=== PATIENT | female | born 1965 | race African-American/Black ===

== ENCOUNTER 2017-04-28 13:22 | Inpatient (IN) | payer OTHER ==
[2017-04-28 15:25] VITALS: BMI 20.8
--- NOTE | 2017-04-28 19:06 | HP ---
CIWA Score - CIWA Score Nausea/Vomitin-Mild Nausea/No Vomiting Muscle Tremors: 4-Moderate,w/Arms Extend Anxiety: 4-Mod. Anxious/Guarded Agitation: 4-Moderately Restless Paroxysmal Sweats: 1-Minimal Palms Moist Orientation: 1-Uncertain about Date Tacttile Disturbances: 0-None Auditory Disturbances: 0-None Visual Disturbances: 0-None Headache: 0-None Present CIWA-Ar Total Score: 15 Admission ROS S - HPI Chief Complaint: WITHDRAWAL SX Allergies/Adverse Reactions: Allergies Allergy/AdvReac Type Severity Reaction Status Date / Time erythromycin base Allergy Severe Hives Verified 04/28/17 17:52 tomato Allergy Severe Hives Verified 04/28/17 17:52 History of Present Illness: 51 YEARS OLD FEMALE WITH LONG HISTORY OF ALCOHOL NICOTINE DEPENDENCE HAS WEIGHT LOSS AND DEPRESSION IS ADMITTED TO DETOX Exam Limitations: No Limitations - Ebola screening Have you traveled outside of the country in the last 21 days: No Have you had contact with anyone from an Ebola affected area: No Have you been sick,other than usual withdrawal symptoms: No Do you have a fever: No - Review of Systems Constitutional: Loss of Appetite, Changes in sleep, Unintentional Wgt. Loss, Unexplained wgt Loss EENT: reports: No Symptoms Reported Respiratory: reports: No Symptoms reported Cardiac: reports: No Symptoms Reported GI: reports: Diarrhea, Nausea, Poor Appetite, Poor Fluid Intake, Abdominal cramping : reports: No Symptoms Reported Musculoskeletal: reports: No Symptoms Reported Integumentary: reports: No Symptoms Reported Neuro: reports: Tremors Endocrine: reports: No Symptoms Reported Hematology: reports: No Symptoms Reported Psychiatric: reports: Judgement Intact, Anxious, Depressed Other Systems: Reviewed and Negative Patient History - Patient Medical History Hx Anemia: No Hx Asthma: No Hx Chronic Obstructive Pulmonary Disease (COPD): No Hx Cancer: No Hx Cardiac Disorders: No Hx Congestive Heart Failure: No Hx Hypertension: No Hx Hypercholesterolemia: No Hx Pacemaker: No HX Cerebrovascular Accident: No Hx Seizures: No Hx Diabetes: No Hx Gastrointestinal Disorders: No Hx Liver Disease: No Hx Genitourinary Disorders: No Hx Sexually Transmitted Disorders: No Hx Renal Disease (ESRD): No Hx Thyroid Disease: No Hx Human Immunodeficiency Virus (HIV): No Hx Hepatitis C: No Hx Depression: Yes Hx Suicide Attempt: No Hx Bipolar Disorder: No Hx Schizophrenia: No - Patient Surgical History Past Surgical History: Yes Hx Neurologic Surgery: No Hx Cataract Extraction: No Hx Cardiac Surgery: No Hx Lung Surgery: No Hx Breast Surgery: No Hx Breast Biopsy: No Hx Abdominal Surgery: No Hx Appendectomy: No Hx Cholecystectomy: No Hx Genitourinary Surgery: No Hx Section: No Hx Orthopedic Surgery: No Hx Hysterectomy: No Other Surgical History: 1997 RIGHT OVERY REMOVED Anesthesia Reaction: No - PPD History Previous Implant?: Yes Documented Results: Negative w/o proof Implanted On Prior [facility] Admission?: No PPD to be Administered?: Yes - Reproductive History Patient is a Female of Child Bearing Age (11 -55 yrs old): Yes Last Menstrual Period: 04/27/08 Patient : No - Smoking Cessation Smoking history: Current every day smoker Have you smoked in the past 12 months: Yes Aproximately how many cigarettes per day: 5 Hx Chewing Tobacco Use: No Initiated information on smoking cessation: Yes 'Breaking Loose' booklet given: 04/28/17 - Substance & Tx. History Hx Alcohol Use: Yes Hx Substance Use: Yes Substance Use Type: Alcohol, Cocaine Hx Substance Use Treatment: Yes (2014) - Substances Abused Alcohol Route: Oral Frequency: Daily Amount used: liquor- 3 pints, beer- 3 six packs Age of first use: 27 Date of Last Use: 04/28/17 Crack Route: Smoking Frequency: Daily Amount used: 10 bags Age of first use: 32 Date of Last Use: 04/28/17 Family Disease History - Family Disease History Family Disease History: [place]: Mother (), Other: Father ( KILLED), Mother Admission Physical Exam [facility] - Vital Signs Vital Signs: Vital Signs - 24 hr 04/28/17 15:19 Temperature 98.1 F Pulse Rate 92 H Respiratory 78 H Rate Blood Pressure 100/78 - Physical General Appearance: Yes: Appropriately Dressed, Mild Distress, Moderate Distress , Thin, Tremorous, Irritable, Sweating, Anxious HEENTM: Yes: Hearing grossly Normal, Normal ENT Inspection, Normocephalic, Normal Voice Respiratory: Yes: Chest Non-Tender, Lungs Clear, Normal Breath Sounds, No Respiratory Distress, No Accessory Muscle Use Neck: Yes: Supple, Trachea in good position Breast: Yes: Breasts Symetrical Cardiology: Yes: Regular Rhythm, S1, S2, Tachycardia Abdominal: Yes: Normal Bowel Sounds, Non Tender, Soft Genitourinary: Yes: Within Normal Limits Back: Yes: Normal Inspection Musculoskeletal: Yes: full range of Motion, Gait Steady Extremities: Yes: Normal Inspection, Normal Range of Motion, Non-Tender, Tremors Neurological: Yes: Alert, Motor Strength 5/5, Normal Response, Depressed Affect Integumentary: Yes: Warm Lymphatic: Yes: Within Normal Limits - Diagnostic (1) Alcohol dependence with uncomplicated withdrawal Current Visit: Yes Status: Acute (2) Nicotine dependence Current Visit: Yes Status: Acute Qualifiers: Nicotine product type: cigarettes Substance use status: in withdrawal Qualified Code(s): F17.213 - Nicotine dependence, cigarettes, with withdrawal (3) Weight loss Current Visit: Yes Status: Acute (4) Depression (emotion) Current Visit: Yes Status: Suspected Qualifiers: Depression Type: dysthymia Qualified Code(s): F34.1 - Dysthymic disorder Cleared for Admission [facility] - Detox or Rehab [facility] Level of Care: Medically Managed Detox Regimen/Protocol: Librium [facility] Breath Alcohol Content Breath Alcohol Content: 0 Urine Pregancy Test - Result Urine Test Results: Negative- NO Line Present Urine Drug Screen - Results Drug Screen Negative: No Urine Drug Screen Results: CLARISSA-Cocaine, BZO-Benzodiazepines
[2017-04-28] MEDS ORDERED: MAGNESIUM HYDROX 2400MG/30ML ORAL SUSPENSION 30 ML CUP PO PRN (19:09)
[2017-04-28] MEDS ORDERED: diphenhydrAMINE HCL 50 MG CAPSULE PO PRN (19:09)
[2017-04-28] MEDS ORDERED: MAG HYDROX/AL HYDROX/SIMETH 30 ML UNIT-DOSE CUP PO PRN (19:09)
[2017-04-28] MEDS ORDERED: ACETAMINOPHEN 325 MG TABLET (FP) PO PRN (19:09)
[2017-04-28] MEDS ORDERED: LOPERAMIDE HCL 2 MG CAPSULE PO PRN (19:09)
[2017-04-28] MEDS ORDERED: guaiFENesin/D-METHORPHAN HB 10 ML UNIT-DOSE CUPS PO PRN (19:09)
[2017-04-28] MEDS ORDERED: P-EPHED 60MG/TRIPROLIDI 2.5MG TABLET PO PRN (19:09)
[2017-04-28] MEDS ORDERED: chlordiazePOXIDE HCL 25 MG CAPSULE PO PRN (19:09)
[2017-04-28] MEDS ORDERED: IBUPROFEN 400 MG TABLET (FP) PO PRN (19:09)
[2017-04-28] MEDS ORDERED: MENTHOL/PHENOL 1 EACH UD MM PRN (19:09)
[2017-04-28] MEDS ORDERED: NICOTINE POLACRILEX 2 MG GUM BC PRN (19:09)
[2017-04-28] MEDS ORDERED: chlordiazePOXIDE HCL 25 MG CAPSULE PO ONE (19:09)
[2017-04-28] MEDS ORDERED: MAGNESIUM CITRATE 300 ML BOTTLE PO PRN (19:09)
[2017-04-28] MEDS ORDERED: hydrOXYzine PAMOATE 50 MG CAPSULE (FP) PO PRN (19:09)
[2017-04-28] MEDS: THIAMINE HCL 100 MG TABLET (FP) PO SCH (23:32)
[2017-04-28] MEDS: chlordiazePOXIDE HCL 25 MG CAPSULE PO SCH (23:32)
[2017-04-29 00:16] LABS: URINE APPEARANCE SLCLOUDY; URINE BILIRUBIN NEGATIVE (NEGATIVE); URINE BLOOD NEGATIVE (NEGATIVE); URINE COLOR YELLOW; URINE GLUCOSE (UA) NEGATIVE (NEGATIVE); URINE KETONE NEGATIVE (NEGATIVE); URINE NITRITE NEGATIVE (NEGATIVE); URINE PROTEIN NEGATIVE (NEGATIVE)
[2017-04-29 00:18] LABS: URINE LEUK ESTERASE 3+ (NEGATIVE)
[2017-04-29 00:24] LABS: URINE RBC 2 /hpf (0-3); URINE WBC 42 /hpf (3-5)
[2017-04-29] MEDS: chlordiazePOXIDE HCL 25 MG CAPSULE PO SCH ×4 (06:42→22:58)
--- NOTE | 2017-04-29 09:30 | EKG ---
Test Reason : Blood Pressure : / mmHG Vent. Rate : 076 BPM Atrial Rate : 076 BPM P-R Int : 154 ms QRS Dur : 090 ms QT Int : 402 ms P-R-T Axes : 067 024 057 degrees QTc Int : 452 ms NORMAL SINUS RHYTHM NORMAL ECG NO PREVIOUS ECGS AVAILABLE Confirmed by MD TRAV, TEGAN ([id number]) on 04/29/2017 9:29:39 AM Referred By: Confirmed By:TEGAN RAVI MD
[2017-04-29 11:03] LABS: MCH 32.2 pg (25.7-33.7); MCHC 33.2 g/dl (32.0-36.0); MEAN CELL VOLUME 97.1 fl (80-96); MEAN PLT VOLUME 9.7 fl (7.5-11.1); PLATELET COUNT 157 K/MM3 (134-434); RDW 13.9 % (11.6-15.6); WHITE BLOOD COUNT 3.7 K/mm3 (4.0-10.0)
[2017-04-29] MEDS: PRENATAL VITAMINS W/ FOLIC ACID TABLET (FP) PO SCH (11:07)
[2017-04-29] MEDS: NICOTINE 14 MG/24 HOURS TOPICAL PATCH TD SCH (11:08)
[2017-04-29 11:17] LABS: ALBUMIN 3.4 g/dl (3.4-5.0); ALK PHOS 79 U/L (45-117); ANION GAP 12 (8-16); BILIRUBIN,TOTAL 0.7 mg/dL (0.2-1.0); CALCIUM 9.8 mg/dL (8.5-10.1); CO2 25 mmol/L (21-32); CREATININE 0.8 mg/dL (0.55-1.02); GLUCOSE,RANDOM 156 mg/dL (74-106); SGOT/AST 16 U/L (15-37); SGPT/ALT 28 U/L (12-78); TOT PROT 8.6 g/dl (6.4-8.2)
--- NOTE | 2017-04-29 13:14 | PN ---
S CIWA - CIWA Score Nausea/Vomitin Muscle Tremors: 2 Anxiety: 2 Agitation: 2 Paroxysmal Sweats: 2 Orientation: 0-Oriented Tacttile Disturbances: 1-Very Mild Itch/Numbness Auditory Disturbances: 1-Very Mild Visual Disturbances: 1-Very Mild Sensitivity Headache: 2-Mild CIWA-Ar Total Score: 15 S Progress Note (SOAP) Subjective: tremors, sweats, sleep interruption Objective: 04/29/17 13:13 Vital Signs - 8 hr 04/29/17 04/29/17 06:55 10:00 Temperature 97.2 F L 96.8 F L Pulse Rate 82 105 H Respiratory 18 18 Rate Blood Pressure 116/75 94/65 Laboratory Last Values WBC 3.7 K/mm3 (4.0-10.0) L 04/29/17 07:50 RBC 4.04 M/mm3 (3.60-5.2) 04/29/17 07:50 Hgb 13.0 GM/dL (10.7-15.3) 04/29/17 07:50 Hct 39.3 % (32.4-45.2) 04/29/17 07:50 MCV 97.1 fl (80-96) H 04/29/17 07:50 MCH 32.2 pg (25.7-33.7) 04/29/17 07:50 MCHC 33.2 g/dl (32.0-36.0) 04/29/17 07:50 RDW 13.9 % (11.6-15.6) 04/29/17 07:50 Plt Count 157 K/MM3 (134-434) 04/29/17 07:50 MPV 9.7 fl (7.5-11.1) 04/29/17 07:50 Sodium 138 mmol/L (136-145) 04/29/17 07:50 Potassium 4.1 mmol/L (3.5-5.1) 04/29/17 07:50 Chloride 101 mmol/L (98-107) 04/29/17 07:50 Carbon Dioxide 25 mmol/L (21-32) 04/29/17 07:50 Anion Gap 12 (8-16) 04/29/17 07:50 BUN 15 mg/dL (7-18) 04/29/17 07:50 Creatinine 0.8 mg/dL (0.55-1.02) 04/29/17 07:50 Creat Clearance w eGFR > 60 (>60) 04/29/17 07:50 Random Glucose 156 mg/dL (74-106) H 04/29/17 07:50 Calcium 9.8 mg/dL (8.5-10.1) 04/29/17 07:50 Total Bilirubin 0.7 mg/dL (0.2-1.0) 04/29/17 07:50 AST 16 U/L (15-37) 04/29/17 07:50 ALT 28 U/L (12-78) 04/29/17 07:50 Alkaline Phosphatase 79 U/L (45-117) 04/29/17 07:50 Total Protein 8.6 g/dl (6.4-8.2) H 04/29/17 07:50 Albumin 3.4 g/dl (3.4-5.0) 04/29/17 07:50 Urine Color Yellow 04/28/17 20:22 Urine Appearance Slcloudy 04/28/17 20:22 Urine pH 7.0 (5.0-8.0) 04/28/17 20:22 Ur Specific [place] 1.015 (1.005-1.025) 04/28/17 20:22 Urine Protein Negative (NEGATIVE) 04/28/17 20:22 Urine Glucose (UA) Negative (NEGATIVE) 04/28/17 20:22 Urine Ketones Negative (NEGATIVE) 04/28/17 20:22 Urine Blood Negative (NEGATIVE) 04/28/17 20:22 Urine Nitrite Negative (NEGATIVE) 04/28/17 20:22 Urine Bilirubin Negative (NEGATIVE) 04/28/17 20:22 Urine Urobilinogen 2.0 mg/dL (0.2-1.0) H 04/28/17 20:22 Ur Leukocyte Esterase 3+ (NEGATIVE) H 04/28/17 20:22 Urine RBC 2 /hpf (0-3) 04/28/17 20:22 Urine WBC 42 /hpf (3-5) 04/28/17 20:22 Ur Epithelial Cells Moderate /hpf (FEW) 04/28/17 20:22 labs noted, positive leukocyte esterase Assessment: 04/29/17 13:13 withdrawal sx Plan: continue detox, repeat UA
--- NOTE | 2017-04-29 18:20 | CONSULT ---
[facility] Psychiatric Consult - Data Date of interview: 04/29/17 Admission source: [facility] Identifying data: First admission to [facility] for this 51 y/o AA female seeking detox treatment on for alcohol and cocaine (crack) dependence.Patient is single,a mother of ten,domiciled,unemployed and supported on SSI benefits. Substance Abuse History: Discussed with patient in this interview. Smoking Cessation. Smoking history: Current every day smoker. Have you smoked in the past 12 months: Yes. Aproximately how many cigarettes per day: 5. Hx Chewing Tobacco Use: No. Initiated information on smoking cessation: Yes. 'Breaking Loose' booklet given: 04/28/17. - Substance & Tx. History. Hx Alcohol Use: Yes. Hx Substance Use: Yes. Substance Use Type: Alcohol, Cocaine. Hx Substance Use Treatment: Yes (2014). - Substances Abused. Alcohol. Route: Oral. Frequency: Daily. Amount used: liquor- 3 pints, beer- 3 six packs. Age of first use: 27. Date of Last Use: 04/28/17. Crack. Route: Smoking. Frequency: Daily. Amount used: 10 bags. Age of first use: 32. Date of Last Use: 04/28/17 Medical History: Patient endorses good general health. Psychiatric History: Patient denies. Physical/Sexual Abuse/Trauma History: No reported history of abuse. Additional Comment: Urine Drug Screen Results: CLARISSA-Cocaine, BZO- Benzodiazepines.Noted. Mental Status Exam - Mental Status Exam Alert and Oriented to: Time, Place, Person Cognitive Function: Good Patient Appearance: Well Groomed Mood: Hopeful, Euthymic Affect: Appropriate, Normal Range Patient Behavior: Cooperative Speech Pattern: Clear Voice Loudness: Normal Thought Process: Intact, Goal Oriented Thought Disorder: Not Present Hallucinations: Denies Suicidal Ideation: Denies Homicidal Ideation: Denies Insight/Judgement: Poor Sleep: Poorly, Difficulty falling asleep Appetite: Good Muscle strength/Tone: Normal Gait/Station: Normal Psychiatric Findings - Problem List ([place] 1, 2,3) (1) Alcohol dependence with uncomplicated withdrawal Current Visit: Yes Status: Acute (2) Cocaine dependence Current Visit: Yes Status: Acute (3) Nicotine dependence Current Visit: Yes Status: Acute Qualifiers: Nicotine product type: cigarettes Substance use status: in withdrawal Qualified Code(s): F17.213 - Nicotine dependence, cigarettes, with withdrawal (4) Insomnia Current Visit: Yes Status: Acute - Initial Treatment Plan Initial Treatment Plan: Psychoeducation.Detoxification.Ambien 5 mg po hs.Side effects/benefits discussed with patient.She agrees with careplan.Observation.
[2017-04-29] MEDS: ZOLPIDEM TARTRATE 5 MG TABLET PO PRN (22:58)
[2017-04-29] MEDS: THIAMINE HCL 100 MG TABLET (FP) PO SCH (22:58)
[2017-04-30] MEDS: chlordiazePOXIDE HCL 25 MG CAPSULE PO SCH ×2 (06:06→10:30)
[2017-04-30] MEDS: PRENATAL VITAMINS W/ FOLIC ACID TABLET (FP) PO SCH (10:30)
[2017-04-30] MEDS: NICOTINE 14 MG/24 HOURS TOPICAL PATCH TD SCH (10:30)
--- NOTE | 2017-04-30 13:37 | PN ---
[facility] CIWA - CIWA Score Nausea/Vomitin-No Nausea/No Vomiting Muscle Tremors: 3 Anxiety: 3 Agitation: 2 Paroxysmal Sweats: 2 Orientation: 0-Oriented Tacttile Disturbances: 0-None Auditory Disturbances: 0-None Visual Disturbances: 0-None Headache: 0-None Present CIWA-Ar Total Score: 10 S Progress Note (SOAP) Subjective: Anxiety,tremors,sweating,interrupted sleep,restless Objective: 04/30/17 13:37 Vital Signs - 8 hr 04/30/17 04/30/17 06:50 10:00 Temperature 97.6 F 97.7 F Pulse Rate 77 95 H Respiratory 18 18 Rate Blood Pressure 107/74 102/79 Laboratory Last Values WBC 3.7 K/mm3 (4.0-10.0) L 04/29/17 07:50 RBC 4.04 M/mm3 (3.60-5.2) 04/29/17 07:50 Hgb 13.0 GM/dL (10.7-15.3) 04/29/17 07:50 Hct 39.3 % (32.4-45.2) 04/29/17 07:50 MCV 97.1 fl (80-96) H 04/29/17 07:50 MCH 32.2 pg (25.7-33.7) 04/29/17 07:50 MCHC 33.2 g/dl (32.0-36.0) 04/29/17 07:50 RDW 13.9 % (11.6-15.6) 04/29/17 07:50 Plt Count 157 K/MM3 (134-434) 04/29/17 07:50 MPV 9.7 fl (7.5-11.1) 04/29/17 07:50 Sodium 138 mmol/L (136-145) 04/29/17 07:50 Potassium 4.1 mmol/L (3.5-5.1) 04/29/17 07:50 Chloride 101 mmol/L (98-107) 04/29/17 07:50 Carbon Dioxide 25 mmol/L (21-32) 04/29/17 07:50 Anion Gap 12 (8-16) 04/29/17 07:50 BUN 15 mg/dL (7-18) 04/29/17 07:50 Creatinine 0.8 mg/dL (0.55-1.02) 04/29/17 07:50 Creat Clearance w eGFR > 60 (>60) 04/29/17 07:50 Random Glucose 156 mg/dL (74-106) H 04/29/17 07:50 Calcium 9.8 mg/dL (8.5-10.1) 04/29/17 07:50 Total Bilirubin 0.7 mg/dL (0.2-1.0) 04/29/17 07:50 AST 16 U/L (15-37) 04/29/17 07:50 ALT 28 U/L (12-78) 04/29/17 07:50 Alkaline Phosphatase 79 U/L (45-117) 04/29/17 07:50 Total Protein 8.6 g/dl (6.4-8.2) H 04/29/17 07:50 Albumin 3.4 g/dl (3.4-5.0) 04/29/17 07:50 Urine Color Yellow 04/28/17 20:22 Urine Appearance Slcloudy 04/28/17 20:22 Urine pH 7.0 (5.0-8.0) 04/28/17 20:22 Ur Specific [place] 1.015 (1.005-1.025) 04/28/17 20:22 Urine Protein Negative (NEGATIVE) 04/28/17 20:22 Urine Glucose (UA) Negative (NEGATIVE) 04/28/17 20:22 Urine Ketones Negative (NEGATIVE) 04/28/17 20:22 Urine Blood Negative (NEGATIVE) 04/28/17 20:22 Urine Nitrite Negative (NEGATIVE) 04/28/17 20:22 Urine Bilirubin Negative (NEGATIVE) 04/28/17 20:22 Urine Urobilinogen 2.0 mg/dL (0.2-1.0) H 04/28/17 20:22 Ur Leukocyte Esterase 3+ (NEGATIVE) H 04/28/17 20:22 Urine RBC 2 /hpf (0-3) 04/28/17 20:22 Urine WBC 42 /hpf (3-5) 04/28/17 20:22 Ur Epithelial Cells Moderate /hpf (FEW) 04/28/17 20:22 RPR Titer Nonreactive (NONREACTIVE) 04/29/17 07:50 labs noted Assessment: 04/30/17 13:37 Withdrawal sx. Plan: Continue detox
[2017-04-30] MEDS: chlordiazePOXIDE 5 MG CAPSULE PO SCH ×2 (17:07→22:32)
[2017-04-30] MEDS: ZOLPIDEM TARTRATE 5 MG TABLET PO PRN (22:32)
[2017-04-30] MEDS: THIAMINE HCL 100 MG TABLET (FP) PO SCH (22:32)
[2017-04-30] MEDS ORDERED: chlordiazePOXIDE 5 MG CAPSULE PO SCH (23:00)
[2017-05-01] MEDS: chlordiazePOXIDE 5 MG CAPSULE PO SCH ×2 (06:02→10:46)
[2017-05-01 06:43] VITALS: TEMP 97.5
[2017-05-01] MEDS: PRENATAL VITAMINS W/ FOLIC ACID TABLET (FP) PO SCH (10:42)
[2017-05-01] MEDS: NICOTINE 14 MG/24 HOURS TOPICAL PATCH TD SCH (10:47)
--- NOTE | 2017-05-01 11:37 | PN ---
[facility] Progress Note (SOAP) Subjective: feeling fine a little anxious Objective: 05/01/17 11:36 Vital Signs Temperature 97.5 F L 05/01/17 06:00 Pulse Rate 80 05/01/17 06:00 Respiratory Rate 18 05/01/17 06:00 Blood Pressure 105/68 05/01/17 06:00 O2 Sat by Pulse Oximetry (%) awake/alert ambulating no acute distress Assessment: 05/01/17 11:37 mild withdrawal sx Plan: continue detox d/c in am
--- NOTE | 2017-05-01 14:21 | PN ---
[facility] Progress Note Note: pt has an opportunity to go to rehab today,pt denies any withdrawals and feels fine. pt will be d/c today.
--- NOTE | 2017-05-01 14:27 | DS ---
[facility] Detox Discharge Summary Admission Date: 04/28/17 - Physical Exam Results Vital Signs: Vital Signs Temperature 97.5 F L 05/01/17 06:00 Pulse Rate 80 05/01/17 06:00 Respiratory Rate 18 05/01/17 06:00 Blood Pressure 105/68 05/01/17 06:00 O2 Sat by Pulse Oximetry (%) - Medication Discharge Medications: Ambulatory Orders NK [No Known Home Medication] 04/28/17
[2017-05-01 15:22] VITALS: BP 103/73; PULSE 97
[2017-05-01] MEDS ORDERED: chlordiazePOXIDE HCL 10 MG CAPSULE PO SCH ×2 (17:00→23:00)
== END 2017-05-01 15:05 | disposition other institution (70) | DRG 774 ==
LOC: YASAS 13:22 → Y6N 17:28
PROVIDERS: ADMIT Internal Medicine Addiction Medicine; ATTEND Internal Medicine Addiction Medicine
PROC: HZ2ZZZZ Detoxification Services for Substance Abuse Treatment (ICD-10-PCS; principal; 2017-04-28)
DX: F10.230 Alcohol dependence with withdrawal, uncomplicated (principal); F14.20 Cocaine dependence, uncomplicated; F17.213 Nicotine dependence, cigarettes, with withdrawal; F34.1 Dysthymic disorder; R00.0 Tachycardia, unspecified; G47.00 Insomnia, unspecified; Z91.018 Allergy to other foods; Z87.898 Personal history of other specified conditions
CPT/HCPCS: 36415; 80053; 81003; 81015; 85027; 86593; 93005; 93010

== ENCOUNTER 2017-05-01 15:15 | Inpatient (IN) | payer OTHER ==
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
[2017-05-01] MEDS ORDERED: SUVOREXANT 10 MG TABLET PO PRN (16:24)
[2017-05-01] MEDS ORDERED: LOPERAMIDE HCL 2 MG CAPSULE PO PRN (16:26)
[2017-05-01] MEDS ORDERED: IBUPROFEN 400 MG TABLET (FP) PO PRN (16:26)
[2017-05-01] MEDS ORDERED: NICOTINE 14 MG/24 HOURS TOPICAL PATCH TD PRN (16:26)
[2017-05-01] MEDS ORDERED: MAGNESIUM HYDROX 2400MG/30ML ORAL SUSPENSION 30 ML CUP PO PRN (16:26)
[2017-05-01] MEDS ORDERED: MAGNESIUM CITRATE 300 ML BOTTLE PO PRN (16:26)
[2017-05-01] MEDS ORDERED: MENTHOL/PHENOL 1 EACH UD MM PRN (16:26)
[2017-05-01] MEDS ORDERED: ACETAMINOPHEN 325 MG TABLET (FP) PO PRN (16:26)
[2017-05-01] MEDS ORDERED: NICOTINE POLACRILEX 2 MG GUM BUC PRN (16:26)
[2017-05-01] MEDS ORDERED: MAG HYDROX/AL HYDROX/SIMETH 30 ML UNIT-DOSE CUP PO PRN (16:26)
[2017-05-01] MEDS ORDERED: P-EPHED 60MG/TRIPROLIDI 2.5MG TABLET PO PRN (16:26)
[2017-05-01] MEDS ORDERED: guaiFENesin/D-METHORPHAN HB 10 ML UNIT-DOSE CUPS PO PRN (16:26)
[2017-05-01] MEDS ORDERED: diphenhydrAMINE HCL 50 MG CAPSULE PO PRN (16:26)
--- NOTE | 2017-05-01 16:26 | HP ---
[facility] Re[facility] Assess/Revision - Admission History Admitted to Rehab from: [facility] [place] Date of Admission to Rehab: 05/01/17 - Findings Detox History & Physical reviewed: Yes Concur with findings: Yes Comments/Additional Findings: transferred from detox to rehab admission as per protocol
[2017-05-01] MEDS ORDERED: THIAMINE HCL 100 MG TABLET (FP) PO SCH (22:00)
[2017-05-02] MEDS ORDERED: metFORMIN HCL 500 MG TABLET (FP) PO SCH (07:00)
--- NOTE | 2017-05-02 07:33 | PN ---
S Progress Note (SOAP) Subjective: Pt. had two falls within less than one hour. 1st fall: occurred at 6:05am: Pt. reports she was in bathroom and went to flush the toilet and missed the handle. She fell on her right side of her upper body. 2nd fall: occurred at 6:45am: Pt. walking to her room and states her knees gave out and she fell on her left hip. She denies hitting her head on both occasions. Objective: 05/02/17 07:31 Last Vital Signs Temp Pulse Resp BP Pulse Ox 97.6 F 75 18 111/77 05/02/17 07:18 05/02/17 07:18 05/02/17 07:18 05/02/17 07:18 Assessment: 05/02/17 07:31 VSS, skin intact, no bruises noted, full ROM Plan: During the assessment, pt. reported she did not disclose during her admission that she is diabetic and bipolar. She has not had her anti-psychotic or diabetic since prior to admission. Plan: Fall protocol #2 initiated BGM BIDAC Metformin 500mg PO BID IBU prn 1:1 ordered Psych consult
[2017-05-02 09:05] VITALS: BP 94/68; PULSE 93; TEMP 97.8
[2017-05-02] MEDS ORDERED: PRENATAL VITAMINS W/ FOLIC ACID TABLET (FP) PO SCH (10:00)
--- NOTE | 2017-05-02 10:02 | PN ---
[facility] Progress Note Note: Pt. decided to sign out ama. I came up unit to see pt. and assess her mental status. She's currently on fall protocol #2,she does not want to stay for 24hrs to complete the protocol. She's alert,coherent,oriented and cooperative. Mini mental exam is normal. Vital Signs - 8 hr 05/02/17 05/02/17 05/02/17 02:46 03:30 07:18 Temperature 97.7 F 97.6 F Pulse Rate 67 75 Respiratory 18 18 18 Rate Blood Pressure 111/76 111/77 05/02/17 05/02/17 07:39 08:05 Temperature 97.5 F L 97.8 F Pulse Rate 79 93 H Respiratory 18 18 Rate Blood Pressure 120/84 94/68 Laboratory Last Values POC Glucometer 92 UNITS (()) 05/02/17 06:40 Pt. filled her prescriptions for zoloft, depakote & metformin between 04/14 to 04/27/17. She does not need any prescriptions.
== END 2017-05-02 11:10 | disposition left against medical advice (07) | DRG 770 ==
LOC: YASAS 15:15 → Y3E 15:17
PROVIDERS: ADMIT Psychiatry & Neurology Psychiatry; ATTEND Psychiatry & Neurology Psychiatry
PROC: HZ42ZZZ Group Counseling for Substance Abuse Treatment, Cognitive-Behavioral (ICD-10-PCS; principal; 2017-05-01)
DX: F10.20 Alcohol dependence, uncomplicated (principal); F14.20 Cocaine dependence, uncomplicated; F17.210 Nicotine dependence, cigarettes, uncomplicated; F19.24 Other psychoactive substance dependence with psychoactive substance-induced mood disorder; E11.9 Type 2 diabetes mellitus without complications; Z91.018 Allergy to other foods; Z79.84 Long term (current) use of oral hypoglycemic drugs; W18.30XA Fall on same level, unspecified, initial encounter; Z91.81 History of falling; Y93.89 Activity, other specified; Y92.230 Patient room in hospital as the place of occurrence of the external cause

== ENCOUNTER 2017-07-05 11:18 | Inpatient (IN) | payer OTHER ==
[2017-07-05 12:57] VITALS: BMI 21.6
--- NOTE | 2017-07-05 15:02 | HP ---
CIWA Score - CIWA Score Nausea/Vomitin Muscle Tremors: 3 Anxiety: 3 Agitation: 3 Paroxysmal Sweats: 2 Orientation: 0-Oriented Tacttile Disturbances: 2-Mild Itch/Numbness/Burn Auditory Disturbances: 2-Mild Harshness/Frighten Visual Disturbances: 1-Very Mild Sensitivity Headache: 2-Mild CIWA-Ar Total Score: 21 Admission ROS BHS - HPI Chief Complaint: i need help to stop drinking alcohol and crack Allergies/Adverse Reactions: Allergies Allergy/AdvReac Type Severity Reaction Status Date / Time erythromycin base Allergy Severe Hives Verified 07/05/17 14:54 tomato Allergy Severe Hives Verified 07/05/17 14:54 History of Present Illness: this 51 years old female with alcohol and crack dependence,seeking detox,last treatment 04/28/17 to 05/01/17 syncope alcohol related nicotine dependence bipolar disorder longest period of sobriety 10 years Exam Limitations: No Limitations - Ebola screening Have you traveled outside of the country in the last 21 days: No (N) Have you had contact with anyone from an Ebola affected area: No Have you been sick,other than usual withdrawal symptoms: No Do you have a fever: No - Review of Systems Constitutional: Loss of Appetite, Malaise, Night Sweats, Changes in sleep, Weakness, Unintentional Wgt. Loss EENT: reports: Nose Congestion Respiratory: reports: No Symptoms reported Cardiac: reports: No Symptoms Reported GI: reports: Diarrhea, Nausea, Vomiting, Abdominal cramping : reports: No Symptoms Reported Musculoskeletal: reports: Back Pain, Muscle Pain Integumentary: reports: Dryness Neuro: reports: Headache, Tremors Endocrine: reports: No Symptoms Reported Hematology: reports: No Symptoms Reported Psychiatric: reports: No Sypmtoms Reported, Judgement Intact, Mood/Affect Appropiate, Depressed Patient History - Patient Medical History Hx Anemia: No Hx Asthma: No Hx Chronic Obstructive Pulmonary Disease (COPD): No Hx Cancer: No Hx Cardiac Disorders: No Hx Congestive Heart Failure: No Hx Hypertension: No Hx Hypercholesterolemia: No Hx Pacemaker: No HX Cerebrovascular Accident: No Hx Seizures: No Hx Diabetes: No Hx Gastrointestinal Disorders: No Hx Liver Disease: No Hx Genitourinary Disorders: No Hx Sexually Transmitted Disorders: No Hx Renal Disease (ESRD): No Hx Thyroid Disease: No Hx Human Immunodeficiency Virus (HIV): No (07/07 negative) Hx Hepatitis C: No Hx Depression: No Hx Suicide Attempt: No Hx Bipolar Disorder: No Hx Schizophrenia: No Other Medical History: no suicidal,no homicidal - Patient Surgical History Past Surgical History: Yes Hx Neurologic Surgery: No Hx Cataract Extraction: No Hx Cardiac Surgery: No Hx Lung Surgery: No Hx Breast Surgery: No Hx Breast Biopsy: No Hx Abdominal Surgery: No Hx Appendectomy: No Hx Cholecystectomy: No Hx Genitourinary Surgery: No Hx Section: No Hx Orthopedic Surgery: No Hx Hysterectomy: No Other Surgical History: 1997 RIGHT OVERY REMOVED Anesthesia Reaction: No - PPD History Previous Implant?: Yes Documented Results: Negative w/proof Date: 04/30/17 Results: 0 mm PPD to be Administered?: No - Reproductive History Patient is a Female of Child Bearing Age (11 -55 yrs old): Yes Last Menstrual Period: 08/29/07 Patient : No - Smoking Cessation Smoking history: Current every day smoker Have you smoked in the past 12 months: Yes Aproximately how many cigarettes per day: 5 Hx Chewing Tobacco Use: No Initiated information on smoking cessation: Yes 'Breaking Loose' booklet given: 07/05/17 - Substance & Tx. History Hx Alcohol Use: Yes Hx Substance Use: Yes Substance Use Type: Alcohol, Cocaine Hx Substance Use Treatment: Yes ([facility] 04/28/17 to 05/01/17) - Substances Abused Alcohol Route: Oral Frequency: Daily Amount used: 3 PINTS RUM Age of first use: 27 Date of Last Use: 07/05/17 Cocaine Route: Smoking Frequency: Daily Amount used: $200 Age of first use: 27 Date of Last Use: 07/05/17 Family Disease History - Family Disease History Family Disease History: [place]: Mother (), Other: Father ( KILLED), Mother Admission Physical Exam S - Vital Signs Vital Signs: Vital Signs - 24 hr 07/05/17 12:51 Temperature 97 F L Pulse Rate 93 H Respiratory 20 Rate Blood Pressure 86/70 - Physical General Appearance: Yes: Moderate Distress, Tremorous, Irritable, Sweating, Anxious HEENTM: Yes: Normal ENT Inspection, JENNIFER, Pharynx Normal Respiratory: Yes: Lungs Clear, Normal Breath Sounds, No Respiratory Distress Neck: Yes: Within Normal Limits, Supple, Trachea in good position Breast: Yes: Breast Exam Deferred Cardiology: Yes: Within Normal Limits, Regular Rhythm, Regular Rate, S1, S2 Abdominal: Yes: Within Normal Limits, Normal Bowel Sounds, Non Tender, Flat, Soft Genitourinary: Yes: Within Normal Limits Back: Yes: Muscle Spasm Musculoskeletal: Yes: full range of Motion, Back pain, Muscle Pain Extremities: Yes: Within Normal Limits, Normal Range of Motion, Tremors Neurological: Yes: Within Normal Limits, clinical molecular geneticist II-XII NML intact, Alert, Motor Strength 5/5 Integumentary: Yes: Dry Lymphatic: Yes: Within Normal Limits - Diagnostic (1) Alcohol dependence with uncomplicated withdrawal Current Visit: No Status: Chronic (2) Diabetes mellitus, type 2 Current Visit: No Status: Acute (3) Weight loss Current Visit: No Status: Acute (4) Cocaine dependence Current Visit: No Status: Chronic Qualifiers: Substance use status: uncomplicated Qualified Code(s): F14.20 - Cocaine dependence, uncomplicated (5) Insomnia Current Visit: No Status: Chronic (6) Nicotine dependence Current Visit: No Status: Chronic Qualifiers: Nicotine product type: cigarettes Substance use status: uncomplicated Qualified Code(s): F17.210 - Nicotine dependence, cigarettes, uncomplicated (7) Bipolar disorder Current Visit: Yes Status: Acute Cleared for Admission [facility] - Detox or Rehab [facility] Level of Care: Medically Managed Detox Regimen/Protocol: Librium [facility] Breath Alcohol Content Breath Alcohol Content: 0 Urine Pregancy Test - Result Urine Test Results: Negative- NO Line Present Urine Drug Screen - Results Drug Screen Negative: No Urine Drug Screen Results: CLARISSA-Cocaine, BZO-Benzodiazepines
[2017-07-05] MEDS ORDERED: MAGNESIUM HYDROX 2400MG/30ML ORAL SUSPENSION 30 ML CUP PO PRN (15:12)
[2017-07-05] MEDS ORDERED: hydrOXYzine PAMOATE 25 MG CAPSULE (FP) PO PRN (15:12)
[2017-07-05] MEDS ORDERED: MAGNESIUM CITRATE 300 ML BOTTLE PO PRN (15:12)
[2017-07-05] MEDS ORDERED: chlordiazePOXIDE HCL 25 MG CAPSULE PO PRN (15:12)
[2017-07-05] MEDS ORDERED: ACETAMINOPHEN 325 MG TABLET (FP) PO PRN (15:12)
[2017-07-05] MEDS ORDERED: guaiFENesin/D-METHORPHAN HB 10 ML UNIT-DOSE CUPS PO PRN (15:12)
[2017-07-05] MEDS ORDERED: MAG HYDROX/AL HYDROX/SIMETH 30 ML UNIT-DOSE CUP PO PRN (15:12)
[2017-07-05] MEDS ORDERED: LOPERAMIDE HCL 2 MG CAPSULE PO PRN (15:12)
[2017-07-05] MEDS ORDERED: MENTHOL/PHENOL 1 EACH UD MM PRN (15:12)
[2017-07-05] MEDS ORDERED: P-EPHED 60MG/TRIPROLIDI 2.5MG TABLET PO PRN (15:12)
[2017-07-05] MEDS ORDERED: chlordiazePOXIDE HCL 25 MG CAPSULE PO ONE (15:42)
[2017-07-05] MEDS: chlordiazePOXIDE HCL 25 MG CAPSULE PO SCH ×2 (17:17→22:43)
[2017-07-05] MEDS: THIAMINE HCL 100 MG TABLET (FP) PO SCH (22:43)
[2017-07-06] MEDS: chlordiazePOXIDE HCL 25 MG CAPSULE PO SCH (05:39)
--- NOTE | 2017-07-06 08:23 | CONSULT ---
[facility] Psychiatric Consult - Data Date of interview: 07/06/17 Admission source: [facility] Identifying data: This is 51 uyears old female with Bipolar Disorder hjistory, psychiatric hospitalization history inntoxoicated with: Alcohol, Cocaien and Nicotine Substance Abuse History: - Smoking Cessation. Smoking history: Current every day smoker. Have you smoked in the past 12 months: Yes. Aproximately how many cigarettes per day: 5. Hx Chewing Tobacco Use: No. Initiated information on smoking cessation: Yes. 'Breaking Loose' booklet given: 07/05/17. - Substance & Tx. History. Hx Alcohol Use: Yes. Hx Substance Use: Yes. Substance Use Type : Alcohol, Cocaine. Hx Substance Use Treatment: Yes ([facility] 04/28/17 to 05/01/17) Medical History: DM-2, Weight loss history, Psychiatric History: Patient reports to carry Bipolar disorder with most recent psychiatric admission on 1-2 months ago at [facility]. Reports taking currently: Trazodone 300mg po qhs. Risperdal 4mg poqd. Zoloft 10mg po qhs Physical/Sexual Abuse/Trauma History: Denies Additional Comment: Trazodone 300mg po qhs. Risperdal 4mg poqd. Zoloft 10mg po qhs Mental Status Exam - Mental Status Exam Alert and Oriented to: Person Cognitive Function: Fair Patient Appearance: Unkempt Mood: Sad Affect: Mood Congruent Patient Behavior: Cooperative Speech Pattern: Appropriate Voice Loudness: Mildly Soft/Quiet Thought Process: Circumstantial Thought Disorder: Being Controlled Hallucinations: Denies Suicidal Ideation: Denies Homicidal Ideation: Denies Insight/Judgement: Fair Sleep: Difficulty falling asleep Appetite: Weight loss Muscle strength/Tone: Normal Gait/Station: Normal Additional Comments: Trazodone 300mg po qhs. Risperdal 4mg poqd. Zoloft 10mg po qhs Psychiatric Findings - Problem List ([place] 1, 2,3) (1) Bipolar disorder Current Visit: Yes Status: Acute (2) Weight loss Current Visit: No Status: Acute (3) Alcohol dependence Current Visit: No Status: Chronic (4) Alcohol dependence with uncomplicated withdrawal Current Visit: No Status: Chronic (5) Cocaine dependence Current Visit: No Status: Chronic Qualifiers: Substance use status: uncomplicated Qualified Code(s): F14.20 - Cocaine dependence, uncomplicated (6) Nicotine dependence Current Visit: No Status: Chronic Qualifiers: Nicotine product type: cigarettes Substance use status: uncomplicated Qualified Code(s): F17.210 - Nicotine dependence, cigarettes, uncomplicated (7) Substance induced mood disorder Current Visit: No Status: Chronic - Initial Treatment Plan Initial Treatment Plan: Trazodone 300mg po qhs. Risperdal 4mg poqd. Zoloft 10mg po qhs
--- NOTE | 2017-07-06 09:21 | PN ---
S CIWA - CIWA Score Nausea/Vomitin Muscle Tremors: 3 Anxiety: 3 Agitation: 2 Paroxysmal Sweats: 1-Minimal Palms Moist Orientation: 0-Oriented Tacttile Disturbances: 1-Very Mild Itch/Numbness Auditory Disturbances: 1-Very Mild Visual Disturbances: 0-None Headache: 2-Mild CIWA-Ar Total Score: 16 BHS Progress Note (SOAP) Subjective: ALERT,IRRITABLE,ANXIOUS,INTERRUPTED SLEEP,TREMOR Objective: 07/06/17 09:20 Vital Signs Temperature 97.9 F 07/06/17 06:11 Pulse Rate 72 07/06/17 06:11 Respiratory Rate 18 07/06/17 06:11 Blood Pressure 127/77 07/06/17 06:11 O2 Sat by Pulse Oximetry (%) EKG NSR,NORMAL ECG Laboratory Last Values POC Glucometer 120 UNITS (80-120) 07/06/17 05:43 LABS PENDING Assessment: 07/06/17 09:21 WITHDRAWAL SYMPTOM Plan: CONTINUE DETOX,BGM MONITORING
--- NOTE | 2017-07-06 10:18 | PN ---
S CIWA - CIWA Score Nausea/Vomitin Muscle Tremors: 3 Anxiety: 3 Agitation: 2 Paroxysmal Sweats: 1-Minimal Palms Moist Orientation: 0-Oriented Tacttile Disturbances: 1-Very Mild Itch/Numbness Auditory Disturbances: 1-Very Mild Visual Disturbances: 0-None Headache: 2-Mild CIWA-Ar Total Score: 16 BHS Progress Note (SOAP) Subjective: ALERT,IRRITABLE,ANXIOUS,INTERRUPTED SLEEP,TREMOR Objective: 07/06/17 09:16 Vital Signs Temperature 97.9 F 07/06/17 06:11 Pulse Rate 72 07/06/17 06:11 Respiratory Rate 18 07/06/17 06:11 Blood Pressure 127/77 07/06/17 06:11 O2 Sat by Pulse Oximetry (%)
[2017-07-06 10:20] LABS: URINE APPEARANCE SLCLOUDY; URINE BILIRUBIN NEGATIVE (NEGATIVE); URINE BLOOD NEGATIVE (NEGATIVE); URINE COLOR YELLOW; URINE GLUCOSE (UA) NEGATIVE (NEGATIVE); URINE KETONE NEGATIVE (NEGATIVE); URINE NITRITE NEGATIVE (NEGATIVE); URINE PROTEIN NEGATIVE (NEGATIVE)
[2017-07-06 10:23] LABS: MEAN PLT VOLUME 9.6 fl (7.5-11.1); PLATELET COUNT 156 K/MM3 (134-434); RDW 13.7 % (11.6-15.6); WHITE BLOOD COUNT 3.1 K/mm3 (4.0-10.0)
[2017-07-06] MEDS: PRENATAL VITAMINS W/ FOLIC ACID TABLET (FP) PO SCH (10:24)
[2017-07-06] MEDS: risperiDONE 2 MG TABLET PO SCH (10:24)
[2017-07-06] MEDS: SERTRALINE HCL 50 MG TABLET (FP) PO SCH (10:24)
[2017-07-06] MEDS ORDERED: diazePAM 5 MG TABLET PO PRN (10:29)
--- NOTE | 2017-07-06 10:31 | PN ---
BHS Progress Note Note: PATIENT WOULD LIKE REGIMEN TO CHANGE FROM LIBRIUM TO VALIUM
[2017-07-06] MEDS ORDERED: diazePAM 5 MG TABLET PO ONE (10:38)
[2017-07-06] MEDS: IBUPROFEN 400 MG TABLET (FP) PO PRN (10:48)
[2017-07-06 10:54] LABS: ALBUMIN 3.4 g/dl (3.4-5.0); ANION GAP 9 (8-16); BILIRUBIN,TOTAL 0.4 mg/dL (0.2-1.0); CALCIUM 8.8 mg/dL (8.5-10.1); CO2 27 mmol/L (21-32); CREATININE 0.7 mg/dL (0.55-1.02); GLUCOSE,RANDOM 110 mg/dL (74-106); SGOT/AST 18 U/L (15-37); TOT PROT 8.1 g/dl (6.4-8.2)
[2017-07-06 10:55] LABS: ALK PHOS 66 U/L (45-117); SGPT/ALT 20 U/L (12-78)
--- NOTE | 2017-07-06 12:35 | EKG ---
Test Reason : Blood Pressure : / mmHG Vent. Rate : 082 BPM Atrial Rate : 082 BPM P-R Int : 162 ms QRS Dur : 090 ms QT Int : 406 ms P-R-T Axes : 058 029 052 degrees QTc Int : 474 ms NORMAL SINUS RHYTHM NORMAL ECG WHEN COMPARED WITH ECG OF 28-APR-2017 19:29, NO SIGNIFICANT CHANGE WAS FOUND Confirmed by BAL SLAUGHTER MD ([id number]) on 07/06/2017 12:34:53 PM Referred By: Confirmed By:BAL SLAUGHTER MD
[2017-07-06] MEDS: diazePAM 5 MG TABLET PO SCH ×2 (15:00→22:48)
[2017-07-06 16:55] LABS: URINE LEUK ESTERASE Negative (NEGATIVE)
[2017-07-06] MEDS ORDERED: chlordiazePOXIDE HCL 25 MG CAPSULE PO SCH (17:00)
[2017-07-06] MEDS: traZODone HCL 100 MG TABLET (FP) PO SCH (22:28)
[2017-07-06] MEDS: THIAMINE HCL 100 MG TABLET (FP) PO SCH (22:29)
[2017-07-07] MEDS: IBUPROFEN 400 MG TABLET (FP) PO PRN (04:01)
[2017-07-07] MEDS: diazePAM 5 MG TABLET PO SCH ×3 (05:14→23:07)
--- NOTE | 2017-07-07 10:14 | PN ---
BHS Progress Note (SOAP) Subjective: alert,irritable,anxious,interrupted sleep Objective: 07/07/17 10:12 Vital Signs Temperature 99 F 07/07/17 05:53 Pulse Rate 90 07/07/17 05:53 Respiratory Rate 20 07/07/17 05:53 Blood Pressure 118/79 07/07/17 05:53 O2 Sat by Pulse Oximetry (%) Laboratory Last Values WBC 3.1 K/mm3 (4.0-10.0) L 07/06/17 04:00 RBC 3.94 M/mm3 (3.60-5.2) 07/06/17 04:00 Hgb 12.6 GM/dL (10.7-15.3) 07/06/17 04:00 Hct 38.2 % (32.4-45.2) 07/06/17 04:00 MCV 97.0 fl (80-96) H 07/06/17 04:00 MCH 32.0 pg (25.7-33.7) 07/06/17 04:00 MCHC 33.0 g/dl (32.0-36.0) 07/06/17 04:00 RDW 13.7 % (11.6-15.6) 07/06/17 04:00 Plt Count 156 K/MM3 (134-434) 07/06/17 04:00 MPV 9.6 fl (7.5-11.1) 07/06/17 04:00 Sodium 141 mmol/L (136-145) 07/06/17 04:00 Potassium 4.1 mmol/L (3.5-5.1) 07/06/17 04:00 Chloride 105 mmol/L (98-107) 07/06/17 04:00 Carbon Dioxide 27 mmol/L (21-32) 07/06/17 04:00 Anion Gap 9 (8-16) 07/06/17 04:00 BUN 15 mg/dL (7-18) 07/06/17 04:00 Creatinine 0.7 mg/dL (0.55-1.02) 07/06/17 04:00 Creat Clearance w eGFR > 60 (>60) 07/06/17 04:00 POC Glucometer 156 UNITS (80-120) 07/07/17 05:16 Random Glucose 110 mg/dL (74-106) H D 07/06/17 04:00 Calcium 8.8 mg/dL (8.5-10.1) 07/06/17 04:00 Total Bilirubin 0.4 mg/dL (0.2-1.0) D 07/06/17 04:00 AST 18 U/L (15-37) 07/06/17 04:00 ALT 20 U/L (12-78) D 07/06/17 04:00 Alkaline Phosphatase 66 U/L (45-117) 07/06/17 04:00 Total Protein 8.1 g/dl (6.4-8.2) 07/06/17 04:00 Albumin 3.4 g/dl (3.4-5.0) 07/06/17 04:00 Urine Color Yellow 07/06/17 08:00 Urine Appearance Slcloudy 07/06/17 08:00 Urine pH 6.0 (5.0-8.0) 07/06/17 08:00 Ur Specific [place] 1.021 (1.001-1.035) 07/06/17 08:00 Urine Protein Negative (NEGATIVE) 07/06/17 08:00 Urine Glucose (UA) Negative (NEGATIVE) 07/06/17 08:00 Urine Ketones Negative (NEGATIVE) 07/06/17 08:00 Urine Blood Negative (NEGATIVE) 07/06/17 08:00 Urine Nitrite Negative (NEGATIVE) 07/06/17 08:00 Urine Bilirubin Negative (NEGATIVE) 07/06/17 08:00 Urine Urobilinogen 2.0 mg/dL (0.2-1.0) H 07/06/17 08:00 Ur Leukocyte Esterase Negative (NEGATIVE) 07/06/17 08:00 RPR Titer Nonreactive (NONREACTIVE) 07/06/17 04:00 Assessment: 07/07/17 10:13 withdrawal symptom Plan: continue detox,bgm monitoring
[2017-07-07] MEDS: risperiDONE 2 MG TABLET PO SCH (10:45)
[2017-07-07] MEDS: PRENATAL VITAMINS W/ FOLIC ACID TABLET (FP) PO SCH (10:45)
[2017-07-07] MEDS: SERTRALINE HCL 50 MG TABLET (FP) PO SCH (10:45)
[2017-07-07] MEDS ORDERED: chlordiazePOXIDE 5 MG CAPSULE PO SCH (17:00)
[2017-07-07] MEDS: traZODone HCL 100 MG TABLET (FP) PO SCH (23:07)
[2017-07-07] MEDS: THIAMINE HCL 100 MG TABLET (FP) PO SCH (23:07)
[2017-07-08] MEDS: IBUPROFEN 400 MG TABLET (FP) PO PRN (04:30)
[2017-07-08] MEDS: risperiDONE 2 MG TABLET PO SCH (10:34)
[2017-07-08] MEDS: PRENATAL VITAMINS W/ FOLIC ACID TABLET (FP) PO SCH (10:35)
[2017-07-08] MEDS: diazePAM 5 MG TABLET PO SCH ×2 (10:35→22:27)
[2017-07-08] MEDS: SERTRALINE HCL 50 MG TABLET (FP) PO SCH (10:35)
--- NOTE | 2017-07-08 14:34 | PN ---
BHS Progress Note (SOAP) Subjective: Sweating,interrupted sleep,restless Objective: 07/08/17 14:33 Vital Signs - 8 hr 07/08/17 07/08/17 10:00 14:05 Temperature 98.1 F 97.7 F Pulse Rate 104 H 109 H Respiratory 18 16 Rate Blood Pressure 102/69 100/67 Laboratory Tests 07/05/17 07/06/17 07/06/17 15:06 04:00 04:00 WBC 3.1 L RBC 3.94 Hgb 12.6 Hct 38.2 MCV 97.0 H MCH 32.0 MCHC 33.0 RDW 13.7 Plt Count 156 MPV 9.6 Sodium 141 Potassium 4.1 Chloride 105 Carbon Dioxide 27 Anion Gap 9 BUN 15 Creatinine 0.7 Creat Clearance w eGFR > 60 POC Glucometer 143 Random Glucose 110 H D Calcium 8.8 Total Bilirubin 0.4 D AST 18 ALT 20 D Alkaline Phosphatase 66 Total Protein 8.1 Albumin 3.4 Urine Color Urine Appearance Urine pH Ur Specific [place] Urine Protein Urine Glucose (UA) Urine Ketones Urine Blood Urine Nitrite Urine Bilirubin Urine Urobilinogen Ur Leukocyte Esterase RPR Titer 07/06/17 07/06/17 07/06/17 04:00 05:43 08:00 WBC RBC Hgb Hct MCV MCH MCHC RDW Plt Count MPV Sodium Potassium Chloride Carbon Dioxide Anion Gap BUN Creatinine Creat Clearance w eGFR POC Glucometer 120 Random Glucose Calcium Total Bilirubin AST ALT Alkaline Phosphatase Total Protein Albumin Urine Color Yellow Urine Appearance Slcloudy Urine pH 6.0 Ur Specific [place] 1.021 Urine Protein Negative Urine Glucose (UA) Negative Urine Ketones Negative Urine Blood Negative Urine Nitrite Negative Urine Bilirubin Negative Urine Urobilinogen 2.0 H Ur Leukocyte Esterase Negative RPR Titer Nonreactive 07/06/17 07/07/17 07/07/17 16:25 05:16 16:30 WBC RBC Hgb Hct MCV MCH MCHC RDW Plt Count MPV Sodium Potassium Chloride Carbon Dioxide Anion Gap BUN Creatinine Creat Clearance w eGFR POC Glucometer 106 156 166 Random Glucose Calcium Total Bilirubin AST ALT Alkaline Phosphatase Total Protein Albumin Urine Color Urine Appearance Urine pH Ur Specific [place] Urine Protein Urine Glucose (UA) Urine Ketones Urine Blood Urine Nitrite Urine Bilirubin Urine Urobilinogen Ur Leukocyte Esterase RPR Titer 07/08/17 05:59 WBC RBC Hgb Hct MCV MCH MCHC RDW Plt Count MPV Sodium Potassium Chloride Carbon Dioxide Anion Gap BUN Creatinine Creat Clearance w eGFR POC Glucometer 107 Random Glucose Calcium Total Bilirubin AST ALT Alkaline Phosphatase Total Protein Albumin Urine Color Urine Appearance Urine pH Ur Specific [place] Urine Protein Urine Glucose (UA) Urine Ketones Urine Blood Urine Nitrite Urine Bilirubin Urine Urobilinogen Ur Leukocyte Esterase RPR Titer labs noted Assessment: 07/08/17 14:33 withdrawal sx. Plan: Continue detox
[2017-07-08] MEDS ORDERED: chlordiazePOXIDE HCL 10 MG CAPSULE PO SCH (17:00)
[2017-07-08] MEDS: THIAMINE HCL 100 MG TABLET (FP) PO SCH (22:27)
[2017-07-08] MEDS: traZODone HCL 100 MG TABLET (FP) PO SCH (22:27)
[2017-07-09] MEDS: IBUPROFEN 400 MG TABLET (FP) PO PRN (03:05)
[2017-07-09] MEDS: risperiDONE 2 MG TABLET PO SCH (09:00)
[2017-07-09] MEDS: PRENATAL VITAMINS W/ FOLIC ACID TABLET (FP) PO SCH (09:00)
[2017-07-09] MEDS: SERTRALINE HCL 50 MG TABLET (FP) PO SCH (09:00)
[2017-07-09 09:25] VITALS: BP 112/78; PULSE 94; TEMP 97.3
[2017-07-09] MEDS ORDERED: diazePAM 5 MG TABLET PO SCH (10:00)
--- NOTE | 2017-07-09 11:46 | DS ---
[facility] Detox Discharge Summary Admission Date: 07/05/17 Discharge Date: 07/09/17 - History Present History: Alcohol Dependence, Cocaine Dependence Pertinent Past History: insomnia - Physical Exam Results Vital Signs: Vital Signs Temperature 97.3 F L 07/09/17 09:25 Pulse Rate 94 H 07/09/17 09:25 Respiratory Rate 18 07/09/17 09:25 Blood Pressure 112/78 07/09/17 09:25 O2 Sat by Pulse Oximetry (%) Pertinent Admission Physical Exam Findings: diet controlled type II DM Laboratory Last Values WBC 3.1 K/mm3 (4.0-10.0) L 07/06/17 04:00 RBC 3.94 M/mm3 (3.60-5.2) 07/06/17 04:00 Hgb 12.6 GM/dL (10.7-15.3) 07/06/17 04:00 Hct 38.2 % (32.4-45.2) 07/06/17 04:00 MCV 97.0 fl (80-96) H 07/06/17 04:00 MCH 32.0 pg (25.7-33.7) 07/06/17 04:00 MCHC 33.0 g/dl (32.0-36.0) 07/06/17 04:00 RDW 13.7 % (11.6-15.6) 07/06/17 04:00 Plt Count 156 K/MM3 (134-434) 07/06/17 04:00 MPV 9.6 fl (7.5-11.1) 07/06/17 04:00 Sodium 141 mmol/L (136-145) 07/06/17 04:00 Potassium 4.1 mmol/L (3.5-5.1) 07/06/17 04:00 Chloride 105 mmol/L (98-107) 07/06/17 04:00 Carbon Dioxide 27 mmol/L (21-32) 07/06/17 04:00 Anion Gap 9 (8-16) 07/06/17 04:00 BUN 15 mg/dL (7-18) 07/06/17 04:00 Creatinine 0.7 mg/dL (0.55-1.02) 07/06/17 04:00 Creat Clearance w eGFR > 60 (>60) 07/06/17 04:00 POC Glucometer 107 UNITS (80-120) 07/09/17 05:31 Random Glucose 110 mg/dL (74-106) H D 07/06/17 04:00 Calcium 8.8 mg/dL (8.5-10.1) 07/06/17 04:00 Total Bilirubin 0.4 mg/dL (0.2-1.0) D 07/06/17 04:00 AST 18 U/L (15-37) 07/06/17 04:00 ALT 20 U/L (12-78) D 07/06/17 04:00 Alkaline Phosphatase 66 U/L (45-117) 07/06/17 04:00 Total Protein 8.1 g/dl (6.4-8.2) 07/06/17 04:00 Albumin 3.4 g/dl (3.4-5.0) 07/06/17 04:00 Urine Color Yellow 07/06/17 08:00 Urine Appearance Slcloudy 07/06/17 08:00 Urine pH 6.0 (5.0-8.0) 07/06/17 08:00 Ur Specific [place] 1.021 (1.001-1.035) 07/06/17 08:00 Urine Protein Negative (NEGATIVE) 07/06/17 08:00 Urine Glucose (UA) Negative (NEGATIVE) 07/06/17 08:00 Urine Ketones Negative (NEGATIVE) 07/06/17 08:00 Urine Blood Negative (NEGATIVE) 07/06/17 08:00 Urine Nitrite Negative (NEGATIVE) 07/06/17 08:00 Urine Bilirubin Negative (NEGATIVE) 07/06/17 08:00 Urine Urobilinogen 2.0 mg/dL (0.2-1.0) H 07/06/17 08:00 Ur Leukocyte Esterase Negative (NEGATIVE) 07/06/17 08:00 RPR Titer Nonreactive (NONREACTIVE) 07/06/17 04:00 labs noted - Treatment Hospital Course: Detox Protocol Followed, Detoxed Safely, Responded well, Discharged Condition Good, Rehab Referral Accepted Patient has Accepted a Rehab Referral to: [facility], 2nd choice [facility] - Medication Discharge Medications: Ambulatory Orders Risperidone [Risperdal -] 4 mg PO DAILY #30 tablet 07/06/17 Sertraline HCl [Zoloft -] 50 mg PO DAILY #30 tablet 07/06/17 Trazodone HCl 300 mg PO HS #30 tablet 07/06/17 - Diagnosis (1) Alcohol dependence with uncomplicated withdrawal Current Visit: Yes Status: Chronic (2) Cocaine dependence Current Visit: Yes Status: Chronic Qualifiers: Substance use status: uncomplicated Qualified Code(s): F14.20 - Cocaine dependence, uncomplicated (3) Insomnia Current Visit: No Status: Chronic (4) Substance induced mood disorder Current Visit: No Status: Chronic
[2017-07-10] MEDS ORDERED: diazePAM 5 MG TABLET PO SCH (10:00)
== END 2017-07-09 09:05 | disposition home or self-care (01) | DRG 774 ==
LOC: YASAS 11:18 → Y6N 15:26
PROVIDERS: ADMIT Internal Medicine; ATTEND Internal Medicine
PROC: HZ2ZZZZ Detoxification Services for Substance Abuse Treatment (ICD-10-PCS; principal; 2017-07-05)
DX: F10.230 Alcohol dependence with withdrawal, uncomplicated (principal); F14.20 Cocaine dependence, uncomplicated; F19.24 Other psychoactive substance dependence with psychoactive substance-induced mood disorder; G47.00 Insomnia, unspecified; F31.9 Bipolar disorder, unspecified; E11.9 Type 2 diabetes mellitus without complications; R63.4 Abnormal weight loss; Z68.21 Body mass index [BMI] 21.0-21.9, adult
CPT/HCPCS: 36415; 80053; 81003; 85027; 86593; 93005; 93010

== ENCOUNTER 2017-08-16 12:47 | Inpatient (IN) | payer OTHER ==
[2017-08-16 14:02] VITALS: BMI 22.1
[2017-08-16] MEDS ORDERED: hydrOXYzine PAMOATE 50 MG CAPSULE (FP) PO PRN (16:34)
[2017-08-16] MEDS ORDERED: MENTHOL/PHENOL 1 EACH UD MM PRN (16:34)
[2017-08-16] MEDS ORDERED: P-EPHED 60MG/TRIPROLIDI 2.5MG TABLET PO PRN (16:34)
[2017-08-16] MEDS ORDERED: MAGNESIUM CITRATE 300 ML BOTTLE PO PRN (16:34)
[2017-08-16] MEDS ORDERED: NICOTINE POLACRILEX 2 MG GUM BUC PRN (16:34)
[2017-08-16] MEDS ORDERED: ACETAMINOPHEN 325 MG TABLET (FP) PO PRN (16:34)
[2017-08-16] MEDS ORDERED: guaiFENesin/D-METHORPHAN HB 10 ML UNIT-DOSE CUPS PO PRN (16:34)
[2017-08-16] MEDS ORDERED: MAGNESIUM HYDROX 2400MG/30ML ORAL SUSPENSION 30 ML CUP PO PRN (16:34)
[2017-08-16] MEDS ORDERED: LOPERAMIDE HCL 2 MG CAPSULE PO PRN (16:34)
[2017-08-16] MEDS ORDERED: MAG HYDROX/AL HYDROX/SIMETH 30 ML UNIT-DOSE CUP PO PRN (16:34)
--- NOTE | 2017-08-16 16:43 | HP ---
CIWA Score - CIWA Score Nausea/Vomitin Muscle Tremors: 3 Anxiety: 3 Agitation: 3 Paroxysmal Sweats: 3 Orientation: 0-Oriented Tacttile Disturbances: 1-Very Mild Itch/Numbness Auditory Disturbances: 0-None Visual Disturbances: 0-None Headache: 1-Very Mild CIWA-Ar Total Score: 17 Admission [facility] Chief Complaint: alcohol withdrawal sx Allergies/Adverse Reactions: Allergies Allergy/AdvReac Type Severity Reaction Status Date / Time erythromycin base Allergy Severe Hives Verified 08/16/17 15:28 tomato Allergy Severe Hives Verified 08/16/17 15:28 History of Present Illness: 51 yo f with h/o chronic alcoholism, crack cocaine and nicotine dependence readmitted for inpatient detoxification from alcohol. Reports alcohol withdrawal sx when she does nto drink. denies seizures, dts. no si or suicide attempts in past. PMHX bipolar do onmeds Exam Limitations: No Limitations - Ebola screening Have you traveled outside of the country in the last 21 days: No (N) Have you had contact with anyone from an Ebola affected area: No Have you been sick,other than usual withdrawal symptoms: No Do you have a fever: No - Review of Systems Constitutional: Chills, Diaphoresis, Night Sweats, Changes in sleep, Unintentional Wgt. Loss EENT: reports: No Symptoms Reported Respiratory: reports: No Symptoms reported Cardiac: reports: No Symptoms Reported GI: reports: Diarrhea, Nausea, Poor Fluid Intake, Vomiting, Abdominal cramping : reports: No Symptoms Reported Musculoskeletal: reports: No Symptoms Reported Integumentary: reports: Flushing, Sweating Neuro: reports: Headache, Numbness, Tingling, Tremors Endocrine: reports: Flushing, Increased Thirst Hematology: reports: No Symptoms Reported Psychiatric: reports: Judgement Intact, Mood/Affect Appropiate, Orientated x3, Anxious, Depressed Other Systems: Reviewed and Negative Patient History - Patient Medical History Hx Anemia: No Hx Asthma: No Hx Chronic Obstructive Pulmonary Disease (COPD): No Hx Cancer: No Hx Cardiac Disorders: No Hx Congestive Heart Failure: No Hx Hypertension: No Hx Hypercholesterolemia: No Hx Pacemaker: No HX Cerebrovascular Accident: No Hx Seizures: No Hx Diabetes: Yes (pt report her took her off metformin) Hx Gastrointestinal Disorders: No Hx Liver Disease: No Hx Genitourinary Disorders: No Hx Sexually Transmitted Disorders: No Hx Renal Disease (ESRD): No Hx Thyroid Disease: No Hx Human Immunodeficiency Virus (HIV): No (07/07 negative) Hx Hepatitis C: No Hx Depression: No Hx Suicide Attempt: No Hx Bipolar Disorder: Yes (on meds) Hx Schizophrenia: No - Patient Surgical History Past Surgical History: Yes Hx Neurologic Surgery: No Hx Cataract Extraction: No Hx Cardiac Surgery: No Hx Lung Surgery: No Hx Breast Surgery: No Hx Breast Biopsy: No Hx Abdominal Surgery: No Hx Appendectomy: No Hx Cholecystectomy: No Hx Genitourinary Surgery: No Hx Section: No Hx Orthopedic Surgery: No Hx Hysterectomy: No Other Surgical History: 1997 RIGHT OVERY REMOVED Anesthesia Reaction: No - PPD History Previous Implant?: Yes Documented Results: Negative w/proof Implanted On Prior [facility] Admission?: Yes Date: 04/30/17 Results: 0.0 mm PPD to be Administered?: No - Reproductive History Patient is a Female of Child Bearing Age (11 -55 yrs old): Yes Last Menstrual Period: 08/29/07 Patient : No (last menstrual period was in 2007) - Smoking Cessation Smoking history: Current every day smoker Have you smoked in the past 12 months: Yes Aproximately how many cigarettes per day: 5 Cigars Per Day: 0 Hx Chewing Tobacco Use: No Initiated information on smoking cessation: Yes 'Breaking Loose' booklet given: 08/16/17 - Substance & Tx. History Hx Alcohol Use: Yes Hx Substance Use: Yes Substance Use Type: Alcohol, Cocaine Hx Substance Use Treatment: Yes ([facility]) - Substances Abused Alcohol Route: Oral Frequency: Daily Amount used: 6-packs of beer and Vodka 1 pint Age of first use: 27 Date of Last Use: 08/16/17 Cocaine Route: Smoking Frequency: Daily Amount used: $ 200 Age of first use: 27 Date of Last Use: 08/16/17 Family Disease History - Family Disease History Family Disease History: CA: Mother (), Other: Father ( KILLED), Mother Admission Physical Exam S - Vital Signs Vital Signs: Vital Signs - 24 hr 08/16/17 14:01 Temperature 97.4 F L Pulse Rate 88 Respiratory 16 Rate Blood Pressure 131/87 - Physical General Appearance: Yes: Nourished, Appropriately Dressed, Disheveled, Mild Distress, Thin, Tremorous, Irritable, Sweating, Anxious HEENTM: Yes: Within Normal Limits, EOMI, Hearing grossly Normal, Normal ENT Inspection, Normocephalic, Normal Voice, JENNIFER, Pharynx Normal Respiratory: Yes: Within Normal Limits, Chest Non-Tender, Lungs Clear, Normal Breath Sounds, No Respiratory Distress, No Accessory Muscle Use Neck: Yes: Within Normal Limits, No masses,lesions,Nodules, Supple, Trachea in good position Breast: Yes: Breast Exam Deferred Cardiology: Yes: Within Normal Limits, Regular Rhythm, Regular Rate, S1, S2 Abdominal: Yes: Within Normal Limits, Normal Bowel Sounds, Non Tender, Flat, Soft Genitourinary: Yes: Within Normal Limits Back: Yes: Within Normal Limits, Normal Inspection Musculoskeletal: Yes: Within Normal Limits, full range of Motion, Gait Steady, Pelvis Stable Extremities: Yes: Normal Capillary Refill, Normal Range of Motion, Non-Tender, Tremors Neurological: Yes: mastic floor layer II-XII NML intact, Fully Oriented, Alert, Motor Strength 5/5, Normal Response, Depressed Affect Integumentary: Yes: Normal Color, Warm, Diaphoresis, Moist Lymphatic: Yes: Within Normal Limits - Addiitonal Findings: withdrawal sx - Diagnostic (1) Bipolar disorder Current Visit: No Status: Acute (2) Alcohol dependence with uncomplicated withdrawal Current Visit: No Status: Chronic (3) Cocaine dependence Current Visit: No Status: Chronic Qualifiers: (4) Nicotine dependence Current Visit: No Status: Chronic Qualifiers: (5) Substance induced mood disorder Current Visit: No Status: Chronic Cleared for Admission [facility] - Detox or Rehab [facility] Level of Care: Medically Managed Detox Regimen/Protocol: Librium [facility] Breath Alcohol Content Breath Alcohol Content: 0 Urine Pregancy Test - Result Urine Test Results: Negative- NO Line Present Urine Drug Screen - Results Drug Screen Negative: No Urine Drug Screen Results: CLARISSA-Cocaine
[2017-08-16 18:56] LABS: URINE APPEARANCE SLCLOUDY; URINE BILIRUBIN NEGATIVE (NEGATIVE); URINE BLOOD NEGATIVE (NEGATIVE); URINE COLOR YELLOW; URINE GLUCOSE (UA) NEGATIVE (NEGATIVE); URINE KETONE NEGATIVE (NEGATIVE); URINE NITRITE NEGATIVE (NEGATIVE); URINE PROTEIN NEGATIVE (NEGATIVE); URINE UROBILINOGEN 4.0 E.U/dl mg/dL (0.2-1.0)
[2017-08-16 19:22] LABS: URINE LEUK ESTERASE 2+ (NEGATIVE)
[2017-08-16] MEDS: chlordiazePOXIDE HCL 25 MG CAPSULE PO PRN (19:35)
[2017-08-16] MEDS: IBUPROFEN 400 MG TABLET (FP) PO PRN (19:35)
[2017-08-16 22:00] LABS: URINE LEUK ESTERASE 1+ (NEGATIVE)
[2017-08-16 22:42] LABS: URINE MUCUS RARE; URINE RBC 3 /hpf (0-3); URINE WBC 6 /hpf (3-5)
[2017-08-16] MEDS: chlordiazePOXIDE HCL 25 MG CAPSULE PO SCH (23:38)
[2017-08-16] MEDS: THIAMINE HCL 100 MG TABLET (FP) PO SCH (23:39)
[2017-08-17] MEDS: chlordiazePOXIDE HCL 25 MG CAPSULE PO SCH ×4 (05:26→22:58)
[2017-08-17 09:57] LABS: MCH 31.6 pg (25.7-33.7); MCHC 32.3 g/dl (32.0-36.0); MEAN PLT VOLUME 9.8 fl (7.5-11.1); PLATELET COUNT 147 K/MM3 (134-434); RDW 13.4 % (11.6-15.6); WHITE BLOOD COUNT 2.5 K/mm3 (4.0-10.0)
[2017-08-17] MEDS ORDERED: DIVALPROEX NA *ER* EXTEND REL 500 MG TABLET.SA (FP) PO SCH (10:00)
[2017-08-17 10:18] LABS: ALBUMIN 3.2 g/dl (3.4-5.0); ALK PHOS 70 U/L (45-117); ANION GAP 8 (8-16); BILIRUBIN,TOTAL 0.3 mg/dL (0.2-1.0); CALCIUM 9.2 mg/dL (8.5-10.1); CO2 24 mmol/L (21-32); CREATININE 0.8 mg/dL (0.55-1.02); GLUCOSE,RANDOM 144 mg/dL (74-106); SGOT/AST 15 U/L (15-37); SGPT/ALT 18 U/L (12-78)
--- NOTE | 2017-08-17 10:47 | CONSULT ---
[facility] Psychiatric Consult - Data Date of interview: 08/17/17 Admission source: [facility] Identifying data: Pt. is a 51 year old female, , mother of ten, and on SSI. Pt. has been admitted to [facility] multiple times. Pt. admitted to for alcohol and cocaine dependence. Substance Abuse History: Following information confirmed by Mrs. Burnette: Smoking Cessation. Smoking history: Current every day smoker. Have you smoked in the past 12 months: Yes. Aproximately how many cigarettes per day: 5. Hx Alcohol Use: Yes. Hx Substance Use: Yes. Substance Use Type: Alcohol, Cocaine. Hx Substance Use Treatment: Yes ([facility] detox). Alcohol- Route : Oral Frequency: Daily. Amount used: 6-packs of beer and Vodka 1 pint. Age of first use: 27 Date of Last Use: 08/16/17. Cocaine- Route: Smoking Frequency: Daily. Amount used: $ 200 Age of first use: 27. Date of Last Use: 08/16/17 Medical History: Diabetes Psychiatric History: Pt. reports multiple psychiatric hospitalizations from 1997 -present. States her most recent psychiatric hospitalization was in 2017 at [facility]. States she was hospitalized for 2 weeks and has a diagnosis of Bipolar disorder. Claims she has been seeing an outpatient psychiatrist for 3 months by the name of Dr. Madden at [facility]. As per pharmacy claims patient has had prescriptions ordered for depakote, trazodone, risperdal, and zoloft. Depakote level result this morning was <3.000. Pt irritable and agitated towards senior technical writer. Requesting specific dosages and not accepting feedback. Pt. states she last took risperdal , depakote and trazodone three days ago. Pt. denies h/o suicide attempt. Pt. denies suicidal and homicidial ideation. Physical/Sexual Abuse/Trauma History: Denies. Mental Status Exam - Mental Status Exam Alert and Oriented to: Time, Place, Person Cognitive Function: Fair Patient Appearance: Unkempt Mood: Irritable (Pt. cooperative at first and quickly became irritable when discussing the dosages she wanted while in the hospital. ) Affect: Mood Congruent Patient Behavior: Uncooperative Speech Pattern: Pressured Voice Loudness: Mildly Loud Thought Process: Goal Oriented Thought Disorder: Not Present Hallucinations: Denies Suicidal Ideation: Denies Homicidal Ideation: Denies Insight/Judgement: Poor Sleep: Poorly Appetite: Poor Muscle strength/Tone: Normal Gait/Station: Normal Psychiatric Findings - Problem List ([place] 1, 2,3) (1) Alcohol dependence Current Visit: Yes Status: Acute (2) Alcohol dependence with uncomplicated withdrawal Current Visit: Yes Status: Acute (3) Bipolar disorder Current Visit: Yes Status: Chronic (4) Cocaine dependence Current Visit: Yes Status: Chronic Qualifiers: (5) Insomnia Current Visit: Yes Status: Acute (6) Substance induced mood disorder Current Visit: Yes Status: Chronic (7) Nicotine dependence Current Visit: Yes Status: Chronic Qualifiers: - Initial Treatment Plan Initial Treatment Plan: Psychoeducation provided.Detox in progress. Chart and pharmacy claims reviewed. Medications to be resumed/restated. Depakote 500mg BID , Risperdal 2mg BID and trazodone 100mg qhs. Benefits and side effects discussed. Verbal consent given. Pt. agreeable with plan.
[2017-08-17] MEDS: NICOTINE 14 MG/24 HOURS TOPICAL PATCH TD SCH (10:49)
[2017-08-17] MEDS: PRENATAL VITAMINS W/ FOLIC ACID TABLET (FP) PO SCH (10:49)
[2017-08-17] MEDS: DIVALPROEX SODIUM 500 MG TABLET E.C. PO SCH ×2 (10:51→22:57)
[2017-08-17] MEDS: risperiDONE 2 MG TABLET PO SCH ×2 (10:51→22:57)
--- NOTE | 2017-08-17 13:11 | EKG ---
Test Reason : Blood Pressure : / mmHG Vent. Rate : 077 BPM Atrial Rate : 077 BPM P-R Int : 160 ms QRS Dur : 094 ms QT Int : 394 ms P-R-T Axes : 059 013 043 degrees QTc Int : 445 ms NORMAL SINUS RHYTHM NORMAL ECG WHEN COMPARED WITH ECG OF 16-AUG-2017 17:58, NO SIGNIFICANT CHANGE WAS FOUND Confirmed by BAL SLAUGHTER MD ([id number]) on 08/17/2017 1:11:06 PM Referred By: Confirmed By:BAL SLAUGHTER MD
--- NOTE | 2017-08-17 13:13 | EKG ---
Test Reason : Blood Pressure : / mmHG Vent. Rate : 073 BPM Atrial Rate : 073 BPM P-R Int : 160 ms QRS Dur : 094 ms QT Int : 418 ms P-R-T Axes : 058 006 039 degrees QTc Int : 460 ms NORMAL SINUS RHYTHM WITH SINUS ARRHYTHMIA POSSIBLE LEFT ATRIAL ENLARGEMENT BORDERLINE ECG WHEN COMPARED WITH ECG OF 05-JUL-2017 17:22, NO SIGNIFICANT CHANGE WAS FOUND Confirmed by BAL SLAUGHTER MD ([id number]) on 08/17/2017 1:12:28 PM Referred By: Juan MARIE Confirmed By:BAL SLAUGHTER MD
--- NOTE | 2017-08-17 17:26 | PN ---
S CIWA - CIWA Score Nausea/Vomitin-Mild Nausea/No Vomiting Muscle Tremors: 4-Moderate,w/Arms Extend Anxiety: 4-Mod. Anxious/Guarded Agitation: 4-Moderately Restless Paroxysmal Sweats: 3 Orientation: 0-Oriented Tacttile Disturbances: 1-Very Mild Itch/Numbness Auditory Disturbances: 0-None Visual Disturbances: 0-None Headache: 1-Very Mild CIWA-Ar Total Score: 18 S Progress Note (SOAP) Subjective: Irritable, sweating, chills, agitated Objective: 08/17/17 17:23 Last Vital Signs Temp Pulse Resp BP Pulse Ox 98.2 F 77 18 110/67 08/17/17 15:30 08/17/17 15:30 08/17/17 15:30 08/17/17 15:30 Laboratory Tests 08/16/17 08/16/17 08/17/17 15:45 18:15 05:29 WBC RBC Hgb Hct MCV MCH MCHC RDW Plt Count MPV Sodium Potassium Chloride Carbon Dioxide Anion Gap BUN Creatinine Creat Clearance w eGFR POC Glucometer 137 121 Random Glucose Calcium Total Bilirubin AST ALT Alkaline Phosphatase Total Protein Albumin Urine Color Yellow Urine Appearance Slcloudy Urine pH 5.0 Ur Specific [place] 1.024 Urine Protein Negative Urine Glucose (UA) Negative Urine Ketones Negative Urine Blood Negative Urine Nitrite Negative Urine Bilirubin Negative Urine Urobilinogen 4.0 e.u/dl H Ur Leukocyte Esterase 1+ H Urine WBC (Auto) 6 Urine RBC (Auto) 3 Ur Epithelial Cells Moderate Urine Mucus Rare Valproic Acid RPR Titer 08/17/17 08/17/17 08/17/17 07:30 07:30 07:30 WBC 2.5 L RBC 4.25 Hgb 13.4 Hct 41.6 MCV 98.0 H MCH 31.6 MCHC 32.3 RDW 13.4 Plt Count 147 MPV 9.8 Sodium 142 Potassium 3.8 Chloride 110 H Carbon Dioxide 24 Anion Gap 8 BUN 17 Creatinine 0.8 Creat Clearance w eGFR > 60 POC Glucometer Random Glucose 144 H D Calcium 9.2 Total Bilirubin 0.3 D AST 15 ALT 18 Alkaline Phosphatase 70 Total Protein 8.0 Albumin 3.2 L Urine Color Urine Appearance Urine pH Ur Specific [place] Urine Protein Urine Glucose (UA) Urine Ketones Urine Blood Urine Nitrite Urine Bilirubin Urine Urobilinogen Ur Leukocyte Esterase Urine WBC (Auto) Urine RBC (Auto) Ur Epithelial Cells Urine Mucus Valproic Acid RPR Titer Nonreactive 08/17/17 08:00 WBC RBC Hgb Hct MCV MCH MCHC RDW Plt Count MPV Sodium Potassium Chloride Carbon Dioxide Anion Gap BUN Creatinine Creat Clearance w eGFR POC Glucometer Random Glucose Calcium Total Bilirubin AST ALT Alkaline Phosphatase Total Protein Albumin Urine Color Urine Appearance Urine pH Ur Specific [place] Urine Protein Urine Glucose (UA) Urine Ketones Urine Blood Urine Nitrite Urine Bilirubin Urine Urobilinogen Ur Leukocyte Esterase Urine WBC (Auto) Urine RBC (Auto) Ur Epithelial Cells Urine Mucus Valproic Acid < 3.000 L RPR Titer Labs noted: hyperglycemia Assessment: 08/17/17 17:23 Withdrawal symptoms Noted with hyperglycemia r/t DMT2 Plan: Continue detox Hyperglycemia secondary to DMT2: start finger stick glucose ac meal with insulin sliding scale, change ensure to glucerna, start metformin 500mg PO bid, encourage adherence to diabetic diet, follow up with PCP post discharge for management
[2017-08-17] MEDS: metFORMIN HCL 500 MG TABLET (FP) PO SCH (18:06)
[2017-08-17] MEDS: chlordiazePOXIDE HCL 25 MG CAPSULE PO PRN (18:07)
[2017-08-17] MEDS: INSULIN SLIDING SCALE (NOVOLOG) 1 VIAL SQ SCH (18:53)
[2017-08-17] MEDS ORDERED: traZODone HCL 100 MG TABLET (FP) PO SCH (22:00)
[2017-08-17] MEDS ORDERED: traZODone HCL 50 MG TABLET (FP) PO SCH (22:00)
[2017-08-18] MEDS: THIAMINE HCL 100 MG TABLET (FP) PO SCH (00:08)
[2017-08-18] MEDS: chlordiazePOXIDE HCL 25 MG CAPSULE PO SCH ×2 (06:23→11:24)
[2017-08-18] MEDS: metFORMIN HCL 500 MG TABLET (FP) PO SCH (06:24)
[2017-08-18] MEDS: IBUPROFEN 400 MG TABLET (FP) PO PRN (06:29)
[2017-08-18] MEDS: INSULIN SLIDING SCALE (NOVOLOG) 1 VIAL SQ SCH ×2 (07:03→11:24)
[2017-08-18 10:50] VITALS: BP 122/80; PULSE 90; TEMP 97
[2017-08-18] MEDS: risperiDONE 2 MG TABLET PO SCH (11:20)
[2017-08-18] MEDS: NICOTINE 14 MG/24 HOURS TOPICAL PATCH TD SCH (11:20)
[2017-08-18] MEDS: DIVALPROEX SODIUM 500 MG TABLET E.C. PO SCH (11:20)
[2017-08-18] MEDS: PRENATAL VITAMINS W/ FOLIC ACID TABLET (FP) PO SCH (11:20)
--- NOTE | 2017-08-18 16:51 | DS ---
[facility] Detox Discharge Summary Admission Date: 08/16/17 Discharge Date: 08/18/17 - History Present History: Alcohol Dependence, Cocaine Dependence Additional Comments: Patient left AMA despite encouragement from staff to stay and complete her detox. Patient aware of possible withdrawal symptoms and possible from withdrawing. Pertinent Past History: DMT2 with hyperglycemia - Physical Exam Results Vital Signs: Vital Signs Temperature 97 F L 08/18/17 10:00 Pulse Rate 90 08/18/17 10:00 Respiratory Rate 16 08/18/17 10:00 Blood Pressure 122/80 08/18/17 10:00 O2 Sat by Pulse Oximetry (%) Pertinent Admission Physical Exam Findings: Withdrawal symptoms Laboratory Tests 08/16/17 08/16/17 08/17/17 15:45 18:15 05:29 WBC RBC Hgb Hct MCV MCH MCHC RDW Plt Count MPV Sodium Potassium Chloride Carbon Dioxide Anion Gap BUN Creatinine Creat Clearance w eGFR POC Glucometer 137 121 Random Glucose Calcium Total Bilirubin AST ALT Alkaline Phosphatase Total Protein Albumin Urine Color Yellow Urine Appearance Slcloudy Urine pH 5.0 Ur Specific [place] 1.024 Urine Protein Negative Urine Glucose (UA) Negative Urine Ketones Negative Urine Blood Negative Urine Nitrite Negative Urine Bilirubin Negative Urine Urobilinogen 4.0 e.u/dl H Ur Leukocyte Esterase 1+ H Urine WBC (Auto) 6 Urine RBC (Auto) 3 Ur Epithelial Cells Moderate Urine Mucus Rare Valproic Acid RPR Titer 08/17/17 08/17/17 08/17/17 07:30 07:30 07:30 WBC 2.5 L RBC 4.25 Hgb 13.4 Hct 41.6 MCV 98.0 H MCH 31.6 MCHC 32.3 RDW 13.4 Plt Count 147 MPV 9.8 Sodium 142 Potassium 3.8 Chloride 110 H Carbon Dioxide 24 Anion Gap 8 BUN 17 Creatinine 0.8 Creat Clearance w eGFR > 60 POC Glucometer Random Glucose 144 H D Calcium 9.2 Total Bilirubin 0.3 D AST 15 ALT 18 Alkaline Phosphatase 70 Total Protein 8.0 Albumin 3.2 L Urine Color Urine Appearance Urine pH Ur Specific [place] Urine Protein Urine Glucose (UA) Urine Ketones Urine Blood Urine Nitrite Urine Bilirubin Urine Urobilinogen Ur Leukocyte Esterase Urine WBC (Auto) Urine RBC (Auto) Ur Epithelial Cells Urine Mucus Valproic Acid RPR Titer Nonreactive 08/17/17 08/17/17 08/18/17 08:00 16:40 06:24 WBC RBC Hgb Hct MCV MCH MCHC RDW Plt Count MPV Sodium Potassium Chloride Carbon Dioxide Anion Gap BUN Creatinine Creat Clearance w eGFR POC Glucometer 119 115 Random Glucose Calcium Total Bilirubin AST ALT Alkaline Phosphatase Total Protein Albumin Urine Color Urine Appearance Urine pH Ur Specific [place] Urine Protein Urine Glucose (UA) Urine Ketones Urine Blood Urine Nitrite Urine Bilirubin Urine Urobilinogen Ur Leukocyte Esterase Urine WBC (Auto) Urine RBC (Auto) Ur Epithelial Cells Urine Mucus Valproic Acid < 3.000 L RPR Titer 08/18/17 11:23 WBC RBC Hgb Hct MCV MCH MCHC RDW Plt Count MPV Sodium Potassium Chloride Carbon Dioxide Anion Gap BUN Creatinine Creat Clearance w eGFR POC Glucometer 104 Random Glucose Calcium Total Bilirubin AST ALT Alkaline Phosphatase Total Protein Albumin Urine Color Urine Appearance Urine pH Ur Specific [place] Urine Protein Urine Glucose (UA) Urine Ketones Urine Blood Urine Nitrite Urine Bilirubin Urine Urobilinogen Ur Leukocyte Esterase Urine WBC (Auto) Urine RBC (Auto) Ur Epithelial Cells Urine Mucus Valproic Acid RPR Titer Labs noted - Medication Discharge Medications: Ambulatory Orders Trazodone HCl 300 mg PO HS #30 tablet 07/06/17 Divalproex [Depakote -] 1,000 mg PO HS 08/16/17 Divalproex [Depakote -] 500 mg PO DAILY 08/16/17 - Diagnosis (1) Type 2 diabetes mellitus with hyperglycemia Status: Chronic (2) Alcohol dependence with uncomplicated withdrawal Status: Acute (3) Cocaine dependence Status: Chronic Qualifiers: (4) Bipolar disorder Status: Chronic (5) Nicotine dependence Status: Chronic Qualifiers: (6) Substance induced mood disorder Status: Chronic - AMA Did Patient Leave Against Medical Advice: Yes (F/U with PCP within 3 days)
[2017-08-18] MEDS ORDERED: chlordiazePOXIDE 5 MG CAPSULE PO SCH (23:00)
[2017-08-19] MEDS ORDERED: chlordiazePOXIDE HCL 10 MG CAPSULE PO SCH (23:00)
== END 2017-08-18 13:50 | disposition left against medical advice (07) | DRG 770 ==
LOC: YASAS 12:47 → Y6N 16:04
PROVIDERS: ADMIT Internal Medicine; ATTEND Internal Medicine
PROC: HZ2ZZZZ Detoxification Services for Substance Abuse Treatment (ICD-10-PCS; principal; 2017-08-16)
DX: F10.230 Alcohol dependence with withdrawal, uncomplicated (principal); F14.20 Cocaine dependence, uncomplicated; F17.210 Nicotine dependence, cigarettes, uncomplicated; F31.9 Bipolar disorder, unspecified; F19.24 Other psychoactive substance dependence with psychoactive substance-induced mood disorder; E11.65 Type 2 diabetes mellitus with hyperglycemia; G47.00 Insomnia, unspecified; Z88.1 Allergy status to other antibiotic agents; Z91.018 Allergy to other foods; Z79.84 Long term (current) use of oral hypoglycemic drugs
CPT/HCPCS: 36415; 80053; 80164; 81003; 81015; 85027; 86593; 93005; 93010

== ENCOUNTER 2018-10-30 11:02 | Inpatient (IN) | payer OTHER ==
[2018-10-30 14:01] VITALS: BMI 22.8
--- NOTE | 2018-10-30 14:11 | HP ---
CIWA Score Nausea/Vomitin-No Nausea/No Vomiting Muscle Tremors: 3 Anxiety: 0-No Anxiety, at Ease Agitation: 4-Moderately Restless Paroxysmal Sweats: 2 Orientation: 0-Oriented Tacttile Disturbances: 0-None Auditory Disturbances: 1-Very Mild Visual Disturbances: 2-Mild Sensitivity Headache: 0-None Present CIWA-Ar Total Score: 12 - Admission Criteria [facility] Guidelines: Admission for Medically Managed Detox: Requires at least one of the followin. CIWA greater than 12 2. Seizures within the past 24 hours 3. Delirium tremens within the past 24 hours 4. Hallucinations within the past 24 hours 5. Acute intervention needed for co occurring medical disorder 6. Acute intervention needed for co occurring psychiatric disorder 7. Severe withdrawal that cannot be handled at a lower level of care (continued vomiting, continued diarrhea, abnormal vital signs) requiring intravenous medication and/or fluids 8. Admission ROS S - HPI Allergies/Adverse Reactions: Allergies Allergy/AdvReac Type Severity Reaction Status Date / Time erythromycin base Allergy Severe Hives Verified 10/30/18 14:37 tomato Allergy Severe Hives Verified 10/30/18 14:37 History of Present Illness: pt here requesting detox from etoh use , reports 2 pints bacardi/day and 6-pk beer /day , latest use this morning, current symptoms as above , reports tremors if not drinking, diarrhea/ vomiting , denies seizures, blackouts , reports use x 7 months , prior use since age 27 in lower amounts , longest sobriety 2014 while on parole . cocaine : denies ivdu , reports 300-400 $/day , " from sun up to sun down " since age 27 tobacco : 08/24 ppd since age 27 PMhx/ Pshx : denies Psych : denies , denies Si / HI SHx : lives w/ BF , denies current legal issues Exam Limitations: Clinical Condition, Intoxication - Ebola screening Have you traveled outside of the country in the last 21 days: No Have you had contact with anyone from an Ebola affected area: No Have you been sick,other than usual withdrawal symptoms: No Do you have a fever: No - Review of Systems Constitutional: See HPI EENT: reports: Other (denies dysphagia , rpeorts some difficulty chewing due to missing teeth , denies vision loss) Respiratory: reports: No Symptoms reported Cardiac: reports: No Symptoms Reported GI: reports: See HPI : reports: No Symptoms Reported Musculoskeletal: reports: No Symptoms Reported Integumentary: reports: No Symptoms Reported Psychiatric: reports: Orientated x3, Agitated, Anxious Patient History - Patient Medical History Hx Anemia: No Hx Asthma: No Hx Chronic Obstructive Pulmonary Disease (COPD): No Hx Cancer: No Hx Cardiac Disorders: No Hx Congestive Heart Failure: No Hx Hypertension: No Hx Hypercholesterolemia: No Hx Pacemaker: No HX Cerebrovascular Accident: No Hx Seizures: No Hx Diabetes: Yes (pt report her took her off metformin) Hx Gastrointestinal Disorders: No Hx Liver Disease: No Hx Genitourinary Disorders: No Hx Sexually Transmitted Disorders: No Hx Renal Disease (ESRD): No Hx Thyroid Disease: No Hx Human Immunodeficiency Virus (HIV): No (07/07 negative) Hx Hepatitis C: No Hx Depression: No Hx Suicide Attempt: No Hx Bipolar Disorder: Yes (on meds) Hx Schizophrenia: No - Patient Surgical History Past Surgical History: Yes Hx Neurologic Surgery: No Hx Cataract Extraction: No Hx Cardiac Surgery: No Hx Lung Surgery: No Hx Breast Surgery: No Hx Breast Biopsy: No Hx Abdominal Surgery: No Hx Appendectomy: No Hx Cholecystectomy: No Hx Genitourinary Surgery: No Hx Section: No Hx Orthopedic Surgery: No Hx Hysterectomy: No Other Surgical History: 1997 RIGHT OVERY REMOVED Anesthesia Reaction: No - PPD History Date: 04/30/17 Results: 0.0 mm - Reproductive History Last Menstrual Period: 08/29/07 - Smoking Cessation Smoking history: Current every day smoker Have you smoked in the past 12 months: Yes Aproximately how many cigarettes per day: 5 Cigars Per Day: 0 Hx Chewing Tobacco Use: No Initiated information on smoking cessation: No - Substances Abused Alcohol Route: Oral Frequency: Daily Amount used: 2 pints rum/ 6pk beer Age of first use: 27 Date of Last Use: 10/30/18 Crack Route: Smoking Frequency: Daily Amount used: $300 Age of first use: 27 Date of Last Use: 10/29/18 Family Disease History - Family Disease History Family Disease History: CA: Mother (), Other: Father ( KILLED), Mother Admission Physical Exam [facility] - Vital Signs Vital Signs: Vital Signs - 24 hr 10/30/18 13:58 Temperature 97.3 F L Pulse Rate 85 Respiratory 18 Rate Blood Pressure 131/79 - Physical General Appearance: Yes: Disheveled, Mild Distress, Thin, Anxious HEENTM: Yes: EOMI, Hearing grossly Normal, Normocephalic, Normal Voice, Other ( poor dentition) Respiratory: Yes: Chest Non-Tender, Lungs Clear, Normal Breath Sounds Neck: Yes: No masses,lesions,Nodules, Trachea in good position Cardiology: Yes: Regular Rhythm, Regular Rate, S1, S2 Abdominal: Yes: Normal Bowel Sounds, Non Tender, Soft Back: Yes: Normal Inspection Musculoskeletal: Yes: Gait Steady Extremities: Yes: Non-Tender Neurological: Yes: Motor Strength 5/5 Integumentary: Yes: Dry - Diagnostic (1) Alcohol dependence with uncomplicated withdrawal Current Visit: Yes Status: Acute (2) Cocaine dependence Current Visit: Yes Status: Chronic Qualifiers: Substance use status: uncomplicated Qualified Code(s): F14.20 - Cocaine dependence, uncomplicated (3) Nicotine dependence Current Visit: Yes Status: Chronic Qualifiers: Nicotine product type: cigarettes BHS Breath Alcohol Content Breath Alcohol Content: 0 Urine Pregancy Test - Result Urine Test Results: Negative - NO Line Present Urine Drug Screen - Results Drug Screen Negative: No Urine Drug Screen Results: CLARISSA-Cocaine Inpatient Rehab Admission - Rehab Decision to Admit Inpatient rehab admission?: No
[2018-10-30] MEDS ORDERED: MELATONIN 5 MG TABLETS PO PRN (14:15)
[2018-10-30] MEDS ORDERED: IBUPROFEN 400 MG TABLET (FP) PO PRN (14:15)
[2018-10-30] MEDS ORDERED: ACETAMINOPHEN 325 MG TABLET (FP) PO PRN (14:15)
[2018-10-30] MEDS ORDERED: MAG HYDROX/AL HYDROX/SIMETH 30 ML UNIT-DOSE CUP PO PRN (14:15)
[2018-10-30] MEDS ORDERED: DICYCLOMINE HCL 10 MG CAPSULE PO PRN (14:15)
[2018-10-30] MEDS ORDERED: MAGNESIUM HYDROX 2400MG/30ML ORAL SUSPENSION 30 ML CUP PO PRN (14:15)
[2018-10-30] MEDS ORDERED: MAGNESIUM CITRATE 300 ML BOTTLE PO PRN (14:15)
[2018-10-30] MEDS ORDERED: diazePAM 5 MG TABLET PO PRN (14:15)
[2018-10-30] MEDS ORDERED: MENTHOL/PHENOL 1 EACH UD MM PRN (14:15)
[2018-10-30] MEDS: THIAMINE HCL 100 MG TABLET (FP) PO SCH (22:39)
[2018-10-30] MEDS: diazePAM 5 MG TABLET PO SCH (22:40)
[2018-10-31] MEDS: diazePAM 5 MG TABLET PO SCH ×3 (05:51→22:15)
[2018-10-31] MEDS: PRENATAL VITAMINS W/ FOLIC ACID TABLET (FP) PO SCH (10:42)
[2018-10-31 10:56] LABS: HEMATOCRIT 38.7 % (32.4-45.2); MCH 33.1 pg (25.7-33.7); MCHC 33.6 g/dl (32.0-36.0); MEAN CELL VOLUME 98.7 fl (80-96); MEAN PLT VOLUME 9.8 fl (7.5-11.1); PLATELET COUNT 184 K/MM3 (134-434); RBC 3.92 M/mm3 (3.60-5.2); RDW 14.1 % (11.6-15.6); WHITE BLOOD COUNT 2.8 K/mm3 (4.0-10.0)
[2018-10-31 11:23] LABS: ALBUMIN 3.7 g/dl (3.4-5.0); ALK PHOS 82 U/L (45-117); ANION GAP 8 MMOL/L (8-16); BILIRUBIN,TOTAL 0.4 mg/dL (0.2-1); BLOOD UREA NITROGEN 15 mg/dL (7-18); CHLORIDE 105 mmol/L (98-107); CO2 25 mmol/L (21-32); CREATININE 0.9 mg/dL (0.55-1.3); GLUCOSE,RANDOM 102 mg/dL (74-106); POTASSIUM 4.3 mmol/L (3.5-5.1); SGOT/AST 17 U/L (15-37); SGPT/ALT 21 U/L (13-61); SODIUM 138 mmol/L (136-145); TOT PROT 8.6 g/dl (6.4-8.2)
--- NOTE | 2018-10-31 13:54 | PN ---
S CIWA - CIWA Score Nausea/Vomitin-Mild Nausea/No Vomiting Muscle Tremors: 2 Anxiety: 2 Agitation: 2 Paroxysmal Sweats: 1-Minimal Palms Moist Orientation: 0-Oriented Tacttile Disturbances: 0-None Auditory Disturbances: 0-None Visual Disturbances: 0-None Headache: 1-Very Mild CIWA-Ar Total Score: 9 S Progress Note (SOAP) Subjective: tremor tremor restlessness trouble sleep at night Objective: 10/31/18 13:59 Vital Signs Temperature 99.0 F 10/31/18 13:30 Pulse Rate 88 10/31/18 13:30 Respiratory Rate 18 10/31/18 13:30 Blood Pressure 119/77 10/31/18 13:30 O2 Sat by Pulse Oximetry (%) Laboratory Last Values WBC 2.8 K/mm3 (4.0-10.0) L 10/31/18 06:00 RBC 3.92 M/mm3 (3.60-5.2) 10/31/18 06:00 Hgb 13.0 GM/dL (10.7-15.3) 10/31/18 06:00 Hct 38.7 % (32.4-45.2) 10/31/18 06:00 MCV 98.7 fl (80-96) H 10/31/18 06:00 MCH 33.1 pg (25.7-33.7) 10/31/18 06:00 MCHC 33.6 g/dl (32.0-36.0) 10/31/18 06:00 RDW 14.1 % (11.6-15.6) 10/31/18 06:00 Plt Count 184 K/MM3 (134-434) D 10/31/18 06:00 MPV 9.8 fl (7.5-11.1) 10/31/18 06:00 Sodium 138 mmol/L (136-145) 10/31/18 06:00 Potassium 4.3 mmol/L (3.5-5.1) 10/31/18 06:00 Chloride 105 mmol/L (98-107) 10/31/18 06:00 Carbon Dioxide 25 mmol/L (21-32) 10/31/18 06:00 Anion Gap 8 MMOL/L (8-16) 10/31/18 06:00 BUN 15 mg/dL (7-18) 10/31/18 06:00 Creatinine 0.9 mg/dL (0.55-1.3) 10/31/18 06:00 Creat Clearance w eGFR > 60 (>60) 10/31/18 06:00 Random Glucose 102 mg/dL (74-106) 10/31/18 06:00 Calcium 9.0 mg/dL (8.5-10.1) 10/31/18 06:00 Total Bilirubin 0.4 mg/dL (0.2-1) 10/31/18 06:00 AST 17 U/L (15-37) 10/31/18 06:00 ALT 21 U/L (13-61) 10/31/18 06:00 Alkaline Phosphatase 82 U/L (45-117) 10/31/18 06:00 Total Protein 8.6 g/dl (6.4-8.2) H 10/31/18 06:00 Albumin 3.7 g/dl (3.4-5.0) 10/31/18 06:00 RPR Titer Nonreactive (NONREACTIVE) 10/31/18 06:00 lab noted encourage the patient bring in lab report to psychiatrist low wbc repeat wbc 10/31/18 14:03 Assessment: 10/31/18 14:04 withdrawal sx low wbc Plan: continue detox repeat cbc patient is taking depakote for bipolar
--- NOTE | 2018-10-31 17:49 | CONSULT ---
[facility] Psychiatric Consult - Data Date of interview: 10/31/18 Admission source: [facility] Identifying data: This is one of multiple admissions to [facility] for this 52 y/ o AA female self-referred for detoxification (alcohol, crack/cocaine). Interviewed on . Patient is giorgie, a mother of ten, domiciled, unemployed and supported on SSI benefits. Substance Abuse History: Discussed in this session. patient admits to a long standing history of alcohol abuse (2 pints of rum + 1 X 6 pack of beer daily since age 26) and reports spending up to 200-400 dollars on crack/cocaine. dditional details in current [facility] report as follows : Smoking history: Current every day smoker. Have you smoked in the past 12 months: Yes. Aproximately how many cigarettes per day: 5. Cigars Per Day: 0. Hx Chewing Tobacco Use: No. Initiated information on smoking cessation: No. - Substances Abused. Alcohol. Route: Oral. Frequency: Daily. Amount used: 2 pints rum/ 6pk beer. Age of first use: 27. Date of Last Use: 10/30/18. Crack. Route: Smoking. Frequency: Daily. Amount used: $300. Age of first use: 27. Date of Last Use: 10/29/18 Medical History: Patient reports gout, neuropathy, diabetes mellitus ( questionable), antecedent of ectopic pregnacy and a history of right oophorectomy. Psychiatric History: Patient endorses a history of multiple psychiatric hospitalizations ([facility], [facility], [facility] [place] Onset of psychiatric disturbances : 1997. Ms Burnette has been reportedly diagnosed with Bipolar Disorder and prescribed valproate, risperdal and trazodone. Not always adherent to her medications. Patient attributes this lack of compliance to problems with insurance coverage. " I had difficulty to get my refills because of problems with my insurance ". Most recent psychiatric rehospitalization was at [facility] (2017). Patient used to see Dr. Madden , psychiatrist at the [facility] clinic in [facility]. No show for several months. In this interview, the patient reports that she has neglected OPD care since March 2018. Patient denies history of suicide attempts. Physical/Sexual Abuse/Trauma History: Not discussed. Patient declines. Additional Comment: Urine Drug Screen Results: CLARISSA-Cocaine. Noted. Mental Status Exam - Mental Status Exam Alert and Oriented to: Time, Place, Person Cognitive Function: Good Patient Appearance: Disheveled Mood: Withdrawn, Anxious, Irritable Affect: Mood Congruent, Constricted Patient Behavior: Fatigued, Cooperative (marginally cooperative) Speech Pattern: Clear, Appropriate Voice Loudness: Normal Thought Process: Goal Oriented Thought Disorder: Not Present Hallucinations: Denies Suicidal Ideation: Denies Homicidal Ideation: Denies Insight/Judgement: Poor Sleep: Poorly, Difficulty falling asleep Appetite: Good Gait/Station: Normal Psychiatric Findings - Problem List ([place] 1, 2,3) (1) Alcohol dependence with uncomplicated withdrawal Current Visit: Yes Status: Acute (2) Cocaine dependence Current Visit: Yes Status: Chronic Qualifiers: Substance use status: uncomplicated Qualified Code(s): F14.20 - Cocaine dependence, uncomplicated (3) Nicotine dependence Current Visit: Yes Status: Chronic Qualifiers: Nicotine product type: cigarettes (4) Substance induced mood disorder Current Visit: Yes Status: Chronic (5) Bipolar disorder Current Visit: Yes Status: Chronic (6) Insomnia Current Visit: Yes Status: Chronic (7) Non-compliance Current Visit: Yes Status: Chronic - Initial Treatment Plan Initial Treatment Plan: Records at [facility] revisited. Psychoeducation. Sleep hygiene recommended. Detoxification initiated. AA meetings. Patient will be informed, during treatment, about strategies for relapse prevention (medication- assisted approach, AA fellowship, counseling, harm reduction principles). Made aware of the benefits of adherence to mood stabilizers + atypical agents. Patient verbalizes intent to resume her medications (noted refills for depakote , risperdal and trazodone issued on 09/18/18 : not picked up by the patient). Will resume risperdal at the dose of 0.5 mg po bid + trazodone 50 mg po hs. Depakote held until further orders. Side effects/benefits of these three drugs are discussed with patient. Made aware of potential for movement disorders ( dystonias, dyskinesias, akathisia, akinesia), neuroleptic malignant syndrome, endocrine issues (galactorrhea, gynecomastia, sexual dysfunction) and cardiac adverse events. No report of history of adverse effects on this combination. Mr Burnette consents (verbally) to get back on these drugs. Observation.
[2018-10-31] MEDS ORDERED: traZODone HCL 50 MG TABLET (FP) PO ONE (22:00)
[2018-10-31] MEDS: THIAMINE HCL 100 MG TABLET (FP) PO SCH (22:14)
[2018-10-31] MEDS: risperiDONE 0.5 MG TABLET (FP) PO SCH (22:18)
[2018-10-31] MEDS: traZODone HCL 50 MG TABLET (FP) PO SCH (22:18)
[2018-11-01] MEDS: ACETAMINOPHEN 325 MG TABLET (FP) PO PRN ×2 (06:01→15:16)
[2018-11-01] MEDS: PRENATAL VITAMINS W/ FOLIC ACID TABLET (FP) PO SCH (10:08)
[2018-11-01] MEDS: diazePAM 5 MG TABLET PO SCH ×2 (10:08→21:04)
[2018-11-01] MEDS: risperiDONE 0.5 MG TABLET (FP) PO SCH ×2 (10:08→21:04)
[2018-11-01 10:22] LABS: BASO % 0.8 % (0-2.0); EOS % 3.1 % (0-4.5); HEMATOCRIT 37.9 % (32.4-45.2); HEMOGLOBIN 12.6 GM/dL (10.7-15.3); MCH 32.9 pg (25.7-33.7); MCHC 33.3 g/dl (32.0-36.0); MEAN CELL VOLUME 98.7 fl (80-96); MEAN PLT VOLUME 9.8 fl (7.5-11.1); MONO % 15.7 % (3.8-10.2); NEUT % 49.4 % (42.8-82.8); PLATELET COUNT 164 K/MM3 (134-434); RBC 3.84 M/mm3 (3.60-5.2); RDW 14.1 % (11.6-15.6); WHITE BLOOD COUNT 3.6 K/mm3 (4.0-10.0)
--- NOTE | 2018-11-01 16:01 | PN ---
[facility] CIWA - CIWA Score Nausea/Vomitin-No Nausea/No Vomiting Muscle Tremors: None Anxiety: 4-Mod. Anxious/Guarded Agitation: 0-Normal Activity Paroxysmal Sweats: No Perspiration Orientation: 0-Oriented Tacttile Disturbances: 3-Moderate Itch/Numb/Burn Auditory Disturbances: 0-None Visual Disturbances: 2-Mild Sensitivity Headache: 0-None Present CIWA-Ar Total Score: 9 BHS Progress Note (SOAP) Subjective: Anxious, Fatigue. Patient Reports sensations of Vaginal "Burning and Itching" along with vaginal discharge with a foul odor X approx. 1 week. Patient also reports "Burning" sensation when urinating during that same time period. Objective: PATIENT A & O X 3. IN NO ACUTE DISTRESS. 11/01/18 15:57 Vital Signs Temperature 98.4 F 11/01/18 14:16 Pulse Rate 116 H 11/01/18 14:16 Respiratory Rate 18 11/01/18 14:16 Blood Pressure 112/77 11/01/18 14:16 O2 Sat by Pulse Oximetry (%) Laboratory Tests 10/31/18 10/31/18 10/31/18 06:00 06:00 06:00 WBC 2.8 L RBC 3.92 Hgb 13.0 Hct 38.7 MCV 98.7 H MCH 33.1 MCHC 33.6 RDW 14.1 Plt Count 184 D MPV 9.8 Absolute Neuts (auto) Neutrophils % Lymphocytes % Monocytes % Eosinophils % Basophils % Nucleated RBC % Sodium 138 Potassium 4.3 Chloride 105 Carbon Dioxide 25 Anion Gap 8 BUN 15 Creatinine 0.9 Creat Clearance w eGFR > 60 Random Glucose 102 Calcium 9.0 Total Bilirubin 0.4 AST 17 ALT 21 Alkaline Phosphatase 82 Total Protein 8.6 H Albumin 3.7 RPR Titer Nonreactive 11/01/18 07:00 WBC 3.6 L RBC 3.84 Hgb 12.6 Hct 37.9 MCV 98.7 H MCH 32.9 MCHC 33.3 RDW 14.1 Plt Count 164 MPV 9.8 Absolute Neuts (auto) 1.8 Neutrophils % 49.4 Lymphocytes % 31.0 Monocytes % 15.7 H Eosinophils % 3.1 Basophils % 0.8 Nucleated RBC % 0 Sodium Potassium Chloride Carbon Dioxide Anion Gap BUN Creatinine Creat Clearance w eGFR Random Glucose Calcium Total Bilirubin AST ALT Alkaline Phosphatase Total Protein Albumin RPR Titer LABS NOTED. Assessment: 11/01/18 15:58 WITHDRAWAL SYMPTOMS. Plan: CONTINUE DETOX. INCREASE DAILY PO FLUID INTAKE. UA ORDERED. MONITSTAT VAGINAL CREAM ORDERED FOR VAGINAL SYMPTOMS.
[2018-11-01 19:14] LABS: URINE APPEARANCE SLCLOUDY; URINE BILIRUBIN NEGATIVE (<2.0 mg/dL); URINE COLOR YELLOW; URINE GLUCOSE (UA) NEGATIVE (NEGATIVE); URINE KETONE NEGATIVE (NEGATIVE); URINE LEUK ESTERASE 3+ (NEGATIVE); URINE NITRITE NEGATIVE (NEGATIVE); URINE PROTEIN NEGATIVE (NEGATIVE)
[2018-11-01 19:32] LABS: EPI CELLS RARE /HPF (FEW); URINE BACTERIA RARE /hpf (NONE SEEN); URINE MUCUS RARE
[2018-11-01] MEDS: THIAMINE HCL 100 MG TABLET (FP) PO SCH (21:04)
[2018-11-01] MEDS: traZODone HCL 50 MG TABLET (FP) PO SCH (21:06)
[2018-11-01] MEDS ORDERED: MICONAZOLE NITRATE 2% VAGINAL CREAM 45 GM TUBE VG SCH (22:00)
[2018-11-02] MEDS: ACETAMINOPHEN 325 MG TABLET (FP) PO PRN (05:58)
[2018-11-02] MEDS ORDERED: diazePAM 5 MG TABLET PO SCH (06:00)
[2018-11-02 06:44] VITALS: BP 132/92; PULSE 93; TEMP 97.4
--- NOTE | 2018-11-02 18:29 | DS ---
[facility] Detox Discharge Summary Admission Date: 10/30/18 Discharge Date: 11/02/18 - History Present History: Alcohol Dependence, Cocaine Dependence Additional Comments: PATIENT GOING HOME FOR NEXT COUPLE OF DAYS TO ATTEND TO PERSONAL MATTERS, THEN SHE WILL GO TO APPLY FOR ADMISSION FOR REHAB AT [facility] ([place], [place]) ON 11/05/2018. RESULTS OF UA DONE PRIOR TO DISCHARGE NOTED PRESCRIPTION FOR BACTRIM DS (FOR TREATMENT OF URINARY TRACT INFECTION) SENT TO [facility] ([address] [place] [address]) FOR FOLLOW-UP AFTERCARE. PATIENT ADVISED TO COMPLETE FULL COURSE OF ANTIBIOTIC AND TO INCREASE DAILY INTAKE OF WATER. PATIENT VERBALIZED UNDERSTANDING OF RECOMMENDATION. PATIENT WAS DISCHARGED FROM DETOX UNIT IN STABLE MEDICAL CONDITION. Pertinent Past History: Nicotine Dependence, DM, History of Bipolar Disorder, Leukopenia, Insomnia. - Physical Exam Results Vital Signs: Vital Signs Temperature 97.4 F L 11/02/18 06:43 Pulse Rate 93 H 11/02/18 06:43 Respiratory Rate 18 11/02/18 06:43 Blood Pressure 132/92 11/02/18 06:43 O2 Sat by Pulse Oximetry (%) Pertinent Admission Physical Exam Findings: WITHDRAWAL SYMPTOMS. Laboratory Tests 10/31/18 10/31/18 10/31/18 06:00 06:00 06:00 WBC 2.8 L RBC 3.92 Hgb 13.0 Hct 38.7 MCV 98.7 H MCH 33.1 MCHC 33.6 RDW 14.1 Plt Count 184 D MPV 9.8 Absolute Neuts (auto) Neutrophils % Lymphocytes % Monocytes % Eosinophils % Basophils % Nucleated RBC % Sodium 138 Potassium 4.3 Chloride 105 Carbon Dioxide 25 Anion Gap 8 BUN 15 Creatinine 0.9 Creat Clearance w eGFR > 60 Random Glucose 102 Calcium 9.0 Total Bilirubin 0.4 AST 17 ALT 21 Alkaline Phosphatase 82 Total Protein 8.6 H Albumin 3.7 Urine Color Urine Appearance Urine pH Ur Specific [place] Urine Protein Urine Glucose (UA) Urine Ketones Urine Blood Urine Nitrite Urine Bilirubin Urine Urobilinogen Ur Leukocyte Esterase Urine WBC (Auto) Urine RBC (Auto) Ur Epithelial Cells Urine Bacteria Urine Mucus RPR Titer Nonreactive 11/01/18 11/01/18 07:00 15:56 WBC 3.6 L RBC 3.84 Hgb 12.6 Hct 37.9 MCV 98.7 H MCH 32.9 MCHC 33.3 RDW 14.1 Plt Count 164 MPV 9.8 Absolute Neuts (auto) 1.8 Neutrophils % 49.4 Lymphocytes % 31.0 Monocytes % 15.7 H Eosinophils % 3.1 Basophils % 0.8 Nucleated RBC % 0 Sodium Potassium Chloride Carbon Dioxide Anion Gap BUN Creatinine Creat Clearance w eGFR Random Glucose Calcium Total Bilirubin AST ALT Alkaline Phosphatase Total Protein Albumin Urine Color Yellow Urine Appearance Slcloudy Urine pH 6.0 Ur Specific [place] 1.020 Urine Protein Negative Urine Glucose (UA) Negative Urine Ketones Negative Urine Blood Negative Urine Nitrite Negative Urine Bilirubin Negative Urine Urobilinogen 2.0 H Ur Leukocyte Esterase 3+ H Urine WBC (Auto) 4 Urine RBC (Auto) 2 Ur Epithelial Cells Rare Urine Bacteria Rare Urine Mucus Rare RPR Titer LABS NOTED. - Treatment Hospital Course: Detox Protocol Followed, Detoxed Safely, Responded well, Discharged Condition Good, Rehab Referral Accepted Patient has Accepted a Rehab Referral to: [facility] ([place], [place]). - Medication Discharge Medications: Ambulatory Orders Miconazole Nitrate [Monistat-7 Vaginal Cream -] 1 applic VG HS 7 Days #7 tube Sulfamethoxazole/Trimethoprim [Bactrim Ds -] 1 tab PO BID 7 Days #14 tablet - Diagnosis (1) Alcohol dependence with uncomplicated withdrawal Status: Acute (2) Leukopenia Status: Acute Qualifiers: Leukopenia type: unspecified Qualified Code(s): D72.819 - Decreased white blood cell count, unspecified (3) Bipolar disorder Status: Chronic Qualifiers: Active/Remission status: remission status unspecified Qualified Code(s): F31.9 - Bipolar disorder, unspecified (4) Insomnia Status: Chronic Qualifiers: Insomnia type: unspecified Qualified Code(s): G47.00 - Insomnia, unspecified (5) Nicotine dependence Status: Chronic Qualifiers: Nicotine product type: cigarettes Substance use status: uncomplicated Qualified Code(s): F17.210 - Nicotine dependence, cigarettes, uncomplicated (6) Non-compliance Status: Chronic (7) Substance induced mood disorder Status: Chronic (8) Cocaine dependence Status: Chronic Qualifiers: Substance use status: uncomplicated Qualified Code(s): F14.20 - Cocaine dependence, uncomplicated - AMA Did Patient Leave Against Medical Advice: No
== END 2018-11-02 09:17 | disposition home or self-care (01) | DRG 774 ==
LOC: YASAS 11:02 → Y3N 14:52
PROVIDERS: ADMIT Surgery; ATTEND Surgery
PROC: HZ2ZZZZ Detoxification Services for Substance Abuse Treatment (ICD-10-PCS; principal; 2018-10-30)
DX: F10.230 Alcohol dependence with withdrawal, uncomplicated (principal); F14.20 Cocaine dependence, uncomplicated; F17.213 Nicotine dependence, cigarettes, with withdrawal; F19.24 Other psychoactive substance dependence with psychoactive substance-induced mood disorder; F31.9 Bipolar disorder, unspecified; E11.9 Type 2 diabetes mellitus without complications; D72.818 Other decreased white blood cell count; G47.00 Insomnia, unspecified; Z91.19 Patient's noncompliance with other medical treatment and regimen; Z88.1 Allergy status to other antibiotic agents; Z91.018 Allergy to other foods
CPT/HCPCS: 36415; 80053; 81003; 81015; 85025; 85027; 86593

== ENCOUNTER 2019-01-17 13:09 | Inpatient (IN) | payer OTHER ==
[2019-01-17 13:48] VITALS: BMI 20.9
--- NOTE | 2019-01-17 15:56 | HP ---
CIWA Score Nausea/Vomitin-No Nausea/No Vomiting Muscle Tremors: None Anxiety: 4-Mod. Anxious/Guarded Agitation: 1-Slight > Activity Paroxysmal Sweats: 2 Orientation: 0-Oriented Tacttile Disturbances: 0-None Auditory Disturbances: 2-Mild Harshness/Frighten Visual Disturbances: 3-Moderate Sensitivity Headache: 0-None Present CIWA-Ar Total Score: 12 - Admission Criteria OASAS Guidelines: Admission for Medically Managed Detox: Requires at least one of the followin. CIWA greater than 12 2. Seizures within the past 24 hours 3. Delirium tremens within the past 24 hours 4. Hallucinations within the past 24 hours 5. Acute intervention needed for co occurring medical disorder 6. Acute intervention needed for co occurring psychiatric disorder 7. Severe withdrawal that cannot be handled at a lower level of care (continued vomiting, continued diarrhea, abnormal vital signs) requiring intravenous medication and/or fluids 8. Admission ROS S - HPI Allergies/Adverse Reactions: Allergies Allergy/AdvReac Type Severity Reaction Status Date / Time erythromycin base Allergy Severe Hives Verified 01/17/19 13:38 tomato Allergy Severe Hives Verified 01/17/19 13:38 History of Present Illness: pt here requesting detox from etoh use , reports 2 pints and 6 x 16 oz beers/ day since age 27 , reports diarrhea if not drinking , tremors , denies seizures or blackouts , latest use this morning, current symptoms as above . 200 $ cocaine /day since age 27 tobacco : 6 cigs/day pmhx : dm " I am fine now " denies meds pshx : denies psych : denies meds : denies Exam Limitations: Clinical Condition - Ebola screening Have you traveled outside of the country in the last 21 days: No Have you had contact with anyone from an Ebola affected area: No - Review of Systems Constitutional: Loss of Appetite EENT: reports: No Symptoms Reported Respiratory: reports: No Symptoms reported Cardiac: reports: No Symptoms Reported GI: reports: See HPI, Abdominal cramping : reports: No Symptoms Reported Musculoskeletal: reports: No Symptoms Reported Integumentary: reports: Other (" my toenails hurt ") Neuro: reports: See HPI, Headache, Tremors Endocrine: reports: No Symptoms Reported Psychiatric: reports: Orientated x3, Anxious Patient History - Patient Medical History Hx Anemia: No Hx Asthma: No Hx Chronic Obstructive Pulmonary Disease (COPD): No Hx Cancer: No Hx Cardiac Disorders: No Hx Congestive Heart Failure: No Hx Hypertension: No Hx Hypercholesterolemia: No Hx Pacemaker: No HX Cerebrovascular Accident: No Hx Seizures: No Hx Diabetes: Yes (pt report her took her off metformin) Hx Gastrointestinal Disorders: No Hx Liver Disease: No Hx Genitourinary Disorders: No Hx Sexually Transmitted Disorders: No Hx Renal Disease (ESRD): No Hx Thyroid Disease: No Hx Human Immunodeficiency Virus (HIV): No (07/07 negative) Hx Hepatitis C: No Hx Depression: No Hx Suicide Attempt: No Hx Bipolar Disorder: Yes (on meds) Hx Schizophrenia: No - Patient Surgical History Past Surgical History: Yes Hx Neurologic Surgery: No Hx Cataract Extraction: No Hx Cardiac Surgery: No Hx Lung Surgery: No Hx Breast Surgery: No Hx Breast Biopsy: No Hx Abdominal Surgery: No Hx Appendectomy: No Hx Cholecystectomy: No Hx Genitourinary Surgery: No Hx Section: No Hx Orthopedic Surgery: No Hx Hysterectomy: No Other Surgical History: 1997 RIGHT OVERY REMOVED Anesthesia Reaction: No - PPD History Date: 11/01/18 Results: 0.0 mm - Reproductive History Last Menstrual Period: 08/29/07 - Smoking Cessation Smoking history: Current every day smoker Have you smoked in the past 12 months: Yes Aproximately how many cigarettes per day: 5 Cigars Per Day: 0 Hx Chewing Tobacco Use: No Initiated information on smoking cessation: No - Substances abused Alcohol Substance route: Oral Frequency: Daily Amount used: VODKA- 2.5 PTS UNCOUNTABLE BEERS(PT STATES) Age of first use: 27 Date of last use: 01/17/19 Crack Substance route: Smoking Frequency: Daily Amount used: $200 Age of first use: 27 Date of last use: 01/17/19 Family Disease History - Family Disease History Family Disease History: CA: Mother ( 2017 throat CA ), Other: Father ( KILLED), Mother Admission Physical Exam BHS - Vital Signs Vital Signs: Vital Signs - 24 hr 01/17/19 13:38 Temperature 97.7 F Pulse Rate 77 Respiratory 18 Rate Blood Pressure 137/88 - Physical General Appearance: Yes: No Apparent Distress, Disheveled, Mild Distress, Anxious HEENTM: Yes: EOMI, Hearing grossly Normal, Normocephalic, Muffled/Hoarse Voice Respiratory: Yes: Chest Non-Tender, Lungs Clear, Normal Breath Sounds, No Respiratory Distress, No Accessory Muscle Use Neck: Yes: No masses,lesions,Nodules, Trachea in good position Cardiology: Yes: Regular Rhythm, Regular Rate, S1, S2 Abdominal: Yes: Non Tender, Soft Back: Yes: Normal Inspection Musculoskeletal: Yes: full range of Motion, Gait Steady Extremities: Yes: Non-Tender, Tremors Neurological: Yes: Fully Oriented, Motor Strength 5/5 Integumentary: Yes: Warm - Diagnostic (1) Alcohol dependence with uncomplicated withdrawal Current Visit: Yes Status: Acute (2) Cocaine dependence Current Visit: Yes Status: Chronic Qualifiers: Substance use status: uncomplicated Qualified Code(s): F14.20 - Cocaine dependence, uncomplicated (3) Nicotine dependence Current Visit: Yes Status: Chronic Qualifiers: Nicotine product type: cigarettes Breathalyzer - Breathalyzer Breathalyzer: 0 Urine Drug Screen - Test Device Lot number: [id number] Expiration date: 10/18/20 - Control Is test valid?: Yes - Results Drug screen NEGATIVE: No Urine drug screen results: CLARISSA-Cocaine Inpatient Rehab Admission - Rehab Decision to Admit Inpatient rehab admission?: No
[2019-01-17] MEDS ORDERED: BISMUTH SUBSALICYLATE 524 MG/30 ML UD PO PRN (16:19)
[2019-01-17] MEDS ORDERED: MAGNESIUM CITRATE 300 ML BOTTLE PO PRN (16:19)
[2019-01-17] MEDS ORDERED: IBUPROFEN 400 MG TABLET (FP) PO PRN (16:19)
[2019-01-17] MEDS ORDERED: MENTHOL/PHENOL 1 EACH UD MM PRN (16:19)
[2019-01-17] MEDS ORDERED: chlordiazePOXIDE HCL 25 MG CAPSULE PO PRN (16:19)
[2019-01-17] MEDS ORDERED: ACETAMINOPHEN 325 MG TABLET (FP) PO PRN (16:19)
[2019-01-17] MEDS ORDERED: hydrOXYzine PAMOATE 25 MG CAPSULE (FP) PO PRN (16:19)
[2019-01-17] MEDS ORDERED: MAGNESIUM HYDROX 2400MG/30ML ORAL SUSPENSION 30 ML CUP PO PRN (16:19)
[2019-01-17] MEDS ORDERED: MAG HYDROX/AL HYDROX/SIMETH 30 ML UNIT-DOSE CUP PO PRN (16:19)
[2019-01-17] MEDS ORDERED: NICOTINE POLACRILEX 2 MG GUM BUC PRN (16:19)
[2019-01-17] MEDS: chlordiazePOXIDE HCL 25 MG CAPSULE PO SCH ×2 (17:14→22:05)
[2019-01-17] MEDS: THIAMINE HCL 100 MG TABLET (FP) PO SCH (22:05)
[2019-01-17] MEDS: MELATONIN 5 MG TABLETS PO PRN (22:05)
[2019-01-17] MEDS: ACETAMINOPHEN 325 MG TABLET (FP) PO PRN (22:07)
[2019-01-18] MEDS: chlordiazePOXIDE HCL 25 MG CAPSULE PO SCH ×4 (06:20→22:29)
[2019-01-18] MEDS: PRENATAL VITAMINS W/ FOLIC ACID TABLET (FP) PO SCH (10:57)
[2019-01-18 10:58] LABS: ALBUMIN 3.1 g/dl (3.4-5.0); BILIRUBIN,TOTAL 0.3 mg/dL (0.2-1); CALCIUM 9.3 mg/dL (8.5-10.1); CREATININE 0.8 mg/dL (0.55-1.3); POTASSIUM 3.8 mmol/L (3.5-5.1); TOT PROT 7.4 g/dl (6.4-8.2)
[2019-01-18 10:59] LABS: HEMATOCRIT 39.2 % (32.4-45.2); MCH 32.9 pg (25.7-33.7); MCHC 33.2 g/dl (32.0-36.0); MEAN CELL VOLUME 99.3 fl (80-96); MEAN PLT VOLUME 9.8 fl (7.5-11.1); PLATELET COUNT 171 K/MM3 (134-434); RBC 3.95 M/mm3 (3.60-5.2); RDW 13.2 % (11.6-15.6); WHITE BLOOD COUNT 2.8 K/mm3 (4.0-10.0)
--- NOTE | 2019-01-18 11:57 | PN ---
[facility] CIWA - CIWA Score Nausea/Vomitin-No Nausea/No Vomiting Muscle Tremors: 3 Anxiety: 2 Agitation: 3 Paroxysmal Sweats: 3 Orientation: 0-Oriented Tacttile Disturbances: 0-None Auditory Disturbances: 0-None Visual Disturbances: 0-None Headache: 0-None Present CIWA-Ar Total Score: 11 S Progress Note (SOAP) Subjective: agitation sweats shakes I am not a diabetic. I was in the past but managed with diet and exercise Objective: 01/18/19 11:57 Vital Signs Temperature 97.7 F 01/18/19 10:32 Pulse Rate 86 01/18/19 10:32 Respiratory Rate 18 01/18/19 10:32 Blood Pressure 117/78 01/18/19 10:32 O2 Sat by Pulse Oximetry (%) Laboratory Tests 01/17/19 01/18/19 01/18/19 15:20 06:23 07:00 WBC 2.8 L RBC 3.95 Hgb 13.0 Hct 39.2 MCV 99.3 H MCH 32.9 MCHC 33.2 RDW 13.2 Plt Count 171 MPV 9.8 Sodium Potassium Chloride Carbon Dioxide Anion Gap BUN Creatinine Est GFR (CKD-EPI)AfAm Est GFR (CKD-EPI)NonAf POC Glucometer 78 Random Glucose Calcium Total Bilirubin AST ALT Alkaline Phosphatase Total Protein Albumin POC Urine HCG, Qual Negative 01/18/19 07:00 WBC RBC Hgb Hct MCV MCH MCHC RDW Plt Count MPV Sodium 143 Potassium 3.8 Chloride 109 H Carbon Dioxide 29 Anion Gap 6 L BUN 14 Creatinine 0.8 Est GFR (CKD-EPI)AfAm 98.93 Est GFR (CKD-EPI)NonAf 85.36 POC Glucometer Random Glucose 68 L Calcium 9.3 Total Bilirubin 0.3 AST 12 L ALT 16 Alkaline Phosphatase 71 Total Protein 7.4 Albumin 3.1 L POC Urine HCG, Qual labs noted pt has a glucose of 68 d/c BGM aaox3 ambulating no acute distress Assessment: 01/18/19 11:59 withdrawal sx Plan: continue detox increase fluids regular diet ensure plus 120ml po bid bgm d/c
[2019-01-18] MEDS: THIAMINE HCL 100 MG TABLET (FP) PO SCH (22:29)
[2019-01-18] MEDS: MELATONIN 5 MG TABLETS PO PRN (22:29)
[2019-01-18] MEDS: ACETAMINOPHEN 325 MG TABLET (FP) PO PRN (22:30)
[2019-01-19] MEDS: chlordiazePOXIDE HCL 25 MG CAPSULE PO SCH ×2 (05:36→10:18)
[2019-01-19] MEDS ORDERED: COLLOIDAL OATMEAL 1 EACH PACKET TP SCH (10:00)
[2019-01-19] MEDS: PRENATAL VITAMINS W/ FOLIC ACID TABLET (FP) PO SCH (10:18)
[2019-01-19] MEDS: COLLOIDAL OATMEAL 1 BAR EACH TP PRN (11:29)
--- NOTE | 2019-01-19 12:26 | PN ---
[facility] CIWA - CIWA Score Nausea/Vomitin-No Nausea/No Vomiting Muscle Tremors: 2 Anxiety: 1-Mildly Anxious Agitation: 2 Paroxysmal Sweats: 5 Orientation: 0-Oriented Tacttile Disturbances: 0-None Auditory Disturbances: 0-None Visual Disturbances: 0-None Headache: 0-None Present CIWA-Ar Total Score: 10 S Progress Note (SOAP) Subjective: c/o sweats, interrupted sleep, and mild anxiety. Objective: 01/19/19 12:25 Vital Signs 01/19/19 01/19/19 06:00 09:12 Temperature 97.7 F 97.6 F Pulse Rate 79 92 H Respiratory 18 18 Rate Blood Pressure 143/95 120/73 Lab Results WBC 2.8 K/mm3 (4.0-10.0) L 01/18/19 07:00 RBC 3.95 M/mm3 (3.60-5.2) 01/18/19 07:00 Hgb 13.0 GM/dL (10.7-15.3) 01/18/19 07:00 Hct 39.2 % (32.4-45.2) 01/18/19 07:00 MCV 99.3 fl (80-96) H 01/18/19 07:00 MCHC 33.2 g/dl (32.0-36.0) 01/18/19 07:00 RDW 13.2 % (11.6-15.6) 01/18/19 07:00 Plt Count 171 K/MM3 (134-434) 01/18/19 07:00 Sodium 143 mmol/L (136-145) 01/18/19 07:00 Potassium 3.8 mmol/L (3.5-5.1) 01/18/19 07:00 Chloride 109 mmol/L (98-107) H 01/18/19 07:00 Carbon Dioxide 29 mmol/L (21-32) 01/18/19 07:00 Anion Gap 6 MMOL/L (8-16) L 01/18/19 07:00 BUN 14 mg/dL (7-18) 01/18/19 07:00 Creatinine 0.8 mg/dL (0.55-1.3) 01/18/19 07:00 Random Glucose 68 mg/dL (74-106) L 01/18/19 07:00 Calcium 9.3 mg/dL (8.5-10.1) 01/18/19 07:00 Labs noted. Assessment: 01/19/19 12:25 AOX3, in no acute distress. full rom, ambulating in the unit withdrawal symptoms. Plan: continue detox increase fluids.
[2019-01-19] MEDS ORDERED: chlordiazePOXIDE HCL 10 MG CAPSULE PO PRN (17:00)
[2019-01-19] MEDS: chlordiazePOXIDE HCL 10 MG CAPSULE PO SCH ×2 (18:11→22:31)
[2019-01-19] MEDS: MELATONIN 5 MG TABLETS PO PRN (22:31)
[2019-01-19] MEDS: THIAMINE HCL 100 MG TABLET (FP) PO SCH (22:31)
[2019-01-20] MEDS: chlordiazePOXIDE HCL 10 MG CAPSULE PO SCH ×2 (05:41→10:15)
[2019-01-20] MEDS: COLLOIDAL OATMEAL 1 BAR EACH TP PRN (09:47)
[2019-01-20] MEDS: PRENATAL VITAMINS W/ FOLIC ACID TABLET (FP) PO SCH (10:15)
[2019-01-20 14:37] VITALS: BP 133/80; PULSE 81; TEMP 97.7
--- NOTE | 2019-01-20 16:38 | DS ---
[facility] Detox Discharge Summary Admission Date: 01/17/19 Discharge Date: 01/20/19 - History Present History: Alcohol Dependence, Cocaine Dependence Additional Comments: Patient requested this morning to be discharged tomorrow (c/o feeling anxious and itching if she doesn't use aveeno soap as hospital liquid soap causes itching). Patient later requested to leave AMA despite encouragement from staff to complete detox. Patient stated she has cancer and need to go home and that she will then go to [facility]. Patient is stable upon leaving. Patient instructed to call 911 if feeling sick or withdrawal symptoms and to see her PCP within 1-3 days. Pertinent Past History: Alcohol dependence Cocaine dependence DM (diet controlled) Nicotine dependence Bipolar disorder - Physical Exam Results Vital Signs: Vital Signs Temperature 97.7 F 01/20/19 14:00 Pulse Rate 81 01/20/19 14:00 Respiratory Rate 16 01/20/19 14:00 Blood Pressure 133/80 01/20/19 14:00 O2 Sat by Pulse Oximetry (%) Pertinent Admission Physical Exam Findings: Withdrawal symptoms Laboratory Tests 01/17/19 01/18/19 01/18/19 15:20 06:23 07:00 WBC 2.8 L RBC 3.95 Hgb 13.0 Hct 39.2 MCV 99.3 H MCH 32.9 MCHC 33.2 RDW 13.2 Plt Count 171 MPV 9.8 Sodium Potassium Chloride Carbon Dioxide Anion Gap BUN Creatinine Est GFR (CKD-EPI)AfAm Est GFR (CKD-EPI)NonAf POC Glucometer 78 Random Glucose Calcium Total Bilirubin AST ALT Alkaline Phosphatase Total Protein Albumin POC Urine HCG, Qual Negative RPR Titer 01/18/19 01/18/19 07:00 07:00 WBC RBC Hgb Hct MCV MCH MCHC RDW Plt Count MPV Sodium 143 Potassium 3.8 Chloride 109 H Carbon Dioxide 29 Anion Gap 6 L BUN 14 Creatinine 0.8 Est GFR (CKD-EPI)AfAm 98.93 Est GFR (CKD-EPI)NonAf 85.36 POC Glucometer Random Glucose 68 L Calcium 9.3 Total Bilirubin 0.3 AST 12 L ALT 16 Alkaline Phosphatase 71 Total Protein 7.4 Albumin 3.1 L POC Urine HCG, Qual RPR Titer Nonreactive Labs reviewed - Treatment Hospital Course: Detox Protocol Followed - Medication Discharge Medications: Ambulatory Orders NK [No Known Home Medication] 01/17/19 - Diagnosis (1) Alcohol dependence with uncomplicated withdrawal Status: Acute (2) Diabetes mellitus, type 2 Status: Chronic (3) Bipolar disorder Status: Chronic Qualifiers: Active/Remission status: remission status unspecified Qualified Code(s): F31.9 - Bipolar disorder, unspecified (4) Cocaine dependence Status: Chronic Qualifiers: Substance use status: uncomplicated Qualified Code(s): F14.20 - Cocaine dependence, uncomplicated (5) Nicotine dependence Status: Chronic Qualifiers: Nicotine product type: cigarettes - AMA Did Patient Leave Against Medical Advice: Yes (Instructed to call 911 DOMENICO if feeling sick or withdrawal symptoms)
[2019-01-20] MEDS ORDERED: chlordiazePOXIDE HCL 10 MG CAPSULE PO SCH (17:00)
== END 2019-01-20 14:25 | disposition left against medical advice (07) | DRG 770 ==
LOC: YASAS 13:09 → Y6N 16:35
PROVIDERS: ADMIT Surgery; ATTEND Surgery
PROC: HZ2ZZZZ Detoxification Services for Substance Abuse Treatment (ICD-10-PCS; principal; 2019-01-17)
DX: F10.230 Alcohol dependence with withdrawal, uncomplicated (principal); F14.20 Cocaine dependence, uncomplicated; F17.210 Nicotine dependence, cigarettes, uncomplicated; F31.9 Bipolar disorder, unspecified; E11.9 Type 2 diabetes mellitus without complications; Z91.018 Allergy to other foods; Z88.3 Allergy status to other anti-infective agents
CPT/HCPCS: 36415; 80053; 81025; 82962; 85027; 86593

== ENCOUNTER 2019-03-20 14:59 | Inpatient (IN) | payer OTHER ==
[2019-03-20 17:28] VITALS: BMI 21.7
--- NOTE | 2019-03-20 19:48 | HP ---
"CIWA Score Nausea/Vomitin (w/ cramping) Muscle Tremors: 4-Moderate,w/Arms Extend Anxiety: 4-Mod. Anxious/Guarded Agitation: 3 Paroxysmal Sweats: 3 (Increased facial mositure) Orientation: 0-Oriented Tacttile Disturbances: 0-None Auditory Disturbances: 0-None Visual Disturbances: 0-None Headache: 0-None Present CIWA-Ar Total Score: 17 - Admission Criteria OASAS Guidelines: Admission for Medically Managed Detox: Requires at least one of the followin. CIWA greater than 12 2. Seizures within the past 24 hours 3. Delirium tremens within the past 24 hours 4. Hallucinations within the past 24 hours 5. Acute intervention needed for co occurring medical disorder 6. Acute intervention needed for co occurring psychiatric disorder 7. Severe withdrawal that cannot be handled at a lower level of care (continued vomiting, continued diarrhea, abnormal vital signs) requiring intravenous medication and/or fluids 8. Patient presents the following: CIWA greater than 12 Admission Criteria Met: Admission criteria met Admission ROS [facility] Chief Complaint: Alcohol withdrawal Allergies/Adverse Reactions: Allergies Allergy/AdvReac Type Severity Reaction Status Date / Time erythromycin base Allergy Severe Hives Verified 03/20/19 17:22 tomato Allergy Severe Hives Verified 03/20/19 17:22 History of Present Illness: 53 yo w/ alcohol withdrawal here requesting detox. States was able to stay sober 2 weeks after last discharge in January. Alcohol use began at age 27. Vodka: 2 pints plus many beers/day denies seizures or blackouts , latest use this morning, current symptoms as above . Cocaine/Crack use began at age 27. Currently $200/day Nicotine use began at age 27: 2 cigs/day Denies seizures, blackouts, or overdoses. PMHx : DM(controlled by diet); Weight loss MHHx : Denies depression. Denies thoughts of harming self or others. Patient Name: Kacey Burnette Date: 1965 Address: [address] [place] [address] Sex: Female Rx Written Rx Dispensed Drug Quantity Days Supply Prescriber Name 11/08/2018 11/12/2018 chlordiazepoxide 10 mg capsule 30 10 Meseret Flores) Search Terms: Kacey Burnette, 1965 Search Date: 03/20/2019 08:14:01 PM States Searched: [place], [place], [place], [place], [place], [place], [place], [place] The Drug Utilization Report below displays the controlled substance prescriptions, if any, that were dispensed in the indicated state(s). The information displayed on this report is compiled from requests submitted to other states' PMPs, and accurately reflects the information as returned by them. Blank puga indicate data not provided by other state. This report was requested by: Aspen Burnette | Reference #: [id number] Exam Limitations: No Limitations - Ebola screening Have you traveled outside of the country in the last 21 days: No Have you had contact with anyone from an Ebola affected area: No Have you been sick,other than usual withdrawal symptoms: No (Denies measles exposure) Do you have a fever: No - Review of Systems Constitutional: Diaphoresis, Changes in sleep (Difficulty fallinf asleep, sometimes), Unintentional Wgt. Loss EENT: reports: No Symptoms Reported Respiratory: reports: No Symptoms reported Cardiac: reports: No Symptoms Reported GI: reports: Diarrhea (Soft, light brown once this am), Nausea, Abdominal cramping : reports: No Symptoms Reported Musculoskeletal: reports: Back Pain (Intermittent LBP. None at this time.) Integumentary: reports: No Symptoms Reported Neuro: reports: Tremors Endocrine: reports: No Symptoms Reported Hematology: reports: No Symptoms Reported Psychiatric: reports: Judgement Intact, Orientated x3, Agitated, Anxious Patient History - Patient Medical History Hx Anemia: No Hx Asthma: No Hx Chronic Obstructive Pulmonary Disease (COPD): No Hx Cancer: No Hx Cardiac Disorders: No Hx Congestive Heart Failure: No Hx Hypertension: No Hx Hypercholesterolemia: No Hx Pacemaker: No HX Cerebrovascular Accident: No Hx Seizures: No Hx Diabetes: Yes (pt report her took her off metformin) Hx Gastrointestinal Disorders: No Hx Liver Disease: No Hx Genitourinary Disorders: No Hx Sexually Transmitted Disorders: No Hx Renal Disease (ESRD): No Hx Thyroid Disease: No Hx Human Immunodeficiency Virus (HIV): No (07/07 negative) Hx Hepatitis C: No Hx Depression: No Hx Suicide Attempt: No Hx Bipolar Disorder: Yes (on meds) Hx Schizophrenia: No - Patient Surgical History Past Surgical History: Yes Hx Neurologic Surgery: No Hx Cataract Extraction: No Hx Cardiac Surgery: No Hx Lung Surgery: No Hx Breast Surgery: No Hx Breast Biopsy: No Hx Abdominal Surgery: No Hx Appendectomy: No Hx Cholecystectomy: No Hx Genitourinary Surgery: No Hx Section: No Hx Orthopedic Surgery: No Hx Hysterectomy: No Other Surgical History: 1997 RIGHT OVERY REMOVED Anesthesia Reaction: No - PPD History Previous Implant?: Yes Documented Results: Negative w/proof Implanted On Prior [facility] Admission?: Yes Date: 11/01/18 Results: 0.0 mm PPD to be Administered?: No - Reproductive History Patient is a Female of Child Bearing Age (11 -55 yrs old): Yes Last Menstrual Period: 08/29/07 Patient : No - Smoking Cessation Smoking history: Current every day smoker Have you smoked in the past 12 months: Yes Aproximately how many cigarettes per day: 2 Cigars Per Day: 0 Hx Chewing Tobacco Use: No Initiated information on smoking cessation: Yes 'Breaking Loose' booklet given: 03/20/19 - Substance & Tx. History Hx Alcohol Use: Yes Hx Substance Use: Yes Substance Use Type: Alcohol, Cocaine Hx Substance Use Treatment: Yes (DETOX, REHAB) - Substances abused Alcohol Substance route: Oral Frequency: Daily Amount used: VODKA- 2.5 , a lot of beers. Age of first use: 27 Date of last use: 03/20/09 Crack Substance route: Smoking Frequency: Daily Amount used: $200 Age of first use: 27 Date of last use: 03/20/09 Family Disease History - Family Disease History Family Disease History: CA: Mother ( 2017 throat CA ), Other: Father ( KILLED), Mother Admission Physical Exam S - Vital Signs Vital Signs: Vital Signs - 24 hr 03/20/19 03/20/19 17:21 18:26 Temperature 97.0 F L 97.0 F L Pulse Rate 73 73 Respiratory 20 20 Rate Blood Pressure 130/78 130/78 - Physical General Appearance: Yes: Mild Distress, Thin, Tremorous, Irritable, Sweating ( Increased facial moisture), Anxious HEENTM: Yes: EOMI, Hearing grossly Normal, Normocephalic, Normal Voice, JENNIFER, Pharynx Normal, Other (Perforated Nasal Septum) Respiratory: Yes: Lungs Clear (O2 Sat = 98 %), Normal Breath Sounds, No Respiratory Distress Neck: Yes: No masses,lesions,Nodules, Supple Breast: Yes: Breast Exam Deferred Cardiology: Yes: Regular Rhythm, Regular Rate (HR: 68), S1, S2, Murmur Abdominal: Yes: Non Tender, Flat, Soft, Increased Bowel Sounds Genitourinary: Yes: Within Normal Limits Back: Yes: Normal Inspection Musculoskeletal: Yes: full range of Motion, Gait Steady Extremities: Yes: Normal Capillary Refill, Non-Tender, Tremors Neurological: Yes: parlor chaperone II-XII NML intact, Fully Oriented, Alert, Motor Strength 5/5, Normal Mood/Affect Integumentary: Yes: Normal Color, Dry, Warm, Diaphoresis (Increased facial moisture) Lymphatic: Yes: Within Normal Limits - Diagnostic (1) Alcohol dependence with uncomplicated withdrawal Current Visit: Yes Status: Acute (2) Weight loss Current Visit: Yes Status: Chronic (3) Cocaine dependence Current Visit: Yes Status: Chronic Qualifiers: Substance use status: uncomplicated Qualified Code(s): F14.20 - Cocaine dependence, uncomplicated (4) Diabetes mellitus, type 2 Current Visit: No Status: Resolved Qualifiers: Diabetes mellitus marine oil terminal superintendent insulin use: without shelter use Diabetes mellitus complication status: without complication Qualified Code(s): E11.9 - Type 2 diabetes mellitus without complications (5) Perforated nasal septum Current Visit: Yes Status: Chronic (6) Nicotine dependence Current Visit: Yes Status: Chronic Qualifiers: Nicotine product type: cigarettes Substance use status: uncomplicated Qualified Code(s): F17.210 - Nicotine dependence, cigarettes, uncomplicated (7) Murmur, cardiac Current Visit: Yes Status: Suspected Cleared for Admission S - Detox or Rehab [facility] Level of Care: Medically Managed Detox Regimen/Protocol: Librium Claeared for Rehab Admission: No Breathalyzer - Breathalyzer Breathalyzer: 0 Urine Drug Screen - Test Device Lot number: [id number] Expiration date: 12/18/18 - Control Is test valid?: Yes - Results Drug screen NEGATIVE: No Urine drug screen results: CLARISSA-Cocaine, BAR-Barbiturates Inpatient Rehab Admission - Rehab Decision to Admit Inpatient rehab admission?: No"
[2019-03-20] MEDS ORDERED: ACETAMINOPHEN 325 MG TABLET (FP) PO PRN (20:18)
[2019-03-20] MEDS ORDERED: MAGNESIUM HYDROX 2400MG/30ML ORAL SUSPENSION 30 ML CUP PO PRN (20:18)
[2019-03-20] MEDS ORDERED: BISMUTH SUBSALICYLATE 524 MG/30 ML UD PO PRN (20:18)
[2019-03-20] MEDS ORDERED: METHOCARBAMOL 500 MG TABLET PO PRN (20:18)
[2019-03-20] MEDS ORDERED: MAGNESIUM CITRATE 300 ML BOTTLE PO PRN (20:18)
[2019-03-20] MEDS ORDERED: chlordiazePOXIDE HCL 10 MG CAPSULE PO PRN (20:18)
[2019-03-20] MEDS ORDERED: MAG HYDROX/AL HYDROX/SIMETH 30 ML UNIT-DOSE CUP PO PRN (20:18)
[2019-03-20] MEDS ORDERED: NICOTINE POLACRILEX 2 MG GUM BUC PRN (20:18)
[2019-03-20] MEDS ORDERED: IBUPROFEN 400 MG TABLET (FP) PO PRN (20:18)
[2019-03-20] MEDS ORDERED: MENTHOL/PHENOL 1 EACH UD MM PRN (20:18)
[2019-03-20] MEDS: THIAMINE HCL 100 MG TABLET (FP) PO SCH (21:30)
[2019-03-20] MEDS: chlordiazePOXIDE HCL 25 MG CAPSULE PO SCH (21:30)
[2019-03-20] MEDS: MELATONIN 5 MG TABLETS PO PRN (21:31)
[2019-03-21] MEDS: chlordiazePOXIDE HCL 25 MG CAPSULE PO SCH ×3 (05:53→22:10)
[2019-03-21] MEDS ORDERED: PRENATAL VITAMINS W/ FOLIC ACID TABLET (FP) PO SCH (10:00)
[2019-03-21] MEDS ORDERED: cloNIDine HCL 0.1 MG TABLET PO PRN (11:21)
--- NOTE | 2019-03-21 11:21 | PN ---
[facility] CIWA - CIWA Score Nausea/Vomitin-Mild Nausea/No Vomiting Muscle Tremors: 4-Moderate,w/Arms Extend Anxiety: 3 Agitation: 3 Paroxysmal Sweats: 1-Minimal Palms Moist Orientation: 0-Oriented Tacttile Disturbances: 0-None Auditory Disturbances: 0-None Visual Disturbances: 0-None Headache: 1-Very Mild CIWA-Ar Total Score: 13 [facility] Progress Note (SOAP) Subjective: 53 years old female admitted on 03/20/19 for acute alcohol withdrawal sx management denies history of diabetes irritable about bgm begin clonidin 0.1 mg po prn for hypertension Objective: 03/21/19 11:23 Vital Signs Temperature 98.4 F 03/21/19 09:09 Pulse Rate 74 03/21/19 09:09 Respiratory Rate 16 03/21/19 09:09 Blood Pressure 130/84 03/21/19 09:09 O2 Sat by Pulse Oximetry (%) Laboratory Last Values POC Urine HCG, Qual Negative 03/20/19 22:38 03/21/19 11:23 lab pending Assessment: 03/21/19 11:23 alcohol withdrawal sx Plan: continue alcohol detox
[2019-03-21 11:55] LABS: HEMATOCRIT 38.8 % (32.4-45.2); MCH 32.8 pg (25.7-33.7); MCHC 33.4 g/dl (32.0-36.0); MEAN CELL VOLUME 98.1 fl (80-96); MEAN PLT VOLUME 9.9 fl (7.5-11.1); PLATELET COUNT 157 K/MM3 (134-434); RBC 3.96 M/mm3 (3.60-5.2); RDW 13.4 % (11.6-15.6); WHITE BLOOD COUNT 2.6 K/mm3 (4.0-10.0)
[2019-03-21 11:56] LABS: ALBUMIN 3.3 g/dl (3.4-5.0); BILIRUBIN,TOTAL 0.3 mg/dL (0.2-1); BLOOD UREA NITROGEN 13.7 mg/dL (7-18); CALCIUM 9.1 mg/dL (8.5-10.1); CREATININE 0.6 mg/dL (0.55-1.3); TOT PROT 7.6 g/dl (6.4-8.2)
--- NOTE | 2019-03-21 14:08 | EKG ---
Test Reason : Blood Pressure : / mmHG Vent. Rate : 062 BPM Atrial Rate : 062 BPM P-R Int : 176 ms QRS Dur : 094 ms QT Int : 442 ms P-R-T Axes : 067 020 044 degrees QTc Int : 448 ms NORMAL SINUS RHYTHM NORMAL ECG WHEN COMPARED WITH ECG OF 17-AUG-2017 11:26, T WAVE AMPLITUDE HAS INCREASED IN ANTERIOR LEADS Confirmed by BAL SLAUGHTER MD ([id number]) on 03/21/2019 2:07:25 PM Referred By: Confirmed By:BAL SLAUGHTER MD
[2019-03-21] MEDS: ACETAMINOPHEN 325 MG TABLET (FP) PO PRN ×2 (14:11→20:18)
[2019-03-21] MEDS: THIAMINE HCL 100 MG TABLET (FP) PO SCH (22:11)
[2019-03-21] MEDS: MELATONIN 5 MG TABLETS PO PRN (22:11)
[2019-03-22] MEDS: ACETAMINOPHEN 325 MG TABLET (FP) PO PRN (03:53)
[2019-03-22] MEDS ORDERED: chlordiazePOXIDE 5 MG CAPSULE PO SCH (05:00)
[2019-03-22 07:32] VITALS: BP 139/101; PULSE 69; TEMP 96.3
--- NOTE | 2019-03-22 19:13 | PN ---
S CIWA - CIWA Score Nausea/Vomitin Muscle Tremors: 3 Anxiety: 3 Agitation: 2 Paroxysmal Sweats: No Perspiration Orientation: 0-Oriented Tacttile Disturbances: 0-None Auditory Disturbances: 0-None Visual Disturbances: 1-Very Mild Sensitivity Headache: 0-None Present CIWA-Ar Total Score: 11 S Progress Note (SOAP) Subjective: Anxious, tremors, Nausea. Objective: PATIENT A & O X 3, OBSERVED AMBULATING ON UNIT UNASSISTED. IN NO ACUTE DISTRESS. 03/22/19 19:11 Vital Signs Temperature 96.3 F L 03/22/19 07:32 Pulse Rate 69 03/22/19 07:32 Respiratory Rate 18 03/22/19 07:32 Blood Pressure 139/101 H 03/22/19 07:32 O2 Sat by Pulse Oximetry (%) Laboratory Tests 03/20/19 03/21/19 03/21/19 22:38 07:30 07:30 WBC 2.6 L RBC 3.96 Hgb 13.0 Hct 38.8 MCV 98.1 H MCH 32.8 MCHC 33.4 RDW 13.4 Plt Count 157 MPV 9.9 Sodium 144 Potassium 4.0 Chloride 109 H Carbon Dioxide 31 Anion Gap 4 L BUN 13.7 Creatinine 0.6 Est GFR (CKD-EPI)AfAm 122.32 Est GFR (CKD-EPI)NonAf 105.54 Random Glucose 58 L Calcium 9.1 Total Bilirubin 0.3 AST 18 ALT 18 Alkaline Phosphatase 78 Total Protein 7.6 Albumin 3.3 L POC Urine HCG, Qual Negative RPR Titer 03/21/19 07:30 WBC RBC Hgb Hct MCV MCH MCHC RDW Plt Count MPV Sodium Potassium Chloride Carbon Dioxide Anion Gap BUN Creatinine Est GFR (CKD-EPI)AfAm Est GFR (CKD-EPI)NonAf Random Glucose Calcium Total Bilirubin AST ALT Alkaline Phosphatase Total Protein Albumin POC Urine HCG, Qual RPR Titer Nonreactive LABS NOTED. PATIENT HAS HAD LOW WBC LEVEL ON PREVIOUS ADMISSIONS. 03/22/19 19:11 Assessment: 03/22/19 19:12 WITHDRAWAL SYMPTOMS. LEUKOPENIA. Plan: CONTINUE DETOX. INCREASE DAILY PO WATER INTAKE.
--- NOTE | 2019-03-22 19:15 | DS ---
[facility] Detox Discharge Summary Admission Date: 03/20/19 Discharge Date: 03/22/19 - History Present History: Alcohol Dependence, Cocaine Dependence Additional Comments: PATIENT REPROTS THAT SHE HAS A FAMILY EMERGENCY TO ATTEND TO AND THAT SHE DOES NOT WISH TO REMAIN TO COMPLETE DETOX REGIMEN. RISKS OF LEAVING DETOX UNIT AGAINST MEDICAL ADVICE AND PRIOR TO COMPLETION OF DETOX REGIMEN EXPLAINED TO PATIENT. PATIENT ADVISED TO GO IMMEDIATELY TO NEAREST ER SHOULD ANY INTOLERABLE WITHDRAWAL / DETOX SYMPTOMS DEVELOP AT ANY TIME. PATIENT VERBALIZED UNDERSTANDING OF ALL INFORMATION / RECOMMENDATIONS PRESENTED TO HIM PRIOR TO DEPARTURE FROM DETOX UNIT. PATIENT LEFT DETOX UNIT IN STABLE MEDICAL CONDITION. Pertinent Past History: History Of Type II DM, Weight Loss, History Of Perforated Nasal Septum, History Of Cardiac Murmur, Nicotine Dependence, Leukopenia. - Physical Exam Results Vital Signs: Vital Signs Temperature 96.3 F L 03/22/19 07:32 Pulse Rate 69 03/22/19 07:32 Respiratory Rate 18 03/22/19 07:32 Blood Pressure 139/101 H 03/22/19 07:32 O2 Sat by Pulse Oximetry (%) Pertinent Admission Physical Exam Findings: WITHDRAWAL SYMPTOMS. Laboratory Tests 03/20/19 03/21/19 03/21/19 22:38 07:30 07:30 WBC 2.6 L RBC 3.96 Hgb 13.0 Hct 38.8 MCV 98.1 H MCH 32.8 MCHC 33.4 RDW 13.4 Plt Count 157 MPV 9.9 Sodium 144 Potassium 4.0 Chloride 109 H Carbon Dioxide 31 Anion Gap 4 L BUN 13.7 Creatinine 0.6 Est GFR (CKD-EPI)AfAm 122.32 Est GFR (CKD-EPI)NonAf 105.54 Random Glucose 58 L Calcium 9.1 Total Bilirubin 0.3 AST 18 ALT 18 Alkaline Phosphatase 78 Total Protein 7.6 Albumin 3.3 L POC Urine HCG, Qual Negative RPR Titer 03/21/19 07:30 WBC RBC Hgb Hct MCV MCH MCHC RDW Plt Count MPV Sodium Potassium Chloride Carbon Dioxide Anion Gap BUN Creatinine Est GFR (CKD-EPI)AfAm Est GFR (CKD-EPI)NonAf Random Glucose Calcium Total Bilirubin AST ALT Alkaline Phosphatase Total Protein Albumin POC Urine HCG, Qual RPR Titer Nonreactive LABS NOTED. - Medication Discharge Medications: Ambulatory Orders NK [No Known Home Medication] 01/17/19 - Diagnosis (1) Alcohol dependence with uncomplicated withdrawal Status: Acute (2) Leukopenia Status: Acute Qualifiers: Leukopenia type: unspecified Qualified Code(s): D72.819 - Decreased white blood cell count, unspecified (3) Cocaine dependence Status: Chronic Qualifiers: Substance use status: uncomplicated Qualified Code(s): F14.20 - Cocaine dependence, uncomplicated (4) Nicotine dependence Status: Chronic Qualifiers: Nicotine product type: cigarettes Substance use status: uncomplicated Qualified Code(s): F17.210 - Nicotine dependence, cigarettes, uncomplicated (5) Perforated nasal septum Status: Chronic (6) Weight loss Status: Chronic (7) Murmur, cardiac Status: Suspected (8) Diabetes mellitus, type 2 Status: Resolved Qualifiers: Diabetes mellitus ferry terminal agent insulin use: without ferry terminal agent use Diabetes mellitus complication status: without complication Qualified Code(s): E11.9 - Type 2 diabetes mellitus without complications - AMA Did Patient Leave Against Medical Advice: Yes (PT. HAD A FAMILY EMERGENCY AND DID NOT WISH TO COMPLETE DETOX.)
[2019-03-23] MEDS ORDERED: chlordiazePOXIDE HCL 10 MG CAPSULE PO PRN
[2019-03-23] MEDS ORDERED: chlordiazePOXIDE HCL 10 MG CAPSULE PO SCH (05:00)
[2019-03-24] MEDS ORDERED: chlordiazePOXIDE HCL 10 MG CAPSULE PO ONE (05:00)
== END 2019-03-22 08:45 | disposition left against medical advice (07) | DRG 770 ==
LOC: YASAS 14:59 → Y3N 20:17
PROVIDERS: ADMIT Surgery; ATTEND Surgery
PROC: HZ2ZZZZ Detoxification Services for Substance Abuse Treatment (ICD-10-PCS; principal; 2019-03-20)
DX: F10.230 Alcohol dependence with withdrawal, uncomplicated (principal); F14.20 Cocaine dependence, uncomplicated; F17.210 Nicotine dependence, cigarettes, uncomplicated; I10 Essential (primary) hypertension; E11.9 Type 2 diabetes mellitus without complications; J34.89 Other specified disorders of nose and nasal sinuses; R01.1 Cardiac murmur, unspecified; R63.4 Abnormal weight loss; Z68.21 Body mass index [BMI] 21.0-21.9, adult
CPT/HCPCS: 36415; 80053; 81025; 85027; 86593; 93005; 93010

== ENCOUNTER 2019-08-19 13:56 | Inpatient (IN) | payer OTHER ==
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
--- NOTE | 2019-08-19 15:56 | PN ---
Teaching Attending Note Name of Resident: Shana Hernandez ATTENDING PHYSICIAN STATEMENT I saw and evaluated the patient. I reviewed the resident's note and discussed the case with the resident. I agree with the resident's findings and plan as documented. SUBJECTIVE: 53 yo with h/o AUD here for alcohol detox and rehab. Says last drink was at 4 AM , drinks 2 pints/day- says she gets tremulous if she does not drink. OBJECTIVE: Vital Signs - 24 hr 08/19/19 14:29 Temperature 97 F L Pulse Rate 80 Respiratory 18 Rate Blood Pressure 135/82 agitated alert and oriented ASSESSMENT AND PLAN: AUD- moderate AUD detox protocol
[2019-08-19] MEDS ORDERED: chlordiazePOXIDE HCL 10 MG CAPSULE PO PRN (16:06)
[2019-08-19] MEDS ORDERED: MENTHOL/PHENOL 1 EACH UD MM PRN (16:06)
[2019-08-19] MEDS ORDERED: MAGNESIUM HYDROX 2400MG/30ML ORAL SUSPENSION 30 ML CUP PO PRN (16:06)
[2019-08-19] MEDS ORDERED: ACETAMINOPHEN 325 MG TABLET (FP) PO PRN (16:06)
[2019-08-19] MEDS ORDERED: MAGNESIUM CITRATE 300 ML BOTTLE PO PRN (16:06)
[2019-08-19] MEDS ORDERED: hydrOXYzine PAMOATE 25 MG CAPSULE (FP) PO PRN (16:06)
[2019-08-19] MEDS ORDERED: BISMUTH SUBSALICYLATE 524 MG/30 ML UD PO PRN (16:06)
[2019-08-19] MEDS ORDERED: IBUPROFEN 400 MG TABLET (FP) PO PRN (16:06)
[2019-08-19] MEDS ORDERED: MAG HYDROX/AL HYDROX/SIMETH 30 ML UNIT-DOSE CUP PO PRN (16:06)
[2019-08-19] MEDS: ACETAMINOPHEN 325 MG TABLET (FP) PO PRN (19:56)
[2019-08-19] MEDS: MELATONIN 5 MG TABLETS PO PRN (20:28)
[2019-08-19] MEDS: METHOCARBAMOL 500 MG TABLET PO PRN (20:28)
[2019-08-19] MEDS: chlordiazePOXIDE HCL 25 MG CAPSULE PO SCH (20:28)
[2019-08-19] MEDS: THIAMINE HCL 100 MG TABLET (FP) PO SCH (23:06)
[2019-08-20] MEDS: ACETAMINOPHEN 325 MG TABLET (FP) PO PRN (03:53)
[2019-08-20] MEDS: chlordiazePOXIDE HCL 25 MG CAPSULE PO SCH ×3 (06:07→23:50)
[2019-08-20] MEDS: PRENATAL VITAMINS W/ FOLIC ACID TABLET (FP) PO SCH (10:10)
--- NOTE | 2019-08-20 10:57 | PN ---
S CIWA - CIWA Score Nausea/Vomitin-No Nausea/No Vomiting Muscle Tremors: 3 Anxiety: 3 Agitation: 3 Paroxysmal Sweats: 3 Orientation: 0-Oriented Tacttile Disturbances: 0-None Auditory Disturbances: 0-None Visual Disturbances: 0-None Headache: 0-None Present CIWA-Ar Total Score: 12 BHS Progress Note (SOAP) Subjective: stomach cramps diarrhea sweats chills Objective: 08/20/19 10:56 Vital Signs Temperature 97.2 F L 08/20/19 09:25 Pulse Rate 88 08/20/19 09:25 Respiratory Rate 18 08/20/19 09:25 Blood Pressure 122/64 08/20/19 09:25 O2 Sat by Pulse Oximetry (%) Laboratory Tests 08/19/19 15:07 POC Urine HCG, Qual Negative aaox3 ambulating no acute distress Assessment: 08/20/19 10:56 withdrawal sx Plan: continue detox increase fluids pepto prn
[2019-08-20 12:08] LABS: HEMATOCRIT 39.5 % (32.4-45.2); HEMOGLOBIN 12.9 GM/dL (10.7-15.3); MCH 32.4 pg (25.7-33.7); MCHC 32.7 g/dl (32.0-36.0); MEAN PLT VOLUME 10.2 fl (7.5-11.1); PLATELET COUNT 196 K/MM3 (134-434); RBC 3.99 M/mm3 (3.60-5.2); RDW 13.7 % (11.6-15.6); WHITE BLOOD COUNT 2.6 K/mm3 (4.0-10.0)
[2019-08-20 12:21] LABS: ALBUMIN 3.2 g/dl (3.4-5.0); BILIRUBIN,TOTAL 0.4 mg/dL (0.2-1); BLOOD UREA NITROGEN 15.5 mg/dL (7-18); CALCIUM 9.4 mg/dL (8.5-10.1); CREATININE 0.7 mg/dL (0.55-1.3); TOT PROT 7.9 g/dl (6.4-8.2)
[2019-08-20] MEDS: THIAMINE HCL 100 MG TABLET (FP) PO SCH (23:50)
[2019-08-21] MEDS: MELATONIN 5 MG TABLETS PO PRN (02:18)
[2019-08-21] MEDS: METHOCARBAMOL 500 MG TABLET PO PRN (02:18)
[2019-08-21] MEDS: chlordiazePOXIDE 5 MG CAPSULE PO SCH ×3 (05:35→21:45)
--- NOTE | 2019-08-21 09:29 | PN ---
[facility] CIWA - CIWA Score Nausea/Vomitin-Mild Nausea/No Vomiting Muscle Tremors: 2 Anxiety: 2 Agitation: 2 Paroxysmal Sweats: 2 Orientation: 0-Oriented Tacttile Disturbances: 1-Very Mild Itch/Numbness Auditory Disturbances: 0-None Visual Disturbances: 1-Very Mild Sensitivity Headache: 0-None Present CIWA-Ar Total Score: 11 S Progress Note (SOAP) Subjective: c/o foul / fishy vaginal odor and itch since yesterday with difficulty to sit still, c/o of interrupted sleep and chills Objective: 08/21/19 13:45 Vital Signs Temperature 98.6 F 08/21/19 10:17 Pulse Rate 91 H 08/21/19 10:17 Respiratory Rate 20 08/21/19 10:17 Blood Pressure 120/66 08/21/19 10:17 O2 Sat by Pulse Oximetry (%) Laboratory Last Values WBC 2.6 K/mm3 (4.0-10.0) L 08/20/19 07:00 RBC 3.99 M/mm3 (3.60-5.2) 08/20/19 07:00 Hgb 12.9 GM/dL (10.7-15.3) 08/20/19 07:00 Hct 39.5 % (32.4-45.2) 08/20/19 07:00 MCV 99.0 fl (80-96) H 08/20/19 07:00 MCH 32.4 pg (25.7-33.7) 08/20/19 07:00 MCHC 32.7 g/dl (32.0-36.0) 08/20/19 07:00 RDW 13.7 % (11.6-15.6) 08/20/19 07:00 Plt Count 196 K/MM3 (134-434) D 08/20/19 07:00 MPV 10.2 fl (7.5-11.1) 08/20/19 07:00 Sodium 140 mmol/L (136-145) 08/20/19 07:00 Potassium 4.0 mmol/L (3.5-5.1) 08/20/19 07:00 Chloride 107 mmol/L (98-107) 08/20/19 07:00 Carbon Dioxide 28 mmol/L (21-32) 08/20/19 07:00 Anion Gap 5 MMOL/L (8-16) L 08/20/19 07:00 BUN 15.5 mg/dL (7-18) 08/20/19 07:00 Creatinine 0.7 mg/dL (0.55-1.3) 08/20/19 07:00 Est GFR (CKD-EPI)AfAm 116.27 08/20/19 07:00 Est GFR (CKD-EPI)NonAf 100.32 08/20/19 07:00 Random Glucose 55 mg/dL (74-106) L 08/20/19 07:00 Calcium 9.4 mg/dL (8.5-10.1) 08/20/19 07:00 Total Bilirubin 0.4 mg/dL (0.2-1) 08/20/19 07:00 AST 18 U/L (15-37) 08/20/19 07:00 ALT 21 U/L (13-61) 08/20/19 07:00 Alkaline Phosphatase 74 U/L (45-117) 08/20/19 07:00 Total Protein 7.9 g/dl (6.4-8.2) 08/20/19 07:00 Albumin 3.2 g/dl (3.4-5.0) L 08/20/19 07:00 POC Urine HCG, Qual Negative 08/19/19 15:07 RPR Titer Nonreactive (NONREACTIVE) 08/20/19 07:00 Assessment: Aox3 no acute distress full ROM no gait disturbance ambulating in the unit no edema or skin erythema withdrawal sx Plan: d/t pt symptoms tx for trichomoniasis w/ metronidazole po 2g x one done, vag cream x 3 days for vaginal pruritus. Patient to follow up with pill machine operator upon discharge. patietn with hx leukopenia on past admissions repeat CBC Continue detox continue to monitor
[2019-08-21] MEDS ORDERED: metroNIDAZOLE 250 MG TABLET PO ONE (10:08)
[2019-08-21] MEDS: PRENATAL VITAMINS W/ FOLIC ACID TABLET (FP) PO SCH (10:55)
[2019-08-21] MEDS ORDERED: metroNIDAZOLE 0.75% VAGINAL GEL 70 GM TUBE VG SCH ×2 (22:00)
[2019-08-21] MEDS: THIAMINE HCL 100 MG TABLET (FP) PO SCH (22:43)
[2019-08-22] MEDS ORDERED: chlordiazePOXIDE HCL 10 MG CAPSULE PO PRN
[2019-08-22] MEDS: chlordiazePOXIDE HCL 10 MG CAPSULE PO SCH ×2 (05:42→13:13)
[2019-08-22 07:49] VITALS: TEMP 97.9
[2019-08-22 10:19] LABS: BASO % 0.8 % (0-2.0); EOS % 5.4 % (0-4.5); HEMOGLOBIN 12.6 GM/dL (10.7-15.3); LYMPH % 37.4 % (8-40); MCH 32.4 pg (25.7-33.7); MCHC 33.2 g/dl (32.0-36.0); MEAN CELL VOLUME 97.6 fl (80-96); MEAN PLT VOLUME 9.4 fl (7.5-11.1); MONO % 15.8 % (3.8-10.2); NEUT % 40.6 % (42.8-82.8); PLATELET COUNT 158 K/MM3 (134-434); RDW 13.3 % (11.6-15.6); WHITE BLOOD COUNT 2.8 K/mm3 (4.0-10.0)
[2019-08-22] MEDS: PRENATAL VITAMINS W/ FOLIC ACID TABLET (FP) PO SCH (10:20)
[2019-08-22 13:05] VITALS: BP 116/70; PULSE 90
--- NOTE | 2019-08-22 13:56 | DS ---
[facility] Detox Discharge Summary Admission Date: 08/19/19 Discharge Date: 08/22/19 - History Present History: Alcohol Dependence, Cocaine Dependence Additional Comments: Pt is medically cleared and discharged today. Pt has one more day to complete the detox protocol and requested to be discharged today. Pt denies any withdrawal symptoms at the moment. Pt is encouraged to follow-up with an outpatient CD program and also to follow-up with her pmd. Pt verbalized understanding of the information given. Pt is alert and oriented x3 and in no acute respiratory distress. Pertinent Past History: h/o dm, alcohol, and cocaine use disorder. - Physical Exam Results Vital Signs: Vital Signs Temperature 97.9 F 08/22/19 13:04 Pulse Rate 90 08/22/19 13:04 Respiratory Rate 18 08/22/19 13:04 Blood Pressure 116/70 08/22/19 13:04 O2 Sat by Pulse Oximetry (%) Vital Signs 08/22/19 08/22/19 07:46 13:04 Temperature 97.9 F 97.9 F Pulse Rate 75 90 Respiratory 18 18 Rate Blood Pressure 138/90 116/70 Laboratory Last Values WBC 2.8 K/mm3 (4.0-10.0) L 08/22/19 08:00 RBC 3.90 M/mm3 (3.60-5.2) 08/22/19 08:00 Hgb 12.6 GM/dL (10.7-15.3) 08/22/19 08:00 Hct 38.0 % (32.4-45.2) 08/22/19 08:00 MCV 97.6 fl (80-96) H 08/22/19 08:00 MCH 32.4 pg (25.7-33.7) 08/22/19 08:00 MCHC 33.2 g/dl (32.0-36.0) 08/22/19 08:00 RDW 13.3 % (11.6-15.6) 08/22/19 08:00 Plt Count 158 K/MM3 (134-434) 08/22/19 08:00 MPV 9.4 fl (7.5-11.1) 08/22/19 08:00 Absolute Neuts (auto) 1.1 K/mm3 (1.5-8.0) L 08/22/19 08:00 Neutrophils % 40.6 % (42.8-82.8) L 08/22/19 08:00 Lymphocytes % 37.4 % (8-40) D 08/22/19 08:00 Monocytes % 15.8 % (3.8-10.2) H 08/22/19 08:00 Eosinophils % 5.4 % (0-4.5) H 08/22/19 08:00 Basophils % 0.8 % (0-2.0) 08/22/19 08:00 Nucleated RBC % 0 % (0-0) 08/22/19 08:00 Sodium 140 mmol/L (136-145) 08/20/19 07:00 Potassium 4.0 mmol/L (3.5-5.1) 08/20/19 07:00 Chloride 107 mmol/L (98-107) 08/20/19 07:00 Carbon Dioxide 28 mmol/L (21-32) 08/20/19 07:00 Anion Gap 5 MMOL/L (8-16) L 08/20/19 07:00 BUN 15.5 mg/dL (7-18) 08/20/19 07:00 Creatinine 0.7 mg/dL (0.55-1.3) 08/20/19 07:00 Est GFR (CKD-EPI)AfAm 116.27 08/20/19 07:00 Est GFR (CKD-EPI)NonAf 100.32 08/20/19 07:00 Random Glucose 55 mg/dL (74-106) L 08/20/19 07:00 Calcium 9.4 mg/dL (8.5-10.1) 08/20/19 07:00 Total Bilirubin 0.4 mg/dL (0.2-1) 08/20/19 07:00 AST 18 U/L (15-37) 08/20/19 07:00 ALT 21 U/L (13-61) 08/20/19 07:00 Alkaline Phosphatase 74 U/L (45-117) 08/20/19 07:00 Total Protein 7.9 g/dl (6.4-8.2) 08/20/19 07:00 Albumin 3.2 g/dl (3.4-5.0) L 08/20/19 07:00 POC Urine HCG, Qual Negative 08/19/19 15:07 RPR Titer Nonreactive (NONREACTIVE) 08/20/19 07:00 Labs noted. Pertinent Admission Physical Exam Findings: withdrawal symptoms. - Treatment Hospital Course: Detox Protocol Followed, Detoxed Safely, Responded well, Discharged Condition Good - Medication Discharge Medications: Ambulatory Orders NK [No Known Home Medication] 01/17/19 - Diagnosis (1) Alcohol dependence Current Visit: No Status: Acute (2) Alcohol dependence with uncomplicated withdrawal Current Visit: No Status: Acute (3) Cocaine dependence Current Visit: No Status: Chronic Qualifiers: Substance use status: uncomplicated Qualified Code(s): F14.20 - Cocaine dependence, uncomplicated (4) Nicotine dependence Current Visit: No Status: Chronic Qualifiers: Nicotine product type: cigarettes Substance use status: uncomplicated Qualified Code(s): F17.210 - Nicotine dependence, cigarettes, uncomplicated (5) Murmur, cardiac Current Visit: No Status: Suspected (6) Diabetes mellitus, type 2 Current Visit: No Status: Resolved Qualifiers: Diabetes mellitus dumper operator insulin use: without jail use Diabetes mellitus complication status: without complication Qualified Code(s): E11.9 - Type 2 diabetes mellitus without complications - AMA Did Patient Leave Against Medical Advice: No BHS COWS - Scale Resting Pulse: 0= [place] 80 or Below Sweatin= No chills or Flushing Restless Observation: 0= Sits Still Pupil Size: 0= Normal to Room Light Bone or Joint Aches: 1= Mild Discomfort Runny Nose/ Eye Tearin= None GI Upset > 30mins: 0= None Tremor Observation of Outstretched Hands: 0= None Yawning Observation: 0= None Anxiety or Irritability: 1=Feels Anxious/Irritable Goose Flesh Skin: 0=Smooth Skin COWS Score: 2 BHS CIWA - CIWA Score Nausea/Vomitin-No Nausea/No Vomiting Muscle Tremors: None Anxiety: 1-Mildly Anxious Agitation: 0-Normal Activity Paroxysmal Sweats: 1-Minimal Palms Moist Orientation: 0-Oriented Tacttile Disturbances: 0-None Auditory Disturbances: 0-None Visual Disturbances: 0-None Headache: 0-None Present CIWA-Ar Total Score: 2
[2019-08-23] MEDS ORDERED: chlordiazePOXIDE HCL 10 MG CAPSULE PO ONE (05:00)
== END 2019-08-22 14:57 | disposition home or self-care (01) | DRG 774 ==
LOC: YASAS 13:56 → Y6N 16:08
PROVIDERS: ADMIT Allergy & Immunology; ATTEND Allergy & Immunology
PROC: HZ2ZZZZ Detoxification Services for Substance Abuse Treatment (ICD-10-PCS; principal; 2019-08-19)
DX: F10.230 Alcohol dependence with withdrawal, uncomplicated (principal); F14.20 Cocaine dependence, uncomplicated; F17.210 Nicotine dependence, cigarettes, uncomplicated; R01.1 Cardiac murmur, unspecified; E11.9 Type 2 diabetes mellitus without complications; Z88.1 Allergy status to other antibiotic agents; Z91.018 Allergy to other foods
CPT/HCPCS: 36415; 80053; 81025; 85025; 85027; 86593

== ENCOUNTER 2019-10-02 13:56 | Inpatient (IN) | payer OTHER ==
--- NOTE | 2019-10-02 14:57 | BHS.RME ---
Substance Use & Tx History - Substance Use History Alcohol Frequency of use: Daily Substance route: Oral Date of Last Use: 10/02/19 (2 pints Vodka daily, beer: 12 x 16 ounce daily) Cocaine (Crack) Frequency of use: Daily Substance route: Smoking Date of Last Use: 10/02/19 ($200. daily) Cannabis (Synthetic) Frequency of use: More than 3 times per week Substance route: Smoking Date of Last Use: 09/25/19 (1 joint) Nicotine Frequency of use: Daily Substance route: Smoking Date of Last Use: 10/02/19 (5 cigs per day) - Last Treatment Date of last treatment: Jul 2019 Treatment type: Substance Use Disorder ([facility]) Where was last treatment: Detox Physical/Psych/Mental Status - Behavior Eye Contact: Decreased - Cooperativeness Cooperativeness: Cooperative - Thinking Thought Processes: Loosened - Physical Health Problems Is patient presently having any pain?: No Does patient presently have any injuries (include location): No Does patient currently have a fever: No Is patient : No CIWA Nausea/Vomitin-Mild Nausea/No Vomiting Muscle Tremors: 3 Anxiety: 1-Mildly Anxious Agitation: 2 Paroxysmal Sweats: 2 Orientation: 1-Uncertain about Date Tacttile Disturbances: 1-Very Mild Itch/Numbness Auditory Disturbances: 0-None Visual Disturbances: 0-None Headache: 1-Very Mild CIWA-Ar Total Score: 12
--- NOTE | 2019-10-02 16:03 | HP ---
CIWA Score Nausea/Vomitin-No Nausea/No Vomiting (Pt meets admission to detox criteria as she shows poor judgement and lack of insight.) Muscle Tremors: 3 Anxiety: 1-Mildly Anxious Agitation: 2 Paroxysmal Sweats: 2 Orientation: 0-Oriented Tacttile Disturbances: 0-None Auditory Disturbances: 1-Very Mild Visual Disturbances: 0-None Headache: 2-Mild CIWA-Ar Total Score: 11 - Admission Criteria [facility] Guidelines: Admission for Medically Managed Detox: Requires at least one of the followin. CIWA greater than 12 2. Seizures within the past 24 hours 3. Delirium tremens within the past 24 hours 4. Hallucinations within the past 24 hours 5. Acute intervention needed for co occurring medical disorder 6. Acute intervention needed for co occurring psychiatric disorder 7. Severe withdrawal that cannot be handled at a lower level of care (continued vomiting, continued diarrhea, abnormal vital signs) requiring intravenous medication and/or fluids 8. Admitting History and Physical - Past Medical History ...LMP: 08/29/07 ...: No - Smoking History Smoking history: Current every day smoker Have you smoked in the past 12 months: Yes Aproximately how many cigarettes per day: 2 - Alcohol/Substance Use Hx Alcohol Use: Yes Admission ROS BHS - HPI Chief Complaint: This is a 53 year old female with no significant PMH. She presents to the clinic for detoxification from alcohol. Started drinking at the age of 27, last use this morning (vodka 1 pint), drinks 2 pints per day with 3 6-packs of beer. Has had blackouts before, not sure when the last time was, no history of seizures. Endorses previous withdrawals. Started using cocaine at the age of 27, last use this morning, smokes $200 worth of crack cocaine. Uses marijuana, 2gm a week, started using at the age of 27. Last use 1 week ago. ROS: - Headaches - Endorses abdominal cramps - Diffuse muscle pain PMH: None Was admitted at the clinic 08/22/19. PSH: Ectopic Social: Lives in an apartment with her sister, who does not use any substances. Physical Exam: - AOx3 - Eyes: CHANCE, EOMI - Lungs: Clear B/L - CVS: RRR - Abdomen: Soft, non distended, diffuse tenderness in all 4 quadrants - CARDIAC NURSE SPECIALIST: Motor 5/5, sensations intact Allergies/Adverse Reactions: Allergies Allergy/AdvReac Type Severity Reaction Status Date / Time erythromycin base Allergy Severe Hives Verified 10/02/19 15:38 tomato Allergy Severe Hives Verified 10/02/19 15:38 Patient History - Patient Medical History Hx Anemia: No Hx Asthma: No Hx Chronic Obstructive Pulmonary Disease (COPD): No Hx Cancer: No Hx Cardiac Disorders: No Hx Congestive Heart Failure: No Hx Hypertension: No Hx Hypercholesterolemia: No Hx Pacemaker: No HX Cerebrovascular Accident: No Hx Seizures: No Hx Diabetes: No Hx Gastrointestinal Disorders: No Hx Liver Disease: No Hx Genitourinary Disorders: No Hx Sexually Transmitted Disorders: No Hx Renal Disease (ESRD): No Hx Thyroid Disease: No Hx Human Immunodeficiency Virus (HIV): No (07/07 negative) Hx Hepatitis C: No Hx Depression: No Hx Suicide Attempt: No Hx Bipolar Disorder: Yes (on meds) Hx Schizophrenia: No - Patient Surgical History Past Surgical History: Yes Hx Neurologic Surgery: No Hx Cataract Extraction: No Hx Cardiac Surgery: No Hx Lung Surgery: No Hx Breast Surgery: No Hx Breast Biopsy: No Hx Abdominal Surgery: No Hx Appendectomy: No Hx Cholecystectomy: No Hx Genitourinary Surgery: No Hx Section: No Hx Orthopedic Surgery: No Hx Hysterectomy: No Other Surgical History: 1997 RIGHT OVERY REMOVED Anesthesia Reaction: No - PPD History Date: 11/01/18 Results: 0.0 mm - Reproductive History Last Menstrual Period: 08/29/07 Patient : No - Smoking Cessation Smoking history: Current every day smoker Have you smoked in the past 12 months: Yes Aproximately how many cigarettes per day: 2 Cigars Per Day: 0 Hx Chewing Tobacco Use: No Initiated information on smoking cessation: Yes 'Breaking Loose' booklet given: 10/02/19 - Substances abused Alcohol Substance route: Oral Frequency: Daily Amount used: 2 pints of vodka/ 3 to 6 packs of beers. Age of first use: 27 Date of last use: 10/02/19 Cocaine Substance route: Smoking Frequency: Daily Amount used: $ 200 Age of first use: 27 Date of last use: 10/02/19 Marijuana/Hashish Substance route: Smoking Frequency: 1-2 times per week Amount used: 2 grams Age of first use: 27 Date of last use: 02/06/20 Admission Physical Exam BHS - Vital Signs Vital Signs: Vital Signs - 24 hr 10/02/19 15:39 Temperature 97.0 F L Pulse Rate 89 Respiratory 18 Rate Blood Pressure 119/79 Breathalyzer - Breathalyzer Breathalyzer: 0 Urine Drug Screen - Test Device Lot number: [id number] Expiration date: 07/15/21 - Control Is test valid?: Yes - Results Drug screen NEGATIVE: No Urine drug screen results: [facility]-Cocaine Inpatient Rehab Admission - Rehab Decision to Admit Inpatient rehab admission?: No
[2019-10-02] MEDS ORDERED: chlordiazePOXIDE HCL 25 MG CAPSULE PO PRN (16:13)
[2019-10-02] MEDS ORDERED: MELATONIN 5 MG TABLETS PO PRN (16:13)
[2019-10-02] MEDS ORDERED: MENTHOL/PHENOL 1 EACH UD MM PRN (16:13)
[2019-10-02] MEDS ORDERED: MAG HYDROX/AL HYDROX/SIMETH 30 ML UNIT-DOSE CUP PO PRN (16:13)
[2019-10-02] MEDS ORDERED: IBUPROFEN 400 MG TABLET (FP) PO PRN (16:13)
[2019-10-02] MEDS ORDERED: MAGNESIUM HYDROX 2400MG/30ML ORAL SUSPENSION 30 ML CUP PO PRN (16:13)
[2019-10-02] MEDS ORDERED: METHOCARBAMOL 500 MG TABLET PO PRN (16:13)
[2019-10-02] MEDS ORDERED: hydrOXYzine PAMOATE 25 MG CAPSULE (FP) PO PRN (16:13)
[2019-10-02] MEDS ORDERED: ACETAMINOPHEN 325 MG TABLET (FP) PO PRN (16:13)
[2019-10-02] MEDS ORDERED: MAGNESIUM CITRATE 300 ML BOTTLE PO PRN (16:13)
[2019-10-02] MEDS ORDERED: BISMUTH SUBSALICYLATE 524 MG/30 ML UD PO PRN (16:13)
[2019-10-02] MEDS: chlordiazePOXIDE HCL 25 MG CAPSULE PO SCH ×2 (17:57→22:28)
[2019-10-02] MEDS: THIAMINE HCL 100 MG TABLET (FP) PO SCH (22:28)
[2019-10-02] MEDS: ACETAMINOPHEN 325 MG TABLET (FP) PO PRN (22:31)
[2019-10-03] MEDS: chlordiazePOXIDE HCL 25 MG CAPSULE PO SCH ×4 (06:32→22:51)
[2019-10-03 09:45] LABS: HEMATOCRIT 40.2 % (32.4-45.2); HEMOGLOBIN 13.4 GM/dL (10.7-15.3); MCHC 33.3 g/dl (32.0-36.0); MEAN CELL VOLUME 99.3 fl (80-96); MEAN PLT VOLUME 9.8 fl (7.5-11.1); PLATELET COUNT 176 K/MM3 (134-434); RBC 4.04 M/mm3 (3.60-5.2); RDW 13.9 % (11.6-15.6); WHITE BLOOD COUNT 2.4 K/mm3 (4.0-10.0)
[2019-10-03 09:58] LABS: ALBUMIN 3.2 g/dl (3.4-5.0); BILIRUBIN,TOTAL 0.7 mg/dL (0.2-1); BLOOD UREA NITROGEN 13.8 mg/dL (7-18); CALCIUM 9.2 mg/dL (8.5-10.1); CREATININE 0.8 mg/dL (0.55-1.3); POTASSIUM 3.8 mmol/L (3.5-5.1); TOT PROT 7.8 g/dl (6.4-8.2)
[2019-10-03] MEDS: PRENATAL VITAMINS W/ FOLIC ACID TABLET (FP) PO SCH (10:16)
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
[2019-10-03] MEDS: MINERAL OIL/PETROLAT/WATER TOPICAL CREAM 113 GM JAR TP SCH ×2 (15:07→22:52)
[2019-10-03] MEDS: COLLOIDAL OATMEAL 1 BAR EACH TP PRN (16:30)
[2019-10-03] MEDS: THIAMINE HCL 100 MG TABLET (FP) PO SCH (22:51)
[2019-10-04] MEDS: chlordiazePOXIDE HCL 25 MG CAPSULE PO SCH ×3 (05:31→17:07)
[2019-10-04] MEDS: COLLOIDAL OATMEAL 1 BAR EACH TP PRN (07:38)
[2019-10-04] MEDS: PRENATAL VITAMINS W/ FOLIC ACID TABLET (FP) PO SCH (10:51)
[2019-10-04] MEDS: MINERAL OIL/PETROLAT/WATER TOPICAL CREAM 113 GM JAR TP SCH (10:51)
--- NOTE | 2019-10-04 12:19 | PN ---
S CIWA - CIWA Score Nausea/Vomitin-Mild Nausea/No Vomiting Muscle Tremors: 2 Anxiety: 2 Agitation: 2 Paroxysmal Sweats: No Perspiration Orientation: 0-Oriented Tacttile Disturbances: 0-None Auditory Disturbances: 0-None Visual Disturbances: 0-None Headache: 1-Very Mild CIWA-Ar Total Score: 8 S Progress Note (SOAP) Subjective: alert,irritable,anxious,interrupted sleep,pain in back lower,mentioed seen in [place] last weeek brittni arevalo was told to have fluid in the lung Objective: 10/04/19 12:15 Vital Signs Temperature 98.1 F 10/04/19 08:40 Pulse Rate 97 H 10/04/19 08:40 Respiratory Rate 20 10/04/19 08:40 Blood Pressure 120/75 10/04/19 08:40 O2 Sat by Pulse Oximetry (%) Laboratory Last Values WBC 2.4 K/mm3 (4.0-10.0) L 10/03/19 07:30 RBC 4.04 M/mm3 (3.60-5.2) 10/03/19 07:30 Hgb 13.4 GM/dL (10.7-15.3) 10/03/19 07:30 Hct 40.2 % (32.4-45.2) 10/03/19 07:30 MCV 99.3 fl (80-96) H 10/03/19 07:30 MCH 33.0 pg (25.7-33.7) 10/03/19 07:30 MCHC 33.3 g/dl (32.0-36.0) 10/03/19 07:30 RDW 13.9 % (11.6-15.6) 10/03/19 07:30 Plt Count 176 K/MM3 (134-434) 10/03/19 07:30 MPV 9.8 fl (7.5-11.1) 10/03/19 07:30 Sodium 141 mmol/L (136-145) 10/03/19 07:30 Potassium 3.8 mmol/L (3.5-5.1) 10/03/19 07:30 Chloride 108 mmol/L (98-107) H 10/03/19 07:30 Carbon Dioxide 28 mmol/L (21-32) 10/03/19 07:30 Anion Gap 5 MMOL/L (8-16) L 10/03/19 07:30 BUN 13.8 mg/dL (7-18) 10/03/19 07:30 Creatinine 0.8 mg/dL (0.55-1.3) 10/03/19 07:30 Est GFR (CKD-EPI)AfAm 98.93 10/03/19 07:30 Est GFR (CKD-EPI)NonAf 85.36 10/03/19 07:30 Random Glucose 82 mg/dL (74-106) 10/03/19 07:30 Calcium 9.2 mg/dL (8.5-10.1) 10/03/19 07:30 Total Bilirubin 0.7 mg/dL (0.2-1) 10/03/19 07:30 AST 19 U/L (15-37) 10/03/19 07:30 ALT 21 U/L (13-61) 10/03/19 07:30 Alkaline Phosphatase 72 U/L (45-117) 10/03/19 07:30 Total Protein 7.8 g/dl (6.4-8.2) 10/03/19 07:30 Albumin 3.2 g/dl (3.4-5.0) L 10/03/19 07:30 POC Urine HCG, Qual Negative 10/02/19 15:22 RPR Titer Nonreactive (NONREACTIVE) 10/03/19 07:30 10/04/19 12:16 wbc is 2400,leukopenia will repeat in am Assessment: 10/04/19 12:17 withdrawal symptom lung clear bilaterally, no wheezy examination with RN Giulia Vegas in the patient's room,lung clear,no deformity,pain in lower back ,no definite tenderness 10/04/19 12:20 Plan: continue detox librium regimen,aveeno soap for sensitive skin,chest and lumbar spine xray ordered
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
[2019-10-04] MEDS: ACETAMINOPHEN 325 MG TABLET (FP) PO PRN (17:10)
[2019-10-04 18:01] VITALS: BP 118/84; PULSE 91; TEMP 98.6
--- NOTE | 2019-10-04 20:48 | PN ---
S Progress Note Note: pt refused to speak with keno writer / runner , states " I just want to go home , why does everyone keep asking me questions " . Declined further evaluation / education / assessment and requested her belongings.
[2019-10-04] MEDS ORDERED: traZODone HCL 50 MG TABLET (FP) PO SCH (22:00)
[2019-10-04] MEDS ORDERED: risperiDONE 0.5 MG TABLET PO SCH (22:00)
[2019-10-05] MEDS ORDERED: chlordiazePOXIDE HCL 10 MG CAPSULE PO PRN
[2019-10-05] MEDS ORDERED: chlordiazePOXIDE HCL 10 MG CAPSULE PO SCH (05:00)
[2019-10-06] MEDS ORDERED: chlordiazePOXIDE HCL 10 MG CAPSULE PO SCH (05:00)
[2019-10-07] MEDS ORDERED: chlordiazePOXIDE HCL 10 MG CAPSULE PO ONE (05:00)
== END 2019-10-04 19:30 | disposition left against medical advice (07) | DRG 770 ==
LOC: YASAS 13:56 → Y3N 16:12
PROVIDERS: ADMIT Allergy & Immunology; ATTEND Allergy & Immunology
PROC: HZ2ZZZZ Detoxification Services for Substance Abuse Treatment (ICD-10-PCS; principal; 2019-10-02)
DX: F10.230 Alcohol dependence with withdrawal, uncomplicated (principal); F14.20 Cocaine dependence, uncomplicated; F12.20 Cannabis dependence, uncomplicated; F17.210 Nicotine dependence, cigarettes, uncomplicated; F19.24 Other psychoactive substance dependence with psychoactive substance-induced mood disorder; F31.9 Bipolar disorder, unspecified; D72.819 Decreased white blood cell count, unspecified; G47.00 Insomnia, unspecified; E11.9 Type 2 diabetes mellitus without complications; G62.9 Polyneuropathy, unspecified; M10.9 Gout, unspecified; Z90.721 Acquired absence of ovaries, unilateral; Z88.1 Allergy status to other antibiotic agents; Z91.018 Allergy to other foods; Z91.410 Personal history of adult physical and sexual abuse; Z91.19 Patient's noncompliance with other medical treatment and regimen
CPT/HCPCS: 36415; 71045-TC-FY; 72100-TC-FY; 80053; 81025; 85027; 86593

== ENCOUNTER 2020-05-01 11:44 | Inpatient (IN) | payer OTHER ==
--- NOTE | 2020-05-01 12:25 | HP ---
CIWA Score Nausea/Vomitin Muscle Tremors: 5 Anxiety: 3 Agitation: 3 Paroxysmal Sweats: 3 Orientation: 0-Oriented Tacttile Disturbances: 0-None Auditory Disturbances: 0-None Visual Disturbances: 1-Very Mild Sensitivity Headache: 2-Mild CIWA-Ar Total Score: 20 - Admission Criteria OASAS Guidelines: Admission for Medically Managed Detox: Requires at least one of the followin. CIWA greater than 12 2. Seizures within the past 24 hours 3. Delirium tremens within the past 24 hours 4. Hallucinations within the past 24 hours 5. Acute intervention needed for co occurring medical disorder 6. Acute intervention needed for co occurring psychiatric disorder 7. Severe withdrawal that cannot be handled at a lower level of care (continued vomiting, continued diarrhea, abnormal vital signs) requiring intravenous medication and/or fluids 8. Admitting History and Physical - Past Medical History ...LMP: 08/29/07 Heme/Onc: Yes: Anemia - Smoking History Smoking history: Current every day smoker Have you smoked in the past 12 months: Yes Aproximately how many cigarettes per day: 2 - Alcohol/Substance Use Hx Alcohol Use: Yes History of Substance Use: reports: Cocaine, Marijuana Admission [facility] Allergies/Adverse Reactions: Allergies Allergy/AdvReac Type Severity Reaction Status Date / Time erythromycin base Allergy Severe Hives Verified 05/01/20 12:26 tomato Allergy Severe Hives Verified 05/01/20 12:26 History of Present Illness: 54 year old female with history of alcohol dependence with withdrawals, cannabis use disorder and nicotine dependence. - Substance Use History Alcohol Substance amount: 2 pints vodka + 2 six packs beers Frequency of use: Daily Substance route: Oral Date of Last Use: 05/01/20 (3am) Patient admits to multiple blackouts and last one 1 week ago, and endorses the need for eye chemistry lecturer daily Cocaine-Crack Substance amount: $300 Frequency of use: Daily Substance route: Smoking Date of Last Use: 05/01/20 Marijuana/Hashish Substance amount: 2 grams Frequency of use: Less than 3 times per week Substance route: Smoking Date of Last Use: 04/30/20 Nicotine Substance amount: 4 ciggs Frequency of use: Daily Substance route: Smoking Date of Last Use: 05/01/20 PMH: None Psurg: Ectopic 1997 Psych: H/O Bipolar on no meds CIWA=20 RAMILA=0 She is homeless and living on the streets and has no legal issues pending. She meets criteria for detox as she has multiple failures to cease on her own a nd has a poor recovery environment. She is willing to sign behavioral contract to complete detox this admission. Exam Limitations: No Limitations - Ebola screening Have you traveled outside of the country in the last 21 days: No Have you had contact with anyone from an Ebola affected area: No Have you been sick,other than usual withdrawal symptoms: No Do you have a fever: No Patient History - Patient Medical History Hx Anemia: No Hx Asthma: No Hx Chronic Obstructive Pulmonary Disease (COPD): No Hx Cancer: No Hx Cardiac Disorders: No Hx Congestive Heart Failure: No Hx Hypertension: No Hx Hypercholesterolemia: No Hx Pacemaker: No HX Cerebrovascular Accident: No Hx Seizures: No Hx Diabetes: No Hx Gastrointestinal Disorders: No Hx Liver Disease: No Hx Genitourinary Disorders: No Hx Sexually Transmitted Disorders: No Hx Renal Disease (ESRD): No Hx Thyroid Disease: No Hx Human Immunodeficiency Virus (HIV): No (10/2019 negative) Hx Hepatitis C: No Hx Depression: No Hx Suicide Attempt: No Hx Bipolar Disorder: Yes (on no medications) Hx Schizophrenia: No - Patient Surgical History Past Surgical History: Yes Hx Neurologic Surgery: No Hx Cataract Extraction: No Hx Cardiac Surgery: No Hx Lung Surgery: No Hx Breast Surgery: No Hx Breast Biopsy: No Hx Abdominal Surgery: No Hx Appendectomy: No Hx Cholecystectomy: No Hx Genitourinary Surgery: No Hx Section: No Hx Orthopedic Surgery: No Hx Hysterectomy: No Other Surgical History: 1997 RIGHT OVERY REMOVEDfor ectopic Anesthesia Reaction: No - PPD History Date: 11/08/19 Results: 0.0 mm - Reproductive History Last Menstrual Period: 08/29/07 - Smoking Cessation Smoking history: Current every day smoker Have you smoked in the past 12 months: Yes Aproximately how many cigarettes per day: 2 Cigars Per Day: 0 Hx Chewing Tobacco Use: No Initiated information on smoking cessation: Yes 'Breaking Loose' booklet given: 05/01/20 - Substances abused Alcohol Substance route: Oral Frequency: Daily Amount used: 2 pints vodka plust 2 six pack beers Age of first use: 27 Date of last use: 05/01/20 (3am) Crack Other (specify): $300 Substance route: Smoking Frequency: Daily Amount used: $300 Age of first use: 27 Date of last use: 04/30/20 Marijuana/Hashish Substance route: Smoking Frequency: 1-2 times per week Amount used: 1 gram Age of first use: 27 Date of last use: 05/01/20 Admission Physical Exam S - Physical General Appearance: Yes: Mild Distress, Thin, Tremorous, Irritable, Sweating, Anxious HEENTM: Yes: EOMI, Hearing grossly Normal, Normal ENT Inspection, Normocephalic, Normal Voice, JENNIFER, Pharynx Normal, Tm's normal Respiratory: Yes: Chest Non-Tender, Lungs Clear, Normal Breath Sounds, No Respiratory Distress, No Accessory Muscle Use Neck: Yes: No masses,lesions,Nodules, Supple, Trachea in good position Breast: Yes: Within Normal Limits Cardiology: Yes: Regular Rhythm, Regular Rate, S1, S2 Abdominal: Yes: Normal Bowel Sounds, Non Tender, Flat, Soft Genitourinary: Yes: Within Normal Limits Back: Yes: Normal Inspection Musculoskeletal: Yes: full range of Motion, Gait Steady, Pelvis Stable Extremities: Yes: Normal Capillary Refill, Normal Inspection, Normal Range of Motion, Non-Tender Neurological: Yes: licensed marine engineer II-XII NML intact, Fully Oriented, Alert, Motor Strength 5/5, Normal Mood/Affect, Normal Response Integumentary: Yes: Normal Color, Dry, Warm Lymphatic: Yes: Within Normal Limits - Diagnostic (1) Alcohol dependence with uncomplicated withdrawal Current Visit: Yes Status: Acute (2) Anxiety and depression Current Visit: Yes Status: Acute (3) Bipolar disorder Current Visit: Yes Status: Chronic Qualifiers: Active/Remission status: remission status unspecified Qualified Code(s): F31.9 - Bipolar disorder, unspecified (4) Cocaine dependence Current Visit: Yes Status: Chronic Qualifiers: Substance use status: uncomplicated Qualified Code(s): F14.20 - Cocaine dependence, uncomplicated (5) Insomnia Current Visit: Yes Status: Chronic Qualifiers: Insomnia type: unspecified Qualified Code(s): G47.00 - Insomnia, unspecified (6) Nicotine dependence Current Visit: Yes Status: Chronic Qualifiers: Nicotine product type: cigarettes Substance use status: uncomplicated Qualified Code(s): F17.210 - Nicotine dependence, cigarettes, uncomplicated (7) Weight loss Current Visit: Yes Status: Chronic Breathalyzer - Breathalyzer Breathalyzer: 0 Vital Signs - Vital Signs Vital signs refused: No Temperature: 96.5 F Temperature source: Oral Pulse Rate: 89 Respiratory Rate: 12 Blood Pressure: 163/98 BP Location: Left Arm Blood Pressure position: Sitting - Height Height: 5 ft 8 in - Weight Weight: 122 lb Weight measurement method: Standing scale - BMI Body Mass Index (BMI): 18.5 - Bowel Function Bowel Movement: No Urine Drug Screen - Test Device Lot number: [id number] Expiration date: 07/15/21 - Control Is test valid?: Yes - Results Drug screen NEGATIVE: No Urine drug screen results: CLARISSA-Cocaine Inpatient Rehab Admission - Rehab Decision to Admit Inpatient rehab admission?: No
[2020-05-01 12:27] VITALS: BMI 18.5
[2020-05-01] MEDS ORDERED: chlordiazePOXIDE HCL 25 MG CAPSULE PO PRN (12:36)
[2020-05-01] MEDS ORDERED: METHOCARBAMOL 500 MG TABLET PO PRN (12:36)
[2020-05-01] MEDS ORDERED: MENTHOL/PHENOL 1 EACH UD MM PRN (12:36)
[2020-05-01] MEDS ORDERED: ONDANSETRON *ODT* 4 MG TABLET SL PRN (12:36)
[2020-05-01] MEDS ORDERED: MAGNESIUM HYDROX 2400MG/30ML ORAL SUSPENSION 30 ML CUP PO PRN (12:36)
[2020-05-01] MEDS ORDERED: IBUPROFEN 400 MG TABLET (FP) PO PRN (12:36)
[2020-05-01] MEDS ORDERED: MAG HYDROX/AL HYDROX/SIMETH 30 ML UNIT-DOSE CUP PO PRN (12:36)
[2020-05-01] MEDS ORDERED: ACETAMINOPHEN 325 MG TABLET (FP) PO PRN (12:36)
[2020-05-01] MEDS ORDERED: MAGNESIUM CITRATE 300 ML BOTTLE PO PRN (12:36)
[2020-05-01] MEDS ORDERED: NICOTINE POLACRILEX 2 MG GUM BUC PRN (12:36)
[2020-05-01] MEDS ORDERED: BISMUTH SUBSALICYLATE 524 MG/30 ML UD PO PRN (12:36)
[2020-05-01] MEDS: PRENATAL VITAMINS W/ FOLIC ACID TABLET (FP) PO SCH (13:20)
[2020-05-01] MEDS: hydrOXYzine PAMOATE 25 MG CAPSULE (FP) PO SCH ×3 (13:20→22:45)
[2020-05-01] MEDS: chlordiazePOXIDE HCL 25 MG CAPSULE PO SCH ×3 (13:20→22:45)
[2020-05-01] MEDS: NICOTINE 7 MG/24 HOURS TOPICAL PATCH TD SCH (13:20)
[2020-05-01 16:42] LABS: HEMATOCRIT 38.5 % (32.4-45.2); MCH 33.1 pg (25.7-33.7); MCHC 33.7 g/dl (32.0-36.0); MEAN PLT VOLUME 9.8 fl (7.5-11.1); PLATELET COUNT 143 K/MM3 (134-434); RBC 3.93 M/mm3 (3.60-5.2); RDW 13.6 % (11.6-15.6); WHITE BLOOD COUNT 6.7 K/mm3 (4.0-10.0)
[2020-05-01 16:49] LABS: ALBUMIN 3.8 g/dl (3.4-5.0); BILIRUBIN,TOTAL 1.1 mg/dL (0.2-1); BLOOD UREA NITROGEN 14.5 mg/dL (7-18); CALCIUM 9.2 mg/dL (8.5-10.1); POTASSIUM 3.8 mmol/L (3.5-5.1); TOT PROT 8.9 g/dl (6.4-8.2)
[2020-05-01] MEDS: MELATONIN 5 MG TABLETS PO SCH (22:45)
[2020-05-01] MEDS: THIAMINE HCL 100 MG TABLET (FP) PO SCH (22:45)
[2020-05-01] MEDS: ACETAMINOPHEN 325 MG TABLET (FP) PO PRN (22:47)
[2020-05-02] MEDS: chlordiazePOXIDE HCL 25 MG CAPSULE PO SCH ×4 (07:22→22:19)
[2020-05-02] MEDS: hydrOXYzine PAMOATE 25 MG CAPSULE (FP) PO SCH ×5 (07:23→22:19)
[2020-05-02] MEDS: ACETAMINOPHEN 325 MG TABLET (FP) PO PRN (07:25)
[2020-05-02] MEDS: PRENATAL VITAMINS W/ FOLIC ACID TABLET (FP) PO SCH (10:59)
[2020-05-02] MEDS: NICOTINE 7 MG/24 HOURS TOPICAL PATCH TD SCH (10:59)
[2020-05-02] MEDS ORDERED: COLLOIDAL OATMEAL 1 BAR EACH TP PRN (11:06)
--- NOTE | 2020-05-02 12:02 | PN ---
S CIWA - CIWA Score Nausea/Vomitin-No Nausea/No Vomiting Muscle Tremors: 3 Anxiety: 3 Agitation: 1-Slight > Activity Paroxysmal Sweats: 2 Orientation: 0-Oriented Tacttile Disturbances: 0-None Auditory Disturbances: 0-None Visual Disturbances: 1-Very Mild Sensitivity Headache: 0-None Present CIWA-Ar Total Score: 10 BHS Progress Note (SOAP) Subjective: Fatigue, Anxious, Sweating. Objective: Patient A & O X 3, Observed Ambulating on Detox Unit Unassisted. 05/02/20 11:59 Vital Signs Temperature 96.9 F L 05/02/20 08:42 Pulse Rate 82 05/02/20 08:42 Respiratory Rate 18 05/02/20 08:42 Blood Pressure 117/81 05/02/20 08:42 O2 Sat by Pulse Oximetry (%) 98 05/02/20 05:37 Laboratory Tests 05/01/20 05/01/20 05/01/20 12:50 12:50 12:50 WBC 6.7 RBC 3.93 Hgb 13.0 Hct 38.5 MCV 98.0 H MCH 33.1 MCHC 33.7 RDW 13.6 Plt Count 143 MPV 9.8 Sodium 136 Potassium 3.8 Chloride 101 Carbon Dioxide 32 Anion Gap 3 L BUN 14.5 Creatinine 1.0 Est GFR (CKD-EPI)AfAm 75.01 Est GFR (CKD-EPI)NonAf 64.72 Random Glucose 103 Calcium 9.2 Total Bilirubin 1.1 H AST 19 ALT 21 Alkaline Phosphatase 83 Total Protein 8.9 H Albumin 3.8 Syphilis Serology Non-reactive COVID-19 ([facility]) 05/01/20 12:50 WBC RBC Hgb Hct MCV MCH MCHC RDW Plt Count MPV Sodium Potassium Chloride Carbon Dioxide Anion Gap BUN Creatinine Est GFR (CKD-EPI)AfAm Est GFR (CKD-EPI)NonAf Random Glucose Calcium Total Bilirubin AST ALT Alkaline Phosphatase Total Protein Albumin Syphilis Serology COVID-19 ([facility]) Not detected Lab Results Noted Assessment: 05/02/20 12:00 WITHDRAWAL SYMPTOMS. Plan: Continue Detox. Increase Daily Oral Water Intake.
--- NOTE | 2020-05-02 12:09 | PN ---
[facility] Progress Note Note: While walking on Detox Unit, Patient reports that she felt weak and attempted to sit on floor herself and leaned against side of nearby door to assist herself in getting to floor slowly. Patient did end up sitting on floor, sitting upright on buttocks. This occurrent was witnessed by Fire Fighters Dispatcher on Floor. Patient denies injury, including to her head, as a result of this occurrence. Patient A & O X 3. No visible sign visualized on Patient's head. VS stable. Patient assisted by staff to chair. Fall Protocol # 2 Implemented as a Precaution. Cane ordered to assist with ambulation on Unit for time being. Will continue to monitor.
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
[2020-05-02] MEDS: MELATONIN 5 MG TABLETS PO SCH (22:19)
[2020-05-02] MEDS: THIAMINE HCL 100 MG TABLET (FP) PO SCH (22:19)
[2020-05-03] MEDS: chlordiazePOXIDE HCL 25 MG CAPSULE PO SCH ×4 (05:28→22:43)
[2020-05-03] MEDS: hydrOXYzine PAMOATE 25 MG CAPSULE (FP) PO SCH ×5 (05:28→22:43)
[2020-05-03] MEDS: NICOTINE 7 MG/24 HOURS TOPICAL PATCH TD SCH (10:31)
[2020-05-03] MEDS: PRENATAL VITAMINS W/ FOLIC ACID TABLET (FP) PO SCH (10:31)
[2020-05-03] MEDS: ACETAMINOPHEN 325 MG TABLET (FP) PO PRN (10:32)
--- NOTE | 2020-05-03 14:46 | PN ---
Psychiatric Progress Note Vital Signs: Vital Signs Period Temp Pulse Resp BP Sys/Pelletier Pulse Ox Last 24 Hr 97.1 F-97.5 F 80-99 16-18 105-135/56-79 96 Date of Session: 05/03/20 Chief Complaint:: " I want my underwear." HPI: Patient admitted to for alcohol, cannabis, crack/cocaine, and nicotine dependence. ROS: Patient laying in bed asleep. Presents as fatigue, tired, but irritable. Current Medications: Active Medications Generic Name Dose Route Start Last Admin Trade Name Freq PRN Reason Stop Dose Admin Acetaminophen 650 mg 05/01/20 12:36 05/03/20 10:32 Tylenol - PO 650 mg Q6H PRN Administration PAIN LEVEL 4 - 6 Acetaminophen 650 mg 05/01/20 12:36 05/01/20 17:32 Tylenol - PO 650 mg Q6H PRN Administration FEVER Al Hydroxide/Mg Hydroxide 30 ml 05/01/20 12:36 Mylanta Oral Suspension - PO Q6H PRN DYSPEPSIA Bismuth Subsalicylate 524 mg 05/01/20 12:36 Pepto-Bismol - PO Q1H PRN DIARRHEA Chlordiazepoxide HCl 25 mg 05/03/20 05:00 05/03/20 10:32 Librium - PO 05/03/20 23:01 25 mg [id number] TRISTAN Administration Chlordiazepoxide HCl 25 mg 05/01/20 12:36 Librium - PO 05/03/20 23:59 Q4H PRN WITHDRAWAL(CONT SUBST) Chlordiazepoxide HCl 10 mg 05/04/20 05:00 Librium - PO 05/04/20 23:01 [id number] TRISTAN Chlordiazepoxide HCl 10 mg 05/05/20 05:00 Librium - PO 05/05/20 17:01 Q12H TRISTAN Chlordiazepoxide HCl 10 mg 05/04/20 00:00 Librium - PO 05/05/20 00:00 Q4H PRN WITHDRAWAL(CONT SUBST) Chlordiazepoxide HCl 10 mg 05/06/20 05:00 Librium - PO 05/06/20 05:01 ONCE@0500 ONE Colloidal Oatmeal 1 applic 05/02/20 11:06 05/02/20 13:18 Aveeno Soap - TP 1 bar DAILY PRN Administration HYGEINE Eucalyptus/Menthol/Phenol/Sorbitol 1 each 05/01/20 12:36 Cepastat Lozenge - MM 05/07/20 12:36 Q4H PRN SORE THROAT Hydroxyzine Pamoate 25 mg 05/01/20 14:00 05/03/20 10:31 Vistaril - PO 05/07/20 12:36 25 mg Q4HWA TRISTAN Administration Ibuprofen 400 mg 05/01/20 12:36 Motrin - PO Q6H PRN PAIN LEVEL 1 - 3 Magnesium Citrate 300 ml 05/01/20 12:36 Citroma - PO Q48H PRN CONSTIPATION Magnesium Hydroxide 30 ml 05/01/20 12:36 Milk Of Magnesia - PO PRN PRN CONSTIPATION Melatonin 5 mg 05/01/20 22:00 05/02/20 22:19 Melatonin PO Not Given HS TRISTAN Methocarbamol 500 mg 05/01/20 12:36 Robaxin - PO 05/07/20 12:36 Q6H PRN MUSCLE SPASMS Nicotine 7 mg 05/01/20 13:00 05/03/20 10:31 Nicoderm Patch - TD Not Given DAILY TRISTAN Nicotine Polacrilex 2 mg 05/01/20 12:36 Nicorette Gum - BUC Q2H PRN NICOTINE REPLACEMENT RX Ondansetron HCl 4 mg 05/01/20 12:36 Zofran Odt - SL Q8H PRN Nausea/Vomiting Multivit/Folic Acid/Iron 1 tab 05/01/20 12:45 05/03/20 10:31 Vitamins (Sjr) - PO 1 tab DAILY TRISTAN Administration Thiamine HCl 100 mg 05/01/20 22:00 05/02/20 22:19 Vitamin B1 - PO 100 mg HS TRISTAN Administration Medication(s) Change(s): No. Current Side Effect: No Lab tests ordered: No Lab tests reviewed: Yes Provider note:: Consultation ordered after nursing wood crew supervisor reported that patient has been irritable on the unit. Upon approach patient was sleeping quietly on her bed. Patient arouseable but remained lethargic and fatigue. Patient became quickly agitated after stating to press writer that her underwear is missing. Patient stated, " I know what i came in with. My underwear is missing." Family Support Specialist attempted to redirect conversation towards her mental health needs and on resuming psychotropic medications but patient refused by stating, " I'm not worried about no psych meds. I want my underwear." Patient irritable while responding to press writer but immediately placed her head back on her pillow and closed her eyes. Patient presents as moderatly sedated, lethargic, not fully cooperative with press writer, and is not willing to discuss her needs of psychotropic medications at this time. Medications will not be ordered at this time due to lack of consent and refusal to discuss her needs for psychiatric medications for mood stabilization. Total face to face time:: 5 Mental Status Exam - Mental Status Exam Alert and Oriented to: Time, Place, Person Cognitive Function: Fair Patient Appearance: Disheveled Mood: Withdrawn, Irritable Affect: Mood Congruent Patient Behavior: Sedated (moderately sedated), Fatigued Speech Pattern: Slurred Voice Loudness: Mildly Loud Thought Process: Goal Oriented Thought Disorder: Not Present Hallucinations: Denies Suicidal Ideation: Denies Homicidal Ideation: Denies Insight/Judgement: Poor Sleep: Fair Appetite: Fair Muscle strength/Tone: Normal Gait/Station: Other (Gait not observed) Psychiatric Treatment Plan - Problem List (1) Substance induced mood disorder Comment: .. (2) Alcohol dependence with uncomplicated withdrawal Comment: .. (3) Cocaine dependence Qualifiers: Substance use status: uncomplicated Qualified Code(s): F14.20 - Cocaine dependence, uncomplicated (4) Nicotine dependence Qualifiers: Nicotine product type: cigarettes Substance use status: uncomplicated Qualified Code(s): F17.210 - Nicotine dependence, cigarettes, uncomplicated
[2020-05-03] MEDS ORDERED: MASKS NR ONE (17:12)
--- NOTE | 2020-05-03 19:18 | PN ---
[facility] CIWA - CIWA Score Nausea/Vomitin-Mild Nausea/No Vomiting Muscle Tremors: 2 Anxiety: 2 Agitation: 2 Paroxysmal Sweats: 2 Orientation: 0-Oriented Tacttile Disturbances: 0-None Auditory Disturbances: 0-None Visual Disturbances: 0-None Headache: 0-None Present CIWA-Ar Total Score: 9 BHS Progress Note (SOAP) Subjective: Back pain, headache, sweating, chills, tremor, interrupted sleep. Pt requesting inpatient rehab and Psych consult Objective: 05/03/20 19:15 Last Vital Signs Temp Pulse Resp BP Pulse Ox 97.5 F L 99 H 18 118/75 96 05/03/20 09:09 05/03/20 09:09 05/03/20 09:09 05/03/20 09:09 05/03/20 04:25 Laboratory Tests 05/01/20 05/01/20 05/01/20 12:50 12:50 12:50 WBC 6.7 RBC 3.93 Hgb 13.0 Hct 38.5 MCV 98.0 H MCH 33.1 MCHC 33.7 RDW 13.6 Plt Count 143 MPV 9.8 Sodium 136 Potassium 3.8 Chloride 101 Carbon Dioxide 32 Anion Gap 3 L BUN 14.5 Creatinine 1.0 Est GFR (CKD-EPI)AfAm 75.01 Est GFR (CKD-EPI)NonAf 64.72 Random Glucose 103 Calcium 9.2 Total Bilirubin 1.1 H AST 19 ALT 21 Alkaline Phosphatase 83 Total Protein 8.9 H Albumin 3.8 Syphilis Serology Non-reactive COVID-19 ([facility]) 05/01/20 12:50 WBC RBC Hgb Hct MCV MCH MCHC RDW Plt Count MPV Sodium Potassium Chloride Carbon Dioxide Anion Gap BUN Creatinine Est GFR (CKD-EPI)AfAm Est GFR (CKD-EPI)NonAf Random Glucose Calcium Total Bilirubin AST ALT Alkaline Phosphatase Total Protein Albumin Syphilis Serology COVID-19 ([facility]) Not detected Labs reviewed: abnormal LFTs Assessment: 05/03/20 19:17 Withdrawal sxs Abnormal LFTs noted Plan: Continue detox Encourage PO water intake Abnormal LFTs: repeat hepatic function panel
[2020-05-03] MEDS: MELATONIN 5 MG TABLETS PO SCH (22:43)
[2020-05-03] MEDS: THIAMINE HCL 100 MG TABLET (FP) PO SCH (22:43)
[2020-05-04] MEDS ORDERED: chlordiazePOXIDE HCL 10 MG CAPSULE PO PRN
[2020-05-04] MEDS: hydrOXYzine PAMOATE 25 MG CAPSULE (FP) PO SCH ×2 (05:24→10:14)
[2020-05-04] MEDS: chlordiazePOXIDE HCL 10 MG CAPSULE PO SCH ×2 (05:24→10:14)
[2020-05-04] MEDS: NICOTINE 7 MG/24 HOURS TOPICAL PATCH TD SCH (10:14)
[2020-05-04] MEDS: PRENATAL VITAMINS W/ FOLIC ACID TABLET (FP) PO SCH (10:14)
[2020-05-04] MEDS ORDERED: hydrOXYzine PAMOATE 25 MG CAPSULE (FP) PO PRN (11:12)
--- NOTE | 2020-05-04 11:14 | PN ---
S CIWA - CIWA Score Nausea/Vomitin-No Nausea/No Vomiting Muscle Tremors: 1-None Visible, but [place] Anxiety: 1-Mildly Anxious Agitation: 1-Slight > Activity Paroxysmal Sweats: No Perspiration Orientation: 0-Oriented Tacttile Disturbances: 0-None Auditory Disturbances: 0-None Visual Disturbances: 0-None Headache: 0-None Present CIWA-Ar Total Score: 3 BHS Progress Note (SOAP) Subjective: restless anxiety interrupted sleep Objective: 05/04/20 11:13 Vital Signs Temperature 96.8 F L 05/04/20 05:44 Pulse Rate 91 H 05/04/20 05:44 Respiratory Rate 05/04/20 05:44 Blood Pressure 130/84 05/04/20 05:44 O2 Sat by Pulse Oximetry (%) 100 05/04/20 05:44 Laboratory Tests 05/01/20 05/01/20 05/01/20 12:50 12:50 12:50 WBC 6.7 RBC 3.93 Hgb 13.0 Hct 38.5 MCV 98.0 H MCH 33.1 MCHC 33.7 RDW 13.6 Plt Count 143 MPV 9.8 Sodium 136 Potassium 3.8 Chloride 101 Carbon Dioxide 32 Anion Gap 3 L BUN 14.5 Creatinine 1.0 Est GFR (CKD-EPI)AfAm 75.01 Est GFR (CKD-EPI)NonAf 64.72 Random Glucose 103 Calcium 9.2 Total Bilirubin 1.1 H AST 19 ALT 21 Alkaline Phosphatase 83 Total Protein 8.9 H Albumin 3.8 Syphilis Serology Non-reactive COVID-19 ([facility]) 05/01/20 12:50 WBC RBC Hgb Hct MCV MCH MCHC RDW Plt Count MPV Sodium Potassium Chloride Carbon Dioxide Anion Gap BUN Creatinine Est GFR (CKD-EPI)AfAm Est GFR (CKD-EPI)NonAf Random Glucose Calcium Total Bilirubin AST ALT Alkaline Phosphatase Total Protein Albumin Syphilis Serology COVID-19 ([facility]) Not detected aaox3 ambulating no acute distress Assessment: 05/04/20 11:14 withdrawals Plan: continue detox
[2020-05-04 11:25] VITALS: BP 132/72; PULSE 95; TEMP 97.1
--- NOTE | 2020-05-04 12:51 | PN ---
S Progress Note Note: pt did not want to continue detox. pt states she wants to go home. Pt was made aware of risk of relapse, seizure, DT, OD and or loss however, pt insisted on leaving and chose to sign out AMA.
--- NOTE | 2020-05-04 12:52 | DS ---
[facility] Detox Discharge Summary Admission Date: 05/01/20 - History Present History: Alcohol Dependence, Cocaine Dependence - Physical Exam Results Vital Signs: Vital Signs Temperature 97.1 F L 05/04/20 09:05 Pulse Rate 95 H 05/04/20 09:05 Respiratory Rate 16 05/04/20 09:05 Blood Pressure 132/72 05/04/20 09:05 O2 Sat by Pulse Oximetry (%) 100 05/04/20 09:05 Pertinent Admission Physical Exam Findings: Vital Signs Temperature 97.1 F L 05/04/20 09:05 Pulse Rate 95 H 05/04/20 09:05 Respiratory Rate 16 05/04/20 09:05 Blood Pressure 132/72 05/04/20 09:05 O2 Sat by Pulse Oximetry (%) 100 05/04/20 09:05 Laboratory Tests 05/01/20 05/01/20 05/01/20 12:50 12:50 12:50 WBC 6.7 RBC 3.93 Hgb 13.0 Hct 38.5 MCV 98.0 H MCH 33.1 MCHC 33.7 RDW 13.6 Plt Count 143 MPV 9.8 Sodium 136 Potassium 3.8 Chloride 101 Carbon Dioxide 32 Anion Gap 3 L BUN 14.5 Creatinine 1.0 Est GFR (CKD-EPI)AfAm 75.01 Est GFR (CKD-EPI)NonAf 64.72 Random Glucose 103 Calcium 9.2 Total Bilirubin 1.1 H AST 19 ALT 21 Alkaline Phosphatase 83 Total Protein 8.9 H Albumin 3.8 Syphilis Serology Non-reactive COVID-19 ([facility]) 05/01/20 12:50 WBC RBC Hgb Hct MCV MCH MCHC RDW Plt Count MPV Sodium Potassium Chloride Carbon Dioxide Anion Gap BUN Creatinine Est GFR (CKD-EPI)AfAm Est GFR (CKD-EPI)NonAf Random Glucose Calcium Total Bilirubin AST ALT Alkaline Phosphatase Total Protein Albumin Syphilis Serology COVID-19 ([facility]) Not detected awake/alert ambulating pt showing s/s of withdrawals with sweats/ shakes/ irritable pt was made aware of the risks of leaving AMA. Pt chose to sign out AMA. - Treatment Hospital Course: Rehab Referral Accepted - Medication Discharge Medications: Ambulatory Orders NK [No Known Home Medication] 10/02/19 - Diagnosis (1) Alcohol dependence with uncomplicated withdrawal Current Visit: Yes Status: Chronic (2) Anxiety and depression Current Visit: Yes Status: Acute (3) Substance induced mood disorder Current Visit: Yes Status: Acute (4) Bipolar disorder Current Visit: Yes Status: Chronic Qualifiers: Active/Remission status: remission status unspecified Qualified Code(s): F31.9 - Bipolar disorder, unspecified (5) Cocaine dependence Current Visit: Yes Status: Chronic Qualifiers: Substance use status: uncomplicated Qualified Code(s): F14.20 - Cocaine dependence, uncomplicated (6) History of bipolar disorder Current Visit: Yes Status: Chronic (7) Insomnia Current Visit: Yes Status: Chronic Qualifiers: Insomnia type: unspecified Qualified Code(s): G47.00 - Insomnia, unspecified (8) Nicotine dependence Current Visit: Yes Status: Chronic Qualifiers: Nicotine product type: cigarettes Substance use status: uncomplicated Qualified Code(s): F17.210 - Nicotine dependence, cigarettes, uncomplicated (9) Non-compliance Current Visit: Yes Status: Chronic (10) Substance induced mood disorder Current Visit: Yes Status: Chronic (11) Weight loss Current Visit: Yes Status: Chronic (12) Leukopenia Current Visit: No Status: Acute Qualifiers: Leukopenia type: unspecified Qualified Code(s): D72.819 - Decreased white blood cell count, unspecified (13) Perforated nasal septum Current Visit: No Status: Chronic (14) Depression (emotion) Current Visit: No Status: Suspected Qualifiers: Depression Type: dysthymia Qualified Code(s): F34.1 - Dysthymic disorder (15) Murmur, cardiac Current Visit: No Status: Suspected (16) Diabetes mellitus, type 2 Current Visit: No Status: Resolved Qualifiers: Diabetes mellitus long term acute care registered nurse insulin use: without longterm use Diabetes mellitus complication status: without complication Qualified Code(s): E11.9 - Type 2 diabetes mellitus without complications - AMA Did Patient Leave Against Medical Advice: Yes
[2020-05-05] MEDS ORDERED: chlordiazePOXIDE HCL 10 MG CAPSULE PO SCH (05:00)
[2020-05-06] MEDS ORDERED: chlordiazePOXIDE HCL 10 MG CAPSULE PO ONE (05:00)
== END 2020-05-04 12:55 | disposition left against medical advice (07) | DRG 770 ==
LOC: YASAS 11:44 → Y6N 12:25
PROVIDERS: ADMIT Allergy & Immunology; ATTEND Allergy & Immunology
PROC: HZ2ZZZZ Detoxification Services for Substance Abuse Treatment (ICD-10-PCS; principal; 2020-05-01)
DX: F10.230 Alcohol dependence with withdrawal, uncomplicated (principal); F14.20 Cocaine dependence, uncomplicated; F17.210 Nicotine dependence, cigarettes, uncomplicated; F19.24 Other psychoactive substance dependence with psychoactive substance-induced mood disorder; F31.9 Bipolar disorder, unspecified; F41.9 Anxiety disorder, unspecified; F34.1 Dysthymic disorder; R63.4 Abnormal weight loss; Z68.1 Body mass index [BMI] 19.9 or less, adult; Z86.2 Personal history of diseases of the blood and blood-forming organs and certain disorders involving the immune mechanism; Z88.1 Allergy status to other antibiotic agents; Z91.018 Allergy to other foods; Z91.19 Patient's noncompliance with other medical treatment and regimen
CPT/HCPCS: 36415; 80053; 81025; 85027; 86780; U0003

== ENCOUNTER 2020-09-23 15:13 | Inpatient (IN) | payer OTHER ==
[2020-09-23 17:03] VITALS: BMI 18.8
[2020-09-23] MEDS ORDERED: MAGNESIUM HYDROX 2400MG/30ML ORAL SUSPENSION 30 ML CUP PO PRN (19:01)
[2020-09-23] MEDS ORDERED: BISMUTH SUBSALICYLATE 524 MG/30 ML UD PO PRN (19:01)
[2020-09-23] MEDS ORDERED: ONDANSETRON *ODT* 4 MG TABLET SL PRN (19:01)
[2020-09-23] MEDS ORDERED: MENTHOL/PHENOL 1 EACH UD MM PRN (19:01)
[2020-09-23] MEDS ORDERED: ACETAMINOPHEN 325 MG TABLET (FP) PO PRN (19:01)
[2020-09-23] MEDS ORDERED: NICOTINE POLACRILEX 2 MG GUM BUC PRN (19:01)
[2020-09-23] MEDS ORDERED: MAG HYDROX/AL HYDROX/SIMETH 30 ML UNIT-DOSE CUP PO PRN (19:01)
[2020-09-23] MEDS ORDERED: MAGNESIUM CITRATE 300 ML BOTTLE PO PRN (19:01)
[2020-09-23] MEDS ORDERED: LORazepam 1 MG TABLET PO PRN (19:01)
[2020-09-23] MEDS: LORazepam 2 MG TABLET PO SCH (22:23)
[2020-09-23] MEDS: hydrOXYzine PAMOATE 25 MG CAPSULE (FP) PO SCH (22:23)
[2020-09-23] MEDS: METHOCARBAMOL 500 MG TABLET PO PRN (22:23)
[2020-09-23] MEDS: THIAMINE HCL 100 MG TABLET (FP) PO SCH (22:23)
[2020-09-23] MEDS: MINERAL OIL/PETROLAT/WATER TOPICAL CREAM 113 GM JAR TP SCH (22:25)
[2020-09-23] MEDS: COLLOIDAL OATMEAL 1 BAR EACH TP PRN (22:25)
[2020-09-23] MEDS: MELATONIN 5 MG TABLETS PO SCH (22:25)
[2020-09-23] MEDS: PRENATAL VITAMINS W/ FOLIC ACID TABLET (FP) PO SCH (22:26)
[2020-09-24] MEDS: IBUPROFEN 400 MG TABLET (FP) PO PRN (04:45)
[2020-09-24] MEDS: LORazepam 2 MG TABLET PO SCH ×4 (04:46→22:10)
[2020-09-24] MEDS: hydrOXYzine PAMOATE 25 MG CAPSULE (FP) PO SCH ×2 (05:28→10:08)
[2020-09-24] MEDS: ACETAMINOPHEN 325 MG TABLET (FP) PO PRN (08:58)
[2020-09-24] MEDS: PRENATAL VITAMINS W/ FOLIC ACID TABLET (FP) PO SCH (10:08)
[2020-09-24] MEDS: NICOTINE 7 MG/24 HOURS TOPICAL PATCH TD SCH (10:08)
[2020-09-24] MEDS: METHOCARBAMOL 500 MG TABLET PO PRN (10:09)
[2020-09-24] MEDS ORDERED: hydrOXYzine PAMOATE 25 MG CAPSULE (FP) PO PRN (11:57)
[2020-09-24 12:30] LABS: HEMATOCRIT 37.6 % (32.4-45.2); HEMOGLOBIN 12.6 GM/dL (10.7-15.3); MCH 32.8 pg (25.7-33.7); MCHC 33.5 g/dl (32.0-36.0); MEAN PLT VOLUME 9.6 fl (7.5-11.1); PLATELET COUNT 172 K/MM3 (134-434); RBC 3.84 M/mm3 (3.60-5.2); RDW 13.1 % (11.6-15.6); WHITE BLOOD COUNT 2.3 K/mm3 (4.0-10.0)
[2020-09-24 12:31] LABS: POTASSIUM 4.4 mmol/L (3.5-5.1)
[2020-09-24 12:43] LABS: ALBUMIN 3.2 g/dl (3.4-5.0); CALCIUM 9.2 mg/dL (8.5-10.1)
[2020-09-24 12:44] LABS: CREATININE 0.7 mg/dL (0.55-1.3)
[2020-09-24] MEDS: MINERAL OIL/PETROLAT/WATER TOPICAL CREAM 113 GM JAR TP SCH ×2 (12:44→22:30)
[2020-09-24 12:46] LABS: TOT PROT 7.5 g/dl (6.4-8.2)
[2020-09-24] MEDS: COLLOIDAL OATMEAL 1 BAR EACH TP PRN (17:59)
[2020-09-24] MEDS: THIAMINE HCL 100 MG TABLET (FP) PO SCH (22:10)
[2020-09-24] MEDS: MELATONIN 5 MG TABLETS PO SCH (22:10)
[2020-09-25] MEDS: ACETAMINOPHEN 325 MG TABLET (FP) PO PRN ×2 (00:40→20:32)
[2020-09-25] MEDS: LORazepam 1 MG TABLET PO SCH ×4 (06:14→22:30)
[2020-09-25] MEDS: PRENATAL VITAMINS W/ FOLIC ACID TABLET (FP) PO SCH (10:24)
[2020-09-25] MEDS: NICOTINE 7 MG/24 HOURS TOPICAL PATCH TD SCH (10:25)
[2020-09-25] MEDS: MINERAL OIL/PETROLAT/WATER TOPICAL CREAM 113 GM JAR TP SCH ×2 (10:26→22:30)
[2020-09-25 10:50] LABS: BASO % 0.5 % (0-2.0); EOS % 5.4 % (0-4.5); HEMATOCRIT 37.9 % (32.4-45.2); HEMOGLOBIN 12.6 GM/dL (10.7-15.3); LYMPH % 39.3 % (8-40); MCH 32.7 pg (25.7-33.7); MCHC 33.3 g/dl (32.0-36.0); MEAN CELL VOLUME 98.3 fl (80-96); MEAN PLT VOLUME 9.3 fl (7.5-11.1); MONO % 14.5 % (3.8-10.2); NEUT % 40.3 % (42.8-82.8); PLATELET COUNT 170 K/MM3 (134-434); RBC 3.86 M/mm3 (3.60-5.2); RDW 13.2 % (11.6-15.6); WHITE BLOOD COUNT 2.8 K/mm3 (4.0-10.0)
[2020-09-25] MEDS: COLLOIDAL OATMEAL 1 BAR EACH TP PRN (17:33)
[2020-09-25] MEDS: THIAMINE HCL 100 MG TABLET (FP) PO SCH (22:30)
[2020-09-25] MEDS: MELATONIN 5 MG TABLETS PO SCH (22:31)
[2020-09-26] MEDS ORDERED: LORazepam 0.5 MG TABLET PO PRN
[2020-09-26] MEDS: LORazepam 0.5 MG TABLET PO SCH ×4 (05:24→22:26)
[2020-09-26 10:26] LABS: BASO % 1.1 % (0-2.0); EOS % 6.9 % (0-4.5); HEMATOCRIT 37.8 % (32.4-45.2); HEMOGLOBIN 12.5 GM/dL (10.7-15.3); LYMPH % 39.5 % (8-40); MCH 32.6 pg (25.7-33.7); MEAN CELL VOLUME 98.8 fl (80-96); MEAN PLT VOLUME 9.4 fl (7.5-11.1); MONO % 15.6 % (3.8-10.2); NEUT % 36.9 % (42.8-82.8); PLATELET COUNT 164 K/MM3 (134-434); RBC 3.82 M/mm3 (3.60-5.2); RDW 12.9 % (11.6-15.6); WHITE BLOOD COUNT 2.4 K/mm3 (4.0-10.0)
[2020-09-26] MEDS: PRENATAL VITAMINS W/ FOLIC ACID TABLET (FP) PO SCH (10:33)
[2020-09-26] MEDS: MINERAL OIL/PETROLAT/WATER TOPICAL CREAM 113 GM JAR TP SCH ×2 (10:34→21:53)
[2020-09-26] MEDS: NICOTINE 7 MG/24 HOURS TOPICAL PATCH TD SCH (10:34)
[2020-09-26 10:56] LABS: POTASSIUM 4.2 mmol/L (3.5-5.1)
[2020-09-26 10:59] LABS: CALCIUM 9.3 mg/dL (8.5-10.1)
[2020-09-26 11:00] LABS: ALBUMIN 3.4 g/dl (3.4-5.0); BLOOD UREA NITROGEN 11.8 mg/dL (7-18)
[2020-09-26 11:03] LABS: CREATININE 0.7 mg/dL (0.55-1.3)
[2020-09-26 11:04] LABS: BILIRUBIN,TOTAL 0.8 mg/dL (0.2-1); TOT PROT 7.9 g/dl (6.4-8.2)
[2020-09-26] MEDS: THIAMINE HCL 100 MG TABLET (FP) PO SCH (21:51)
[2020-09-26] MEDS: MELATONIN 5 MG TABLETS PO SCH (21:53)
[2020-09-26] MEDS: ACETAMINOPHEN 325 MG TABLET (FP) PO PRN (22:28)
[2020-09-27] MEDS ORDERED: LORazepam 0.5 MG TABLET PO ONE (05:00)
[2020-09-27] MEDS: PRENATAL VITAMINS W/ FOLIC ACID TABLET (FP) PO SCH (10:17)
[2020-09-27] MEDS: MINERAL OIL/PETROLAT/WATER TOPICAL CREAM 113 GM JAR TP SCH ×2 (10:17→22:17)
[2020-09-27] MEDS: NICOTINE 7 MG/24 HOURS TOPICAL PATCH TD SCH (10:18)
[2020-09-27] MEDS: ACETAMINOPHEN 325 MG TABLET (FP) PO PRN (17:53)
[2020-09-27] MEDS: THIAMINE HCL 100 MG TABLET (FP) PO SCH (22:16)
[2020-09-27] MEDS: MELATONIN 5 MG TABLETS PO SCH (22:16)
[2020-09-28] MEDS: ACETAMINOPHEN 325 MG TABLET (FP) PO PRN (04:16)
[2020-09-28] MEDS: COLLOIDAL OATMEAL 1 BAR EACH TP PRN (05:59)
[2020-09-28] MEDS: IBUPROFEN 400 MG TABLET (FP) PO PRN (08:31)
[2020-09-28] MEDS: MINERAL OIL/PETROLAT/WATER TOPICAL CREAM 113 GM JAR TP SCH (09:16)
[2020-09-28] MEDS: PRENATAL VITAMINS W/ FOLIC ACID TABLET (FP) PO SCH (09:17)
[2020-09-28] MEDS: NICOTINE 7 MG/24 HOURS TOPICAL PATCH TD SCH (09:17)
[2020-09-28 09:19] VITALS: PULSE 64
[2020-09-28 13:06] VITALS: BP 122/77; TEMP 97.3
== END 2020-09-28 13:11 | disposition home or self-care (01) | DRG 774 ==
LOC: YASAS 15:13 → Y3N 17:47
PROVIDERS: ADMIT Allergy & Immunology; ATTEND Allergy & Immunology
PROC: HZ2ZZZZ Detoxification Services for Substance Abuse Treatment (ICD-10-PCS; principal; 2020-09-23)
DX: F10.230 Alcohol dependence with withdrawal, uncomplicated (principal); F14.20 Cocaine dependence, uncomplicated; F17.210 Nicotine dependence, cigarettes, uncomplicated; F19.24 Other psychoactive substance dependence with psychoactive substance-induced mood disorder; F31.9 Bipolar disorder, unspecified; F34.1 Dysthymic disorder; F41.9 Anxiety disorder, unspecified; D72.819 Decreased white blood cell count, unspecified; G47.00 Insomnia, unspecified; J34.89 Other specified disorders of nose and nasal sinuses; R01.1 Cardiac murmur, unspecified; R63.4 Abnormal weight loss; Z68.1 Body mass index [BMI] 19.9 or less, adult; Z88.1 Allergy status to other antibiotic agents; Z91.018 Allergy to other foods; Z91.19 Patient's noncompliance with other medical treatment and regimen
CPT/HCPCS: 36415; 80053; 81025; 82962; 85025; 85027; 86780; C9803; U0003

== ENCOUNTER 2022-05-23 15:42 | Inpatient (IN) | payer OTHER ==
[2022-05-23 17:37] VITALS: BMI 18.2
[2022-05-23] MEDS ORDERED: BISMUTH SUBSALICYLATE 524 MG/30 ML PO PRN (18:15)
[2022-05-23] MEDS ORDERED: METHOCARBAMOL 500 MG TABLET PO PRN (18:15)
[2022-05-23] MEDS ORDERED: IBUPROFEN 400 MG TABLET (FP) PO PRN (18:15)
[2022-05-23] MEDS ORDERED: MAGNESIUM HYDROX 2400MG/30ML ORAL SUSPENSION 30 ML CUP PO PRN (18:15)
[2022-05-23] MEDS ORDERED: IBUPROFEN 600 MG TABLET (FP) PO PRN (18:15)
[2022-05-23] MEDS ORDERED: MAG HYDROX/AL HYDROX/SIMETH 30 ML UNIT-DOSE CUP PO PRN (18:15)
[2022-05-23] MEDS ORDERED: ONDANSETRON *ODT* 4 MG TABLET SL PRN (18:15)
[2022-05-23] MEDS ORDERED: MAGNESIUM CITRATE 300 ML BOTTLE PO PRN (18:15)
[2022-05-23] MEDS ORDERED: DICYCLOMINE HCL 10 MG CAPSULE PO PRN (18:15)
[2022-05-23] MEDS ORDERED: ACETAMINOPHEN 325 MG TABLET (FP) PO PRN ×2 (18:15)
[2022-05-23] MEDS ORDERED: LOPERAMIDE HCL 2 MG CAPSULE PO PRN (18:15)
[2022-05-23] MEDS ORDERED: NALOXONE HCL (KLOXXADO) 8 MG SPRAY NS PRN (18:15)
[2022-05-23] MEDS ORDERED: BENZOCAINE/MENTHOL (CHLORASEPTIC ) LOZENGE MM PRN (18:15)
[2022-05-23] MEDS ORDERED: NICOTINE 10 MG CARTRIDGE (INHALER) IH PRN (18:15)
[2022-05-23] MEDS: COLLOIDAL OATMEAL 1 BAR EACH TP PRN (22:33)
[2022-05-23] MEDS: THIAMINE HCL 100 MG TABLET (FP) PO SCH (22:33)
[2022-05-23] MEDS: MELATONIN 5 MG TABLETS PO SCH (22:33)
[2022-05-23] MEDS: PRENATAL VITAMINS W/ FOLIC ACID TABLET (FP) PO SCH (22:33)
[2022-05-23] MEDS: hydrOXYzine PAMOATE 25 MG CAPSULE (FP) PO SCH (22:33)
[2022-05-24] MEDS: hydrOXYzine PAMOATE 25 MG CAPSULE (FP) PO SCH ×5 (06:39→22:32)
[2022-05-24] MEDS ORDERED: ALBUTEROL SO4 HFA INHALER IH PRN (09:22)
[2022-05-24] MEDS ORDERED: chlordiazePOXIDE HCL 25 MG CAPSULE PO PRN (09:32)
[2022-05-24] MEDS: PRENATAL VITAMINS W/ FOLIC ACID TABLET (FP) PO SCH (10:43)
[2022-05-24] MEDS: chlordiazePOXIDE HCL 25 MG CAPSULE PO SCH ×3 (10:43→22:35)
[2022-05-24] MEDS: NICOTINE 14 MG/24 HOURS TOPICAL PATCH TD SCH (10:45)
[2022-05-24 11:19] LABS: HEMATOCRIT 41.1 % (32.4-45.2); HEMOGLOBIN 13.5 GM/dL (10.7-15.3); MCH 32.7 pg (25.7-33.7); MCHC 32.8 g/dl (32.0-36.0); MEAN CELL VOLUME 99.6 fl (80-96); MEAN PLT VOLUME 9.3 fl (7.5-11.1); PLATELET COUNT 158 10^3/uL (134-434); RBC 4.13 M/mm3 (3.60-5.2); RDW 13.2 % (11.6-15.6); WHITE BLOOD COUNT 2.5 K/mm3 (4.0-10.0)
[2022-05-24 11:31] LABS: CALCIUM 9.5 mg/dL (8.5-10.1)
[2022-05-24 11:33] LABS: ALBUMIN 3.2 g/dl (3.4-5.0); BLOOD UREA NITROGEN 14.6 mg/dL (7-18); CREATININE 0.7 mg/dL (0.55-1.3)
[2022-05-24 11:35] LABS: BILIRUBIN,TOTAL 0.3 mg/dL (0.2-1); TOT PROT 7.4 g/dl (6.4-8.2)
[2022-05-24] MEDS ORDERED: risperiDONE 1 MG TABLET PO SCH ×2 (22:00)
[2022-05-24] MEDS: THIAMINE HCL 100 MG TABLET (FP) PO SCH (22:32)
[2022-05-24] MEDS: MELATONIN 5 MG TABLETS PO SCH (22:32)
[2022-05-24] MEDS: risperiDONE 1 MG TABLET PO SCH (22:32)
[2022-05-25] MEDS: COLLOIDAL OATMEAL 1 BAR EACH TP PRN (07:38)
[2022-05-25] MEDS: chlordiazePOXIDE HCL 25 MG CAPSULE PO SCH ×4 (07:40→22:36)
[2022-05-25] MEDS: hydrOXYzine PAMOATE 25 MG CAPSULE (FP) PO SCH ×5 (07:40→22:33)
[2022-05-25] MEDS: risperiDONE 1 MG TABLET PO SCH ×2 (11:10→22:34)
[2022-05-25] MEDS: PRENATAL VITAMINS W/ FOLIC ACID TABLET (FP) PO SCH (11:11)
[2022-05-25] MEDS: NICOTINE 14 MG/24 HOURS TOPICAL PATCH TD SCH (11:17)
[2022-05-25] MEDS: THIAMINE HCL 100 MG TABLET (FP) PO SCH (22:33)
[2022-05-25] MEDS: MELATONIN 5 MG TABLETS PO SCH (22:35)
[2022-05-26] MEDS: hydrOXYzine PAMOATE 25 MG CAPSULE (FP) PO SCH ×3 (05:57→14:11)
[2022-05-26] MEDS: chlordiazePOXIDE HCL 25 MG CAPSULE PO SCH ×3 (05:58→16:41)
[2022-05-26] MEDS: risperiDONE 1 MG TABLET PO SCH (11:19)
[2022-05-26] MEDS: NICOTINE 14 MG/24 HOURS TOPICAL PATCH TD SCH (11:19)
[2022-05-26] MEDS: PRENATAL VITAMINS W/ FOLIC ACID TABLET (FP) PO SCH (11:22)
[2022-05-26] MEDS ORDERED: hydrOXYzine PAMOATE 25 MG CAPSULE (FP) PO PRN (14:28)
[2022-05-26] MEDS: COLLOIDAL OATMEAL 1 BAR EACH TP PRN (16:10)
[2022-05-26 17:20] VITALS: BP 126/86; PULSE 96; RESP 18; TEMP 97.1
[2022-05-27] MEDS ORDERED: chlordiazePOXIDE HCL 10 MG CAPSULE PO PRN
[2022-05-27] MEDS ORDERED: chlordiazePOXIDE HCL 10 MG CAPSULE PO SCH (05:00)
[2022-05-28] MEDS ORDERED: chlordiazePOXIDE HCL 10 MG CAPSULE PO SCH (05:00)
[2022-05-29] MEDS ORDERED: chlordiazePOXIDE HCL 10 MG CAPSULE PO ONE (05:00)
== END 2022-05-26 17:59 | disposition left against medical advice (07) | DRG 770 ==
LOC: YASAS 15:42 → Y3N 19:00
PROVIDERS: ADMIT Allergy & Immunology; ATTEND Surgery
PROC: HZ2ZZZZ Detoxification Services for Substance Abuse Treatment (ICD-10-PCS; principal; 2022-05-23)
DX: F10.230 Alcohol dependence with withdrawal, uncomplicated (principal); F14.20 Cocaine dependence, uncomplicated; F12.10 Cannabis abuse, uncomplicated; F17.213 Nicotine dependence, cigarettes, with withdrawal; F19.24 Other psychoactive substance dependence with psychoactive substance-induced mood disorder; F31.9 Bipolar disorder, unspecified; G62.9 Polyneuropathy, unspecified; E11.9 Type 2 diabetes mellitus without complications; R26.89 Other abnormalities of gait and mobility; Z99.89 Dependence on other enabling machines and devices; Z88.1 Allergy status to other antibiotic agents; Z56.0 Unemployment, unspecified; Z59.00 Homelessness unspecified
CPT/HCPCS: 36415; 80053; 81025; 85027; 86780; 87811; C9803-CS; J2794; U0003; U0005

== ENCOUNTER 2022-09-08 13:51 | Inpatient (IN) | payer OTHER ==
[2022-09-08 15:07] VITALS: BMI 18.2
[2022-09-08] MEDS ORDERED: POLYETHYLENE GLYCOL (HEALTHYLAX) 3350 17 GM PACKET PO PRN (17:01)
[2022-09-08] MEDS ORDERED: NALOXONE HCL (KLOXXADO) 8 MG SPRAY NS PRN (17:01)
[2022-09-08] MEDS ORDERED: MAGNESIUM HYDROX 2400MG/30ML ORAL SUSPENSION 30 ML CUP PO PRN (17:01)
[2022-09-08] MEDS ORDERED: ACETAMINOPHEN 325 MG TABLET (FP) PO PRN ×2 (17:01)
[2022-09-08] MEDS ORDERED: IBUPROFEN 400 MG TABLET (FP) PO PRN (17:01)
[2022-09-08] MEDS ORDERED: chlordiazePOXIDE HCL 25 MG CAPSULE PO PRN (17:01)
[2022-09-08] MEDS ORDERED: IBUPROFEN 600 MG TABLET (FP) PO PRN (17:01)
[2022-09-08] MEDS ORDERED: MAG HYDROX/AL HYDROX/SIMETH 30 ML UNIT-DOSE CUP PO PRN (17:01)
[2022-09-08] MEDS ORDERED: ONDANSETRON *ODT* 4 MG TABLET SL PRN (17:01)
[2022-09-08] MEDS ORDERED: BENZOCAINE/MENTHOL (CHLORASEPTIC ) LOZENGE MM PRN (17:01)
[2022-09-08] MEDS ORDERED: NICOTINE 10 MG CARTRIDGE (INHALER) IH PRN (17:01)
[2022-09-08] MEDS ORDERED: BISMUTH SUBSALICYLATE 524 MG/30 ML PO PRN (17:01)
[2022-09-08] MEDS ORDERED: LOPERAMIDE HCL 2 MG CAPSULE PO PRN (17:01)
[2022-09-08] MEDS ORDERED: ALBUTEROL SO4 HFA INHALER IH PRN (18:07)
[2022-09-08] MEDS: MELATONIN 5 MG TABLETS PO SCH (22:31)
[2022-09-08] MEDS: THIAMINE HCL 100 MG TABLET (FP) PO SCH (22:31)
[2022-09-08] MEDS: chlordiazePOXIDE HCL 25 MG CAPSULE PO SCH (22:32)
[2022-09-09] MEDS: chlordiazePOXIDE HCL 25 MG CAPSULE PO SCH ×4 (06:13→22:49)
[2022-09-09] MEDS: PRENATAL VITAMINS W/ FOLIC ACID TABLET (FP) PO SCH (10:29)
[2022-09-09] MEDS: COLLOIDAL OATMEAL 1 BAR EACH TP PRN (10:30)
[2022-09-09] MEDS: DICYCLOMINE HCL 10 MG CAPSULE PO PRN ×2 (10:38→22:45)
[2022-09-09] MEDS: MINERAL OIL/PETROLAT/WATER TOPICAL CREAM 113 GM JAR TP SCH (11:39)
[2022-09-09 12:01] LABS: BLOOD UREA NITROGEN 13.7 mg/dL (7-18); HEMATOCRIT 40.4 % (32.4-45.2); HEMOGLOBIN 13.3 GM/dL (10.7-15.3); MCH 32.9 pg (25.7-33.7); MCHC 32.8 g/dl (32.0-36.0); MEAN CELL VOLUME 100.4 fl (80-96); MEAN PLT VOLUME 9.2 fl (7.5-11.1); PLATELET COUNT 184 10^3/uL (134-434); RBC 4.03 M/mm3 (3.60-5.2); RDW 13.8 % (11.6-15.6); WHITE BLOOD COUNT 3.2 K/mm3 (4.0-10.0)
[2022-09-09 12:04] LABS: BILIRUBIN,TOTAL 0.6 mg/dL (0.2-1); CREATININE 0.7 mg/dL (0.55-1.3)
[2022-09-09 12:06] LABS: TOT PROT 7.2 g/dl (6.4-8.2)
[2022-09-09] MEDS: risperiDONE 0.5 MG TABLET PO SCH (22:42)
[2022-09-09] MEDS: MELATONIN 5 MG TABLETS PO SCH (22:42)
[2022-09-09] MEDS: THIAMINE HCL 100 MG TABLET (FP) PO SCH (22:42)
[2022-09-10] MEDS: chlordiazePOXIDE HCL 25 MG CAPSULE PO SCH ×4 (06:31→22:34)
[2022-09-10] MEDS: METHOCARBAMOL 500 MG TABLET PO PRN (10:24)
[2022-09-10] MEDS: PRENATAL VITAMINS W/ FOLIC ACID TABLET (FP) PO SCH (10:24)
[2022-09-10] MEDS: hydrOXYzine PAMOATE 25 MG CAPSULE (FP) PO PRN (10:24)
[2022-09-10] MEDS: MINERAL OIL/PETROLAT/WATER TOPICAL CREAM 113 GM JAR TP SCH (10:25)
[2022-09-10] MEDS: COLLOIDAL OATMEAL 1 BAR EACH TP PRN (10:29)
[2022-09-10] MEDS: THIAMINE HCL 100 MG TABLET (FP) PO SCH (22:28)
[2022-09-10] MEDS: MELATONIN 5 MG TABLETS PO SCH (22:28)
[2022-09-10] MEDS: risperiDONE 0.5 MG TABLET PO SCH (22:28)
[2022-09-11] MEDS ORDERED: chlordiazePOXIDE HCL 10 MG CAPSULE PO PRN
[2022-09-11] MEDS: chlordiazePOXIDE HCL 10 MG CAPSULE PO SCH ×2 (06:29→10:52)
[2022-09-11 06:56] VITALS: RESP 16
[2022-09-11] MEDS: hydrOXYzine PAMOATE 25 MG CAPSULE (FP) PO PRN (10:17)
[2022-09-11] MEDS: PRENATAL VITAMINS W/ FOLIC ACID TABLET (FP) PO SCH (10:17)
[2022-09-11] MEDS: METHOCARBAMOL 500 MG TABLET PO PRN (10:17)
[2022-09-11] MEDS: MINERAL OIL/PETROLAT/WATER TOPICAL CREAM 113 GM JAR TP SCH (10:19)
[2022-09-11 13:35] VITALS: BP 127/78; PULSE 93; TEMP 97.9
[2022-09-11] MEDS ORDERED: chlordiazePOXIDE 5 MG CAPSULE PO SCH (17:00)
[2022-09-12] MEDS ORDERED: chlordiazePOXIDE HCL 10 MG CAPSULE PO SCH (05:00)
[2022-09-13] MEDS ORDERED: chlordiazePOXIDE HCL 10 MG CAPSULE PO ONE (05:00)
== END 2022-09-11 15:50 | disposition left against medical advice (07) | DRG 770 ==
LOC: YASAS 13:51 → Y6N 18:18
PROVIDERS: ADMIT Allergy & Immunology; ATTEND Surgery
PROC: HZ2ZZZZ Detoxification Services for Substance Abuse Treatment (ICD-10-PCS; principal; 2022-09-08)
DX: F10.230 Alcohol dependence with withdrawal, uncomplicated (principal); F14.20 Cocaine dependence, uncomplicated; F17.210 Nicotine dependence, cigarettes, uncomplicated; F31.9 Bipolar disorder, unspecified; F20.9 Schizophrenia, unspecified; J45.20 Mild intermittent asthma, uncomplicated; E11.9 Type 2 diabetes mellitus without complications; R63.4 Abnormal weight loss; Z68.1 Body mass index [BMI] 19.9 or less, adult; Z88.1 Allergy status to other antibiotic agents; Z91.018 Allergy to other foods
CPT/HCPCS: 36415; 80053; 82962; 85027; 86780; C9803-CS; U0003; U0005

== ENCOUNTER 2023-06-29 12:32 | Inpatient (IN) | payer OTHER ==
[2023-06-29 13:15] VITALS: BMI 19.1
[2023-06-29] MEDS ORDERED: ACETAMINOPHEN 325 MG TABLET (FP) PO PRN (13:48)
[2023-06-29] MEDS ORDERED: BENZONATATE 200 MG CAPSULE PO PRN (13:48)
[2023-06-29] MEDS ORDERED: METHOCARBAMOL 500 MG TABLET PO PRN (13:48)
[2023-06-29] MEDS ORDERED: diazePAM 5 MG TABLET PO PRN (13:48)
[2023-06-29] MEDS ORDERED: NALOXONE HCL (KLOXXADO) 8 MG SPRAY NS PRN (13:48)
[2023-06-29] MEDS ORDERED: BISMUTH SUBSALICYLATE 262 MG/15 ML BTL PO PRN (13:48)
[2023-06-29] MEDS ORDERED: POLYETHYLENE GLYCOL (HEALTHYLAX) 3350 17 GM PACKET PO PRN (13:48)
[2023-06-29] MEDS ORDERED: ONDANSETRON *ODT* 4 MG TABLET SL PRN (13:48)
[2023-06-29] MEDS ORDERED: LOPERAMIDE HCL 2 MG CAPSULE PO PRN (13:48)
[2023-06-29] MEDS ORDERED: DICYCLOMINE HCL 10 MG CAPSULE PO PRN (13:48)
[2023-06-29] MEDS ORDERED: BENZOCAINE/MENTHOL (CHLORASEPTIC ) LOZENGE MM PRN (13:48)
[2023-06-29] MEDS ORDERED: hydrOXYzine PAMOATE 25 MG CAPSULE (FP) PO PRN (13:48)
[2023-06-29] MEDS ORDERED: NALOXONE HCL 0.4 MG/ML VIAL IM PRN (13:48)
[2023-06-29] MEDS ORDERED: IBUPROFEN 400 MG TABLET (FP) PO PRN (13:48)
[2023-06-29] MEDS ORDERED: MAGNESIUM HYDROX 2400MG/30ML ORAL SUSPENSION 30 ML CUP PO PRN (13:48)
[2023-06-29] MEDS ORDERED: IBUPROFEN 600 MG TABLET (FP) PO PRN (13:48)
[2023-06-29] MEDS ORDERED: MAG HYDROX/AL HYDROX/SIMETH 30 ML UNIT-DOSE CUP PO PRN (13:48)
[2023-06-29] MEDS ORDERED: guaiFENesin 600 MG TABLET.ER (FP) PO PRN (13:48)
[2023-06-29] MEDS ORDERED: ALBUTEROL SO4 HFA INHALER IH PRN (13:50)
[2023-06-29] MEDS ORDERED: COLLOIDAL OATMEAL 1 BAR EACH TP PRN (13:50)
[2023-06-29] MEDS: PRENATAL VITAMINS W/ FOLIC ACID TABLET (FP) PO SCH (15:21)
[2023-06-29] MEDS: diazePAM 5 MG TABLET PO SCH ×2 (17:58→23:14)
[2023-06-29] MEDS ORDERED: MELATONIN 5 MG TABLETS PO SCH (22:00)
[2023-06-29] MEDS ORDERED: THIAMINE HCL 100 MG TABLET (FP) PO SCH (22:00)
[2023-06-30] MEDS: diazePAM 5 MG TABLET PO SCH ×2 (05:21→10:03)
[2023-06-30 09:29] VITALS: BP 115/62; PULSE 90; RESP 16; TEMP 98.4
[2023-06-30] MEDS: PRENATAL VITAMINS W/ FOLIC ACID TABLET (FP) PO SCH (09:58)
[2023-06-30 12:24] LABS: HEMATOCRIT 35.8 % (32.4-45.2); HEMOGLOBIN 11.3 GM/dL (10.7-15.3); MCH 31.1 pg (25.7-33.7); MCHC 31.5 g/dl (32.0-36.0); MEAN CELL VOLUME 98.6 fl (80-96); MEAN PLT VOLUME 8.6 fl (7.5-11.1); PLATELET COUNT 276 10^3/uL (134-434); RBC 3.63 M/mm3 (3.60-5.2); RDW 13.2 % (11.6-15.6); WHITE BLOOD COUNT 3.4 K/mm3 (4.0-10.0)
[2023-06-30 12:42] LABS: CREATININE 0.7 mg/dL (0.55-1.3)
[2023-06-30 12:43] LABS: ALBUMIN 3.3 g/dl (3.4-5.0); BILIRUBIN,TOTAL 0.4 mg/dL (0.2-1); BLOOD UREA NITROGEN 17.5 mg/dL (7-18); TOT PROT 7.9 g/dl (6.4-8.2)
[2023-06-30 12:44] LABS: CALCIUM 9.2 mg/dL (8.5-10.1)
[2023-06-30] MEDS ORDERED: traZODone HCL 50 MG TABLET (FP) PO SCH (22:00)
[2023-07-01] MEDS ORDERED: diazePAM 5 MG TABLET PO SCH (06:00)
[2023-07-02] MEDS ORDERED: diazePAM 5 MG TABLET PO SCH (06:00)
[2023-07-03] MEDS ORDERED: diazePAM 5 MG TABLET PO ONE (06:00)
== END 2023-06-30 13:20 | disposition left against medical advice (07) | DRG 770 ==
LOC: YASAS 12:32 → Y3N 15:30 → Y6N 16:30
PROVIDERS: ADMIT Allergy & Immunology; ATTEND Surgery
PROC: HZ2ZZZZ Detoxification Services for Substance Abuse Treatment (ICD-10-PCS; principal; 2023-06-29)
DX: F10.230 Alcohol dependence with withdrawal, uncomplicated (principal); F14.20 Cocaine dependence, uncomplicated; F17.210 Nicotine dependence, cigarettes, uncomplicated; F31.9 Bipolar disorder, unspecified; F19.282 Other psychoactive substance dependence with psychoactive substance-induced sleep disorder; F19.280 Other psychoactive substance dependence with psychoactive substance-induced anxiety disorder; E11.42 Type 2 diabetes mellitus with diabetic polyneuropathy; J45.20 Mild intermittent asthma, uncomplicated; Z56.0 Unemployment, unspecified; Z59.00 Homelessness unspecified; Z88.1 Allergy status to other antibiotic agents
CPT/HCPCS: 36415; 80053; 80307; 85027; 86780; 87635; 87811